=== PATIENT | female | born 1945 | race Caucasian/White ===

== ENCOUNTER 2017-06-26 09:59 | Observation (INO) | payer MEDICARE, BC ==
[2017-06-26] MEDS ORDERED: IPRATROPIUM-ALBUTEROL 3 ML NEB INHALATION STA (10:14)
[2017-06-26] MEDS ORDERED: SODIUM CHLORIDE 0.9% 1,000 ML IV STA (10:14)
[2017-06-26 10:37] LABS: Basophils % (A) 0 %; Eosinophils # (A) 0.2 k/uL (0-0.7); Eosinophils % (A) 3 %; HCT 42.5 % (34.0-46.0); Lymphocytes # (A) 2.3 k/uL (1.0-4.8); Lymphocytes % (A) 29 %; MCH 30.2 pg (25.0-35.0); MCV 91.7 fL (80.0-100.0); Mean Platelet Volume 6.8; Monocytes # (A) 0.5 k/uL (0-1.0); Monocytes % (A) 6 %; Neutrophils # (A) 4.7 k/uL (1.3-7.7); Neutrophils % (A) 60 %; Platelet Count 224 k/uL (150-450); RBC 4.64 m/uL (3.80-5.40); RDW 12.6 % (11.5-15.5); WBC 7.9 k/uL (3.8-10.6)
--- NOTE | 2017-06-26 10:38 | ED ---
SOB HPI - General Chief Complaint: Shortness of Breath Stated Complaint: Sob Time Seen by Provider: 06/26/17 10:11 Source: patient, RN notes reviewed Mode of arrival: wheelchair Limitations: no limitations - History of Present Illness Initial Comments: This is a 72-year-old female history of asthma and ALLERGIES who presents with complaints of shortness of breath this morning. She was making her bed when she had the exertional dyspnea. No overt chest pain she states she's been battling cold symptoms for the past 2 months with coughing and sneezing. No overt phlegm production no chest pain fevers chills sweats or other symptoms at this time. MD Complaint: shortness of breath - Related Data Home Medications Medication Instructions Recorded Confirmed Cholecalciferol [Vitamin D3] 5,000 unit PO DAILY 01/25/15 06/26/17 Gabapentin [Neurontin] 300 mg PO HS 01/25/15 06/26/17 Glucosam/Jaren-Msm1/C/Robert/Bosw 1 tab PO DAILY 01/25/15 06/26/17 [Glucosamine-Chondroitin Tablet] Ranitidine HCl 150 mg PO HS 01/25/15 06/26/17 Tolterodine [Detrol] 2 mg PO BID 01/25/15 06/26/17 Vitamin B Complex 1 cap PO DAILY 01/25/15 06/26/17 metFORMIN HCL [Glucophage] 500 mg PO DAILY 01/25/15 06/26/17 Biotin 5 mg PO DAILY 02/01/15 06/26/17 Triamcinolone Acetonide [Nasacort] 2 spray EA NOSTRIL DAILY 02/01/15 06/26/17 Aspirin [Adult Low Dose Aspirin EC] 81 mg PO DAILY 01/11/16 06/26/17 Cetirizine HCl 10 mg PO DAILY 01/11/16 06/26/17 Albuterol Sulfate [Proair Hfa] 2 puff INHALATION RT-Q6H PRN 06/26/17 06/26/17 Amoxicillin 2,000 mg PO ONCE PRN 06/26/17 06/26/17 Ascorbic Acid [Vitamin C] 500 mg PO DAILY 06/26/17 06/26/17 Atenolol 25 mg PO DAILY 06/26/17 06/26/17 Atorvastatin Calcium [Lipitor] 10 mg PO HS 06/26/17 06/26/17 Esomeprazole Magnesium [NexIUM] 20 mg PO DAILY 06/26/17 06/26/17 Estrogens, Conjugated Cream 1 applicator VAGINAL Q72H 06/26/17 06/26/17 [Premarin Cream] Ibuprofen [Advil] 200 mg PO Q8HR PRN 06/26/17 06/26/17 Lisinopril [Prinivil] 5 mg PO DAILY 06/26/17 06/26/17 Montelukast Sodium [Singulair] 10 mg PO HS 06/26/17 06/26/17 Sodium Chloride [Saline Nasal 1 spray EA NOSTRIL QID PRN 06/26/17 06/26/17 [place]] guaiFENesin-Coden 100-10MG/5ML 10 ml PO Q6HR PRN 06/26/17 06/26/17 [Robitussin AC] Allergies Allergy/AdvReac Type Severity Reaction Status Date / Time adhesive Allergy blisters Verified 06/26/17 11:30 Sulfa (Sulfonamide Allergy Unknown Verified 06/26/17 11:30 Antibiotics) sulfamethoxazole Allergy Rash/Hives Verified 06/26/17 11:30 [From Bactrim] trimethoprim [From Bactrim] Allergy Rash/Hives Verified 06/26/17 11:30 Review of Systems ROS Statement: Those systems with pertinent positive or pertinent negative responses have been documented in the HPI. ROS Other: All systems not noted in ROS Statement are negative. Past Medical History Past Medical History: Asthma, Diabetes Mellitus, Fibromyalgia, GERD/Reflux, Hyperlipidemia, Osteoarthritis (OA), Pneumonia, Skin Disorder Additional Past Medical History / Comment(s): varicose veins, occ "irregular/ fast heart beat", superfiscial thrombophlibitis, spinal stenosis, scoliosis, constipation, hiatal hernia, "bladder spasms", dry patches on skin on hands and arms, degenerative disk disease, bladder leakage History of Any Multi-Drug Resistant Organisms: None Reported Past Surgical History: Breast Surgery, Hysterectomy, Joint Replacement, Orthopedic Surgery, Tonsillectomy Additional Past Surgical History / Comment(s): breast biopsy, neuroma brennen feet removed, rt ankle surgery, sinus surgery, brennen cataracts, left hip replacement Additional Past Anesthesia/Blood Transfusion Reaction / Comment(s): "doesn't take much", Past Psychological History: Anxiety Smoking Status: Never smoker Past Alcohol Use History: None Reported Past Drug Use History: None Reported - Past Family History Mother Family Medical History: Cancer General Exam - General Exam Comments Initial Comments: This is a well-developed well-nourished awake alert oriented 3 female Limitations: no limitations General appearance: alert, anxious Head exam: Present: atraumatic, normocephalic, normal inspection Eye exam: Present: normal appearance, PERRL, EOMI. Absent: scleral icterus, conjunctival injection, periorbital swelling ENT exam: Present: normal exam, mucous membranes moist Neck exam: Present: normal inspection. Absent: tenderness, meningismus, lymphadenopathy Respiratory exam: Present: decreased breath sounds. Absent: respiratory distress, wheezes, rales, rhonchi, stridor Cardiovascular Exam: Present: regular rate, normal rhythm, normal heart sounds. Absent: systolic murmur, diastolic murmur, rubs, gallop, clicks GI/Abdominal exam: Present: soft, normal bowel sounds. Absent: distended, tenderness, guarding, rebound, rigid Extremities exam: Present: normal inspection, full ROM, normal capillary refill. Absent: tenderness, pedal edema, joint swelling, calf tenderness Back exam: Present: normal inspection Neurological exam: Present: alert, oriented X3, CN II-XII intact Psychiatric exam: Present: normal affect, anxious Skin exam: Present: warm, dry, intact, normal color. Absent: rash Course Vital Signs 06/26/17 06/26/17 06/26/17 10:01 10:44 12:56 Temperature 98.7 F Pulse Rate 79 68 90 Respiratory 22 18 Rate Blood Pressure 136/74 123/64 O2 Sat by Pulse 99 98 Oximetry 06/26/17 13:37 Temperature Pulse Rate 107 H Respiratory 20 Rate Blood Pressure O2 Sat by Pulse 97 Oximetry - Reevaluation(s) Reevaluation #1: 06/26/17 14:11 The patient reconsidered going home she would like to stay in the hospital. I did discuss case with Dr. Andrade. Patient will be admitted with cardiology consultation. Patient is requesting Dr. Alexander. Medical Decision Making - Medical Decision Making Patient had no further symptoms she was able ambulate without difficulty with currently no shortness of breath. Her saturations were maintained in the high 90s to 100% on room air. We did a long discussion regarding the possibilities of the etiology of the shortness of breath today pulmonary etiologies Ruled out at this time cardiac is considered I did offer the patient admission today she would rather go home she does have an appointment to see Dr. Alexander in 2 days. The patient does take aspirin every day. Patient was invited back at any time I did have a long discussion with her regarding findings of angina and anginal equivalents which she could possibly experience including chest pain shortness of breath diaphoresis nausea vomiting etc. - Lab Data Result diagrams: 06/26/17 10:23 06/26/17 10:23 Lab Results 06/26/17 06/26/17 06/26/17 Range/Units 10:23 10: 10:23 WBC 7.9 (3.8-10.6) k/uL RBC 4.64 (3.80-5.40) m/uL Hgb 14.0 (11.4-16.0) gm/dL Hct 42.5 (34.0-46.0) % MCV 91.7 (80.0-100.0) fL MCH 30.2 (25.0-35.0) pg MCHC 33.0 (31.0-37.0) g/dL RDW 12.6 (11.5-15.5) % Plt Count 224 (150-450) k/uL Neutrophils % 60 % Lymphocytes % 29 % Monocytes % 6 % Eosinophils % 3 % Basophils % 0 % Neutrophils # 4.7 (1.3-7.7) k/uL Lymphocytes # 2.3 (1.0-4.8) k/uL Monocytes # 0.5 (0-1.0) k/uL Eosinophils # 0.2 (0-0.7) k/uL Basophils # 0.0 (0-0.2) k/uL PT (9.0-12.0) sec INR (<1.2) APTT (22.0-30.0) sec D-Dimer (<0.60) mg/L FEU Sodium 140 (137-145) mmol/L Potassium 4.1 (3.5-5.1) mmol/L Chloride 105 (98-107) mmol/L Carbon Dioxide 24 (22-30) mmol/L Anion Gap 11 mmol/L BUN 12 (7-17) mg/dL Creatinine 0.69 (0.52-1.04) mg/dL Est GFR (MDRD) Af Amer >60 (>60 ml/min/1.73 sqM) Est GFR (MDRD) Non-Af >60 (>60 ml/min/1.73 sqM) Glucose 135 H (74-99) mg/dL Calcium 10.4 H (8.4-10.2) mg/dL Total Bilirubin 0.4 (0.2-1.3) mg/dL AST 21 (14-36) U/L ALT 32 (9-52) U/L Alkaline Phosphatase 84 (38-126) U/L Total Creatine Kinase 83 (30-135) U/L CK-MB (CK-2) 1.2 (0.0-2.4) ng/mL CK-MB (CK-2) Rel Index 1.4 Troponin I <0.012 (0.000-0.034) ng/mL NT-Pro-B Natriuret Pep pg/mL Total Protein 6.9 (6.3-8.2) g/dL Albumin 3.9 (3.5-5.0) g/dL 06/26/17 06/26/17 Range/Units 10:23 10:23 WBC (3.8-10.6) k/uL RBC (3.80-5.40) m/uL Hgb (11.4-16.0) gm/dL Hct (34.0-46.0) % MCV (80.0-100.0) fL MCH (25.0-35.0) pg MCHC (31.0-37.0) g/dL RDW (11.5-15.5) % Plt Count (150-450) k/uL Neutrophils % % Lymphocytes % % Monocytes % % Eosinophils % % Basophils % % Neutrophils # (1.3-7.7) k/uL Lymphocytes # (1.0-4.8) k/uL Monocytes # (0-1.0) k/uL Eosinophils # (0-0.7) k/uL Basophils # (0-0.2) k/uL PT 10.3 (9.0-12.0) sec INR 1.1 (<1.2) APTT 24.0 (22.0-30.0) sec D-Dimer 1.04 H (<0.60) mg/L FEU Sodium (137-145) mmol/L Potassium (3.5-5.1) mmol/L Chloride (98-107) mmol/L Carbon Dioxide (22-30) mmol/L Anion Gap mmol/L BUN (7-17) mg/dL Creatinine (0.52-1.04) mg/dL Est GFR (MDRD) Af Amer (>60 ml/min/1.73 sqM) Est GFR (MDRD) Non-Af (>60 ml/min/1.73 sqM) Glucose (74-99) mg/dL Calcium (8.4-10.2) mg/dL Total Bilirubin (0.2-1.3) mg/dL AST (14-36) U/L ALT (9-52) U/L Alkaline Phosphatase (38-126) U/L Total Creatine Kinase (30-135) U/L CK-MB (CK-2) (0.0-2.4) ng/mL CK-MB (CK-2) Rel Index Troponin I (0.000-0.034) ng/mL NT-Pro-B Natriuret Pep 30 pg/mL Total Protein (6.3-8.2) g/dL Albumin (3.5-5.0) g/dL - EKG Data -: EKG Interpreted by Me EKG shows normal: sinus rhythm (Normal sinus rhythm rate 74. Interval 156 QRS duration 70 QT since QTC of no acute ST-T wave changes) - Radiology Data Radiology results: report reviewed (I did review the imaging and reports. X- ray was not remarkable CAT scan shows no PE bilateral pulmonary nodules are noted however. The CAT scan was considered for any further evaluation.), image reviewed Disposition Clinical Impression: Bronchospasm, acute, Exertional dyspnea, Angina effort Disposition: ADMITTED IP TO THIS [facility] Condition: Stable Additional Instructions: Keep your follow-up appointment with Dr. Alexander in 2 days. Please return for further evaluation should he experience any more symptoms as we discussed.
[2017-06-26 10:47] LABS: D-Dimer 1.04 mg/L FEU (<0.60); INR 1.1 (<1.2); Prothrombin Time 10.3 sec (9.0-12.0)
[2017-06-26 10:48] LABS: ALT 32 U/L (9-52); AST 21 U/L (14-36); Albumin 3.9 g/dL (3.5-5.0); Alkaline Phosphatase 84 U/L (38-126); Anion Gap 11 mmol/L; Blood Urea Nitrogen 12 mg/dL (7-17); Calcium 10.4 mg/dL (8.4-10.2); Carbon Dioxide 24 mmol/L (22-30); Chloride 105 mmol/L (98-107); Glucose 135 mg/dL (74-99); Potassium 4.1 mmol/L (3.5-5.1); Sodium 140 mmol/L (137-145); Total Bilirubin 0.4 mg/dL (0.2-1.3); Total Protein 6.9 g/dL (6.3-8.2)
[2017-06-26 11:07] LABS: Creatine Kinase 83 U/L (30-135)
--- NOTE | 2017-06-26 11:17 | XR ---
EXAMINATION TYPE: XR chest 2V DATE OF EXAM: 06/26/2017 COMPARISON: NONE TECHNIQUE: PA and lateral views submitted. HISTORY: Shortness of breath FINDINGS: The lungs are clear and there is no pneumothorax, pleural effusion, or focal pneumonia. Curvature t he spine noted. Arthropathy of the shoulders with diffuse osteopenia. No overt failure. Degenerative changes seen. IMPRESSION: 1. No acute process.
[2017-06-26 11:18] LABS: Creatine Kinase MB 1.2 ng/mL (0.0-2.4); Troponin I <0.012 ng/mL (0.000-0.034)
[2017-06-26] MEDS ORDERED: RX INFO: IV CONTRAST WAS GIVEN 1 EACH MISC MISCELLANE PRN (11:40)
--- NOTE | 2017-06-26 12:26 | CT ---
EXAMINATION TYPE: CT angio chest DATE OF EXAM: 06/26/2017 COMPARISON: 06/26/2017 chest radiograph HISTORY: Shortness of breath and dizziness CT DLP: 478.4 mGycm. Automated Exposure Control for Dose Reduction was Utilized. CONTRAST: CTA scan of the thorax is performed with IV Contrast, patient injected with 100 mL of Omnipaque 350, pulmonary embolism protocol. MIP Images are created on CT scanner and reviewed. FINDINGS: LUNGS: The lungs are grossly clear, there is no concerning parenchymal mass or nodule identified. T here is no pleural effusion or pneumothorax seen. The tracheobronchial tree is patent. 4 mm probable perifissural lymph node is seen on series 5 image 74. Encasing right middle lobe segmental pulmonary artery on series 5 image 79 and series 10 image 63 there is a 1.0 x 1.0 x 0.9 cm right middle lobe p ulmonary nodule. A left basilar subpleural 3 mm pulmonary nodule is present on series 5 image 113. 4 mm subpleural nodule within the left lower lobe is seen on image 87. MEDIASTINUM: There is satisfactory enhancement of the pulmonary artery and its branches, there is no CT evidence for pulmonary embolism. There are no greater than 1 cm hilar or mediastinal lymph nodes. The largest mediastinal lymph node is seen within the pretracheal space measuring 7 mm in short axi s on image 35. No cardiomegaly or pericardial effusion is seen. OTHER: Small hiatal hernia is noted. Mild multilevel degenerative disc disease of the visualized thor acolumbar spine is present. IMPRESSION: 1. No CT evidence of pulmonary bolus. No focal consolidation, pleural effusion or pneumothorax. 2. Bilateral pulmonary nodules the largest measuring 1.0 cm encasing a right middle lobe segmental pu lmonary artery. Given its proximity to the pulmonary artery percutaneous biopsy would be difficult an d PET CT could be utilized for further evaluation.
[2017-06-26] MEDS ORDERED: NITROGLYCERIN SL TABS 0.4 MG TAB SUBLINGUAL PRN (14:13)
[2017-06-26] MEDS ORDERED: HEPARIN SODIUM,PORCINE 5,000 UNIT/ML 1 ML VIAL IV ONE (14:13)
[2017-06-26] MEDS ORDERED: HEPARIN SOD,PORK IN 0.45% NACL 25,000 UNIT in 0.45% NACL 1 500ML.BAG IV SCH (14:15)
[2017-06-26] MEDS ORDERED: SODIUM CHLORIDE 0.9% 1,000 ML IV SCH (14:15)
[2017-06-26] MEDS ORDERED: guaiFENesin-Coden 100-10MG/5ML 10 ML CUP PO PRN (14:17)
[2017-06-26] MEDS ORDERED: ALBUTEROL NEBULIZED 2.5 MG/3 ML INHALATION PRN (14:17)
[2017-06-26] MEDS ORDERED: IBUPROFEN 200 MG TAB PO PRN (14:17)
[2017-06-26] MEDS ORDERED: NALOXONE 0.4 MG/ML 1 ML VIAL IV PRN (15:10)
--- NOTE | 2017-06-26 15:33 | P.HPIM ---
History of Present Illness H&P Date: 06/26/17 Chief Complaint: SOB 72-year-old female history of asthma and seasonal ALLERGIES presented to the emergency department with complaints of shortness of breath that started this morning. Patient has been actually having shortness of breath over the last several months, she described having no energy, low appetite and general weakness. She has been struggling with a cold for the last 3 weeks. Her primary care physician prescribed amoxicillin and a steroid course for her and 3 days ago when she finished this course she started to feel better she try to increase her activity level and when she did that she started becoming severely short of breath. The shortness of breath is mainly exertional and is relieved by rest. No overt chest pain. She has been having cough productive of white and yellow phlegm at times, no hemoptysis. No nausea or vomiting. No fevers or chills. She thinks she got an upper respiratory infection because her also got sick after her. When I interviewed her she was just coming back from the bathroom and she was short of breath just from doing that. When the ER physician walked around all she got short-winded as well. Review of Systems 12 point review of system was performed, negative except for HPI Past Medical History Past Medical History: Asthma, Diabetes Mellitus, Fibromyalgia, GERD/Reflux, Hyperlipidemia, Osteoarthritis (OA), Pneumonia, Skin Disorder Additional Past Medical History / Comment(s): varicose veins, occ "irregular/ fast heart beat", superfiscial thrombophlibitis, spinal stenosis, scoliosis, constipation, hiatal hernia, "bladder spasms", dry patches on skin on hands and arms, degenerative disk disease, bladder leakage History of Any Multi-Drug Resistant Organisms: None Reported Past Surgical History: Breast Surgery, Hysterectomy, Joint Replacement, Orthopedic Surgery, Tonsillectomy Additional Past Surgical History / Comment(s): breast biopsy, neuroma brennen feet removed, rt ankle surgery, sinus surgery, brennen cataracts, left hip replacement Additional Past Anesthesia/Blood Transfusion Reaction / Comment(s): "doesn't take much", Past Psychological History: Anxiety Smoking Status: Never smoker Past Alcohol Use History: None Reported Past Drug Use History: None Reported - Past Family History Mother Family Medical History: Cancer Medications and Allergies Home Medications Medication Instructions Recorded Confirmed Type Cholecalciferol [Vitamin D3] 5,000 unit PO DAILY 01/25/15 06/26/17 History Gabapentin [Neurontin] 300 mg PO HS 01/25/15 06/26/17 History Glucosam/Jaren-Msm1/C/Robert/Bosw 1 tab PO DAILY 01/25/15 06/26/17 History [Glucosamine-Chondroitin Tablet] Ranitidine HCl 150 mg PO HS 01/25/15 06/26/17 History Tolterodine [Detrol] 2 mg PO BID 01/25/15 06/26/17 History Vitamin B Complex 1 cap PO DAILY 01/25/15 06/26/17 History metFORMIN HCL [Glucophage] 500 mg PO DAILY 01/25/15 06/26/17 History Biotin 5 mg PO DAILY 02/01/15 06/26/17 History Triamcinolone Acetonide [Nasacort] 2 spray EA NOSTRIL DAILY 02/01/15 06/26/17 History Aspirin [Adult Low Dose Aspirin EC] 81 mg PO DAILY 01/11/16 06/26/17 History Cetirizine HCl 10 mg PO DAILY 01/11/16 06/26/17 History Albuterol Sulfate [Proair Hfa] 2 puff INHALATION RT-Q6H PRN 06/26/17 06/26/17 History Amoxicillin 2,000 mg PO ONCE PRN 06/26/17 06/26/17 History Ascorbic Acid [Vitamin C] 500 mg PO DAILY 06/26/17 06/26/17 History Atenolol 25 mg PO DAILY 06/26/17 06/26/17 History Atorvastatin Calcium [Lipitor] 10 mg PO HS 06/26/17 06/26/17 History Esomeprazole Magnesium [NexIUM] 20 mg PO DAILY 06/26/17 06/26/17 History Estrogens, Conjugated Cream 1 applicator VAGINAL Q72H 06/26/17 06/26/17 History [Premarin Cream] Ibuprofen [Advil] 200 mg PO Q8HR PRN 06/26/17 06/26/17 History Lisinopril [Prinivil] 5 mg PO DAILY 06/26/17 06/26/17 History Montelukast Sodium [Singulair] 10 mg PO HS 06/26/17 06/26/17 History Sodium Chloride [Saline Nasal 1 spray EA NOSTRIL QID PRN 06/26/17 06/26/17 History [place]] guaiFENesin-Coden 100-10MG/5ML 10 ml PO Q6HR PRN 06/26/17 06/26/17 History [Robitussin AC] Allergies Allergy/AdvReac Type Severity Reaction Status Date / Time adhesive Allergy blisters Verified 06/26/17 11:30 Sulfa (Sulfonamide Allergy Unknown Verified 06/26/17 11:30 Antibiotics) sulfamethoxazole Allergy Rash/Hives Verified 06/26/17 11:30 [From Bactrim] trimethoprim [From Bactrim] Allergy Rash/Hives Verified 06/26/17 11:30 Physical Exam Vitals: Vital Signs Temp Pulse Resp BP Pulse Ox 06/26/17 15:06 97.4 F L 81 18 128/63 99 06/26/17 13:37 107 H 20 97 06/26/17 12:56 90 18 123/64 98 06/26/17 10:44 68 06/26/17 10:01 98.7 F 79 22 136/74 99 Intake and Output 06/26/17 06/26/17 06/26/17 06:59 14:59 22:59 Other: Weight 90.718 kg Patient Weight 06/27/17 06:59 Weight 90.718 kg Constitutional: No acute distress, conversant, pleasant Eyes:Anicteric sclerae, moist conjunctiva, no lid-lag, PERRLA, ENMT: Oropharynx clear, no erythema, exudates Neck: Supple, FROM, no masses, or JVD, No carotid bruits, No thyromegaly Lungs: Clear to auscultation, Clear to percussion, Normal respiratory effort, no accessory muscle use Cardiovascular: Heart regular in rate and rhythm, No murmurs, gallops, or rubs, No peripheral edema Abdominal: Soft, Nontender, no guarding, rebound or rigidity, Normoactive bowel sounds, No hepatomegaly, No splenomegaly, No palpable mass Skin: Normal temperature, tone, texture, turgor, no induration, No subcutaneous nodules, No rash, lesions, No ulcers Extremities: No digital cyanosis, No clubbing, Pedal pulses intact and symmetrical, Radial pulses intact and symmetrical, No calf tenderness Psychiatric: Alert and oriented to person, place and time, appropriate affect, intact judgement Neuro: Muscles Strength 5/5 in all 4 extremities, Sensation to light touch grossly present throughout, Cranial nerves II-XII grossly intact, no focal sensory deficits Results CBC & Chem 7: 06/26/17 10:23 06/26/17 10:23 Labs: Abnormal Lab Results - Last 24 Hours (Table) 06/26/17 06/26/17 Range/Units 10:23 10:23 D-Dimer 1.04 H (<0.60) mg/L FEU Glucose 135 H (74-99) mg/dL Calcium 10.4 H (8.4-10.2) mg/dL Assessment and Plan Plan: #1 Acute shortness of breath/history of asthma: She is not hypoxic, unclear etiology rule out non-ST elevation myocardial infarction. She does not seem to be having asthma exacerbation as she is not wheezing. Computed tomography scan of the chest showed some pulmonary nodules, will consult with pulmonary. No evidence of PE, consolidation or pulmonary edema was found in computed tomography scan. Cycle troponins Check influenza nasal screen Cardiology consult Heparin drip Continue aspirin, beta latoya and statin DuoNebs every 6 hours #2 Diabetes Mellitus type2: Sliding scale insulin with blood sugar checks every before meals and at bedtime Hold metformin #3 Fibromyalgia, GERD/Reflux, Hyperlipidemia, Osteoarthritis (OA): All stable Continue home medications
[2017-06-26] MEDS ORDERED: LISINOPRIL 5 MG TAB PO STA (16:42)
[2017-06-26] MEDS ORDERED: ATENOLOL 25 MG TAB PO STA (16:42)
[2017-06-26 16:55] LABS: Creatine Kinase 107 U/L (30-135)
[2017-06-26 17:03] LABS: Glucose,Whole Blood 158 mg/dL (75-99)
[2017-06-26 17:08] LABS: Troponin I <0.012 ng/mL (0.000-0.034)
[2017-06-26 17:16] LABS: Creatine Kinase MB 2.7 ng/mL (0.0-2.4)
[2017-06-26] MEDS: INSULIN ASPART 100 UNIT/ML 1 ML 10 ML VIAL SQ SCH ×2 (17:34→21:02)
[2017-06-26] MEDS: NITROGLYCERIN OINT 1 INCH/GM PACKET TOPICAL SCH (19:45)
[2017-06-26 20:29] LABS: Glucose,Whole Blood 120 mg/dL (75-99)
[2017-06-26] MEDS ORDERED: FAMOTIDINE 20 MG TAB PO SCH (21:00)
[2017-06-26] MEDS ORDERED: ATORVASTATIN 10 MG TAB PO SCH (21:00)
[2017-06-26] MEDS ORDERED: GABAPENTIN 300 MG CAP PO SCH (21:00)
[2017-06-26] MEDS ORDERED: MONTELUKAST 10 MG TAB PO SCH (21:00)
[2017-06-26 22:44] LABS: Creatine Kinase 176 U/L (30-135)
[2017-06-26 22:55] LABS: Troponin I <0.012 ng/mL (0.000-0.034)
[2017-06-27 04:27] LABS: Creatine Kinase MB 4.3 ng/mL (0.0-2.4)
[2017-06-27] MEDS: NITROGLYCERIN OINT 1 INCH/GM PACKET TOPICAL SCH ×2 (05:40→06:08)
[2017-06-27 06:31] LABS: Glucose,Whole Blood 103 mg/dL (75-99)
[2017-06-27 07:26] LABS: Basophils # (A) 0.1 k/uL (0-0.2); Basophils % (A) 1 %; Eosinophils # (A) 0.3 k/uL (0-0.7); Eosinophils % (A) 4 %; HCT 44.5 % (34.0-46.0); HGB 14.1 gm/dL (11.4-16.0); Lymphocytes # (A) 3.1 k/uL (1.0-4.8); Lymphocytes % (A) 34 %; MCH 29.9 pg (25.0-35.0); MCHC 31.7 g/dL (31.0-37.0); MCV 94.2 fL (80.0-100.0); Mean Platelet Volume 7.3; Monocytes # (A) 0.5 k/uL (0-1.0); Monocytes % (A) 6 %; Neutrophils % (A) 54 %; Platelet Count 229 k/uL (150-450); RBC 4.73 m/uL (3.80-5.40); RDW 13.7 % (11.5-15.5); WBC 9.1 k/uL (3.8-10.6)
[2017-06-27] MEDS ORDERED: PANTOPRAZOLE 40 MG TABLET PO SCH (07:30)
[2017-06-27] MEDS ORDERED: metFORMIN 500 MG TAB PO SCH (07:30)
--- NOTE | 2017-06-27 07:32 | P.CRDCN ---
History of Present Illness Consult date: 06/27/17 Chief complaint: Chest pain History of present illness: This is a pleasant 72-year-old female patient who sees Dr. Alexander in the office on regular basis with a past medical history significant for diabetes as well as dyslipidemia presented to the hospital complaining of chest discomfort. The patient did have flu symptoms about 2 weeks ago. Subsequently she developed cough productive of white sputum. She was feeling better and recovering well until about a week ago when she started experiencing chest discomfort. She describes a chest tightness, across the chest, without any radiation to the arm or neck or shoulders and it was associated with shortness of breath without any sweating or dizziness or lightheadedness or syncope. She stated the tightness sometimes is exertional when she walked and better with resting. The patient is not aware of any prior history of coronary artery disease but she does have diabetes and dyslipidemia. The d-dimer came in to be alleviated but the CTA of the chest did not show any PE but it did show a pulmonary nodule. The EKG showed sinus rhythm without any significant ST or T-wave abnormalities. 3 sets of cardiac enzymes came in to be unremarkable. Past Medical History Past Medical History: Asthma, Diabetes Mellitus, Fibromyalgia, GERD/Reflux, Hyperlipidemia, Osteoarthritis (OA), Pneumonia, Skin Disorder Additional Past Medical History / Comment(s): varicose veins, occ "irregular/ fast heart beat-pvs'c", superficial thrombophlebitis, spinal stenosis, scoliosis , constipation, hiatal hernia, "bladder spasms-leakage of urine", dry patches on skin on hands and arms, degenerative disk disease, neuropathy, seasonal allergies. History of Any Multi-Drug Resistant Organisms: None Reported Past Surgical History: Breast Surgery, Hysterectomy, Joint Replacement, Orthopedic Surgery, Tonsillectomy Additional Past Surgical History / Comment(s): breast biopsy-neg, neuroma brennen feet removed,discectomy, rt ankle surgery, sinus surgery, brennen cataracts, left hip replacement, partial hysterectomy-still hs ovaries, bunionectomy Additional Past Anesthesia/Blood Transfusion Reaction / Comment(s): "doesn't take much", Smoking Status: Never smoker - Past Family History Father Family Medical History: Dementia, Diabetes Mellitus, Hypertension Additional Family Medical History / Comment(s): enlarged heart, obesity Mother Family Medical History: Cancer Medications and Allergies Home Medications Medication Instructions Recorded Confirmed Type Cholecalciferol [Vitamin D3] 5,000 unit PO DAILY 01/25/15 06/26/17 History Gabapentin [Neurontin] 300 mg PO HS 01/25/15 06/26/17 History Glucosam/Jaren-Msm1/C/Robert/Bosw 1 tab PO DAILY 01/25/15 06/26/17 History [Glucosamine-Chondroitin Tablet] Ranitidine HCl 150 mg PO HS 01/25/15 06/26/17 History Tolterodine [Detrol] 2 mg PO BID 01/25/15 06/26/17 History Vitamin B Complex 1 cap PO DAILY 01/25/15 06/26/17 History metFORMIN HCL [Glucophage] 500 mg PO DAILY 01/25/15 06/26/17 History Biotin 5 mg PO DAILY 02/01/15 06/26/17 History Triamcinolone Acetonide [Nasacort] 2 spray EA NOSTRIL DAILY 02/01/15 06/26/17 History Aspirin [Adult Low Dose Aspirin EC] 81 mg PO DAILY 01/11/16 06/26/17 History Cetirizine HCl 10 mg PO DAILY 01/11/16 06/26/17 History Albuterol Sulfate [Proair Hfa] 2 puff INHALATION RT-Q6H PRN 06/26/17 06/26/17 History Amoxicillin 2,000 mg PO ONCE PRN 06/26/17 06/26/17 History Ascorbic Acid [Vitamin C] 500 mg PO DAILY 06/26/17 06/26/17 History Atenolol 25 mg PO DAILY 06/26/17 06/26/17 History Atorvastatin Calcium [Lipitor] 10 mg PO HS 06/26/17 06/26/17 History Esomeprazole Magnesium [NexIUM] 20 mg PO DAILY 06/26/17 06/26/17 History Estrogens, Conjugated Cream 1 applicator VAGINAL Q72H 06/26/17 06/26/17 History [Premarin Cream] Ibuprofen [Advil] 200 mg PO Q8HR PRN 06/26/17 06/26/17 History Lisinopril [Prinivil] 5 mg PO DAILY 06/26/17 06/26/17 History Montelukast Sodium [Singulair] 10 mg PO HS 06/26/17 06/26/17 History Sodium Chloride [Saline Nasal 1 spray EA NOSTRIL QID PRN 06/26/17 06/26/17 History [place]] guaiFENesin-Coden 100-10MG/5ML 10 ml PO Q6HR PRN 06/26/17 06/26/17 History [Robitussin AC] Allergies Allergy/AdvReac Type Severity Reaction Status Date / Time adhesive Allergy blisters Verified 06/26/17 11:30 Sulfa (Sulfonamide Allergy Unknown Verified 06/26/17 11:30 Antibiotics) sulfamethoxazole Allergy Rash/Hives Verified 06/26/17 11:30 [From Bactrim] trimethoprim [From Bactrim] Allergy Rash/Hives Verified 06/26/17 11:30 Physical Exam Vitals: Vital Signs Temp Pulse Pulse Resp BP BP Pulse Ox 06/27/17 04:00 97.8 F 77 18 101/66 98 06/26/17 22:21 18 06/26/17 19:53 97.8 F 79 18 111/66 98 06/26/17 19:39 18 06/26/17 17:01 98 06/26/17 16:20 97.5 F L 83 18 162/76 98 06/26/17 15:06 97.4 F L 81 18 128/63 99 06/26/17 13:37 107 H 20 97 06/26/17 12:56 90 18 123/64 98 06/26/17 10:44 68 06/26/17 10:01 98.7 F 79 22 136/74 99 Intake and Output 06/26/17 06/27/17 06/27/17 22:59 06:59 14:59 Other: Voiding Method Toilet Toilet # Voids 1 Weight 90.718 kg - Constitutional General appearance: no acute distress - Respiratory Respiratory: bilateral: CTA - Cardiovascular Rhythm: regular Heart sounds: normal: S1, S2 Results 06/26/17 10:23 06/26/17 10:23 Cardiac Enzymes 06/26/17 06/26/17 06/26/17 Range/Units 10:23 10:23 16:14 AST 21 (14-36) U/L CK-MB (CK-2) 1.2 2.7 H* (0.0-2.4) ng/mL Troponin I <0.012 <0.012 (0.000-0.034) ng/mL 06/26/17 Range/Units 22:06 AST (14-36) U/L CK-MB (CK-2) 4.3 H* (0.0-2.4) ng/mL Troponin I <0.012 (0.000-0.034) ng/mL Coagulation 06/26/17 06/26/17 Range/Units 10:23 22:06 PT 10.3 (9.0-12.0) sec APTT 24.0 46.1 H (22.0-30.0) sec CBC 06/26/17 Range/Units 10:23 WBC 7.9 (3.8-10.6) k/uL RBC 4.64 (3.80-5.40) m/uL Hgb 14.0 (11.4-16.0) gm/dL Hct 42.5 (34.0-46.0) % Plt Count 224 (150-450) k/uL Comprehensive Metabolic Panel 06/26/17 Range/Units 10:23 Sodium 140 (137-145) mmol/L Potassium 4.1 (3.5-5.1) mmol/L Chloride 105 (98-107) mmol/L Carbon Dioxide 24 (22-30) mmol/L BUN 12 (7-17) mg/dL Creatinine 0.69 (0.52-1.04) mg/dL Glucose 135 H (74-99) mg/dL Calcium 10.4 H (8.4-10.2) mg/dL AST 21 (14-36) U/L ALT 32 (9-52) U/L Alkaline Phosphatase 84 (38-126) U/L Total Protein 6.9 (6.3-8.2) g/dL Albumin 3.9 (3.5-5.0) g/dL Current Medications Generic Name Dose Route Start Last Admin Trade Name Freq PRN Reason Stop Dose Admin Albuterol Sulfate 2.5 mg 06/26/17 14:17 Ventolin Nebulized INHALATION RT-Q6H PRN Shortness Of Breath Ascorbic Acid 500 mg 06/27/17 09:00 Vitamin C PO DAILY [facility] Aspirin 81 mg 06/27/17 09:00 Aspirin PO DAILY [facility] Atenolol 25 mg 06/27/17 09:00 Tenormin PO DAILY ASHLEY Atorvastatin Calcium 10 mg 06/26/17 21:00 06/26/17 20:20 Lipitor PO 10 mg HS ASHLEY Administration Cholecalciferol 5,000 unit 06/27/17 09:00 Vitamin D3 PO DAILY [facility] Famotidine 20 mg 06/26/17 21:00 06/26/17 20:20 Pepcid PO 20 mg HS [facility] Administration Fluticasone Propionate 2 spray 06/27/17 09:00 Flonase Nasal [place] EA NOSTRIL DAILY [facility] Gabapentin 300 mg 06/26/17 21:00 06/26/17 20:20 Neurontin PO 300 mg HS [facility] Administration Guaifenesin/Codeine Phosphate 10 ml 06/26/17 14:17 Robitussin Ac PO Q6HR PRN Cough Heparin Sodium/Sodium Chloride 500 mls @ 19.95 mls/hr 06/26/17 14:15 15:04 25,000 unit/ Sodium Chloride IV 11 units/kg/hr .Q24H ASHLEY 19.95 mls/hr Protocol Administration 11 UNITS/KG/HR Sodium Chloride 1,000 mls @ 20 mls/hr 06/26/17 14:15 06/26/17 15:02 Saline 0.9% IV 20 mls/hr .Q24H [facility] Administration Ibuprofen 200 mg 06/26/17 14:17 Advil PO Q8HR PRN Mild Pain Insulin Aspart 0 unit 06/26/17 17:30 06/26/17 21:02 Novolog SQ Not Given ACHS [facility] Protocol Lisinopril 5 mg 06/27/17 09:00 Zestril PO DAILY [facility] Loratadine 10 mg 06/27/17 09:00 Claritin PO DAILY [facility] Metformin HCl 500 mg 06/27/17 07:30 Glucophage PO AC-BRKFST [facility] Miscellaneous Information 1 each 06/26/17 11:40 Rx Info: Iv Contrast Was Given MISCELLANE 06/28/17 11:40 DAILY PRN Per Protocol Montelukast Sodium 10 mg 06/26/17 21:00 06/26/17 20:20 Singulair PO 10 mg HS [facility] Administration Naloxone HCl 0.2 mg 06/26/17 15:10 Narcan IV Q2M PRN Opioid Reversal Nitroglycerin 1 inch 06/26/17 18:00 06/27/17 06:08 Nitro-Bid Oint TOPICAL Not Given Q6HR [facility] Nitroglycerin 0.4 mg 06/26/17 14:13 Nitrostat SUBLINGUAL Q5M PRN Chest Pain Oxybutynin Chloride 10 mg 06/27/17 09:00 Ditropan Xl PO DAILY ASHLEY Pantoprazole Sodium 40 mg 06/27/17 07:30 Protonix PO AC-BRKFST ASHLEY Vitamin B Complex/Vit C/Vit E/Zinc 1 each 06/27/17 09:00 Z-Bec PO DAILY ASHLEY Intake and Output 06/26/17 06/27/17 06/27/17 22:59 06:59 14:59 Other: Voiding Method Toilet Toilet # Voids 1 Weight 90.718 kg 06/26/17 10:23 06/26/17 10:23 Assessment and Plan Assessment: Assessment #1 intermittent episodes of chest discomfort #2 multiple risk factors for CAD including diabetes and dyslipidemia Plan #1 the patient was ruled out for acute coronary event #2 the EKG showed sinus rhythm without any ischemic changes #3 sets of cardiac enzymes came in to be unremarkable #4 I recommended proceeding with a stress test and follow-up with the patient. Thank you for allowing us participate in her care
[2017-06-27 07:34] VITALS: RESP 16
[2017-06-27 07:45] LABS: ALT 41 U/L (9-52); AST 27 U/L (14-36); Alkaline Phosphatase 92 U/L (38-126); Anion Gap 10 mmol/L; Blood Urea Nitrogen 13 mg/dL (7-17); Calcium 10.6 mg/dL (8.4-10.2); Carbon Dioxide 25 mmol/L (22-30); Chloride 108 mmol/L (98-107); Cholesterol 149 mg/dL (<200); Glucose 103 mg/dL (74-99); HDL Cholesterol 64 mg/dL (40-60); LDL Cholesterol,Calculated 66 mg/dL (0-99); Phosphorus 3.3 mg/dL (2.5-4.5); Potassium 4.8 mmol/L (3.5-5.1); Sodium 143 mmol/L (137-145); Total Bilirubin 0.5 mg/dL (0.2-1.3); Total Protein 6.9 g/dL (6.3-8.2); Triglycerides 95 mg/dL (<150)
[2017-06-27] MEDS ORDERED: LORATADINE 10 MG TAB PO SCH (09:00)
[2017-06-27] MEDS ORDERED: FLUTICASONE 50MCG/SPRAY NASAL 16GM EA NOSTRIL SCH (09:00)
[2017-06-27] MEDS ORDERED: CHOLECALCIFEROL 1,000 UNIT TAB PO SCH (09:00)
[2017-06-27] MEDS ORDERED: LISINOPRIL 5 MG TAB PO SCH (09:00)
[2017-06-27] MEDS ORDERED: ATENOLOL 25 MG TAB PO SCH (09:00)
[2017-06-27] MEDS ORDERED: NON-FORMULARY DRUG (Biotin [Biotin] 5 MG) PO SCH (09:00)
[2017-06-27] MEDS ORDERED: ASCORBIC ACID 500 MG TAB PO SCH (09:00)
[2017-06-27] MEDS ORDERED: B COMPLEX-VIT C-VIT E-ZINC 1 EACH TAB PO SCH (09:00)
[2017-06-27] MEDS ORDERED: ASPIRIN 325 MG TAB PO SCH (09:00)
[2017-06-27] MEDS ORDERED: NON-FORMULARY DRUG (Glucosam/Chon-Msm1/C/Mang/Bosw [Glucosamine-Chondroitin Tablet] 1 TAB) PO SCH (09:00)
[2017-06-27] MEDS ORDERED: ASPIRIN 81 MG PO SCH (09:00)
[2017-06-27] MEDS ORDERED: OXYBUTYNIN XL 5 MG TAB.ER.24 PO SCH (09:00)
[2017-06-27] MEDS: INSULIN ASPART 100 UNIT/ML 1 ML 10 ML VIAL SQ SCH (10:45)
--- NOTE | 2017-06-27 11:05 | NM ---
EXAMINATION TYPE: NM stress cardiolite complete DATE OF EXAM: 06/27/2017 COMPARISON: NONE HISTORY: Chest pain TECHNIQUE: After the intravenous administration of 10.89 mCi Tc 99m Sestamibi - Rest images obtained 45 minutes post injection. The patient exercised using a HERMILO protocol and 1 minute prior to peak exercise was injected with 29.2 mCi Tc 99m Sestamibi - Stress images obtained 10 minutes post inject ion. FINDINGS: Targeted heart rate was achieved during performance of the study. Review of stress and rest SPECT williams ges demonstrates no distinct perfusion abnormality. Gated analysis shows normal wall motion with an estimated left ventricular ejection fraction of 75 %. IMPRESSION: No scintigraphic evidence for reversible ischemia. Recommend echocardiographic correlation for elevat ed cardiac fraction.
[2017-06-27 11:42] VITALS: BP 140/100; PULSE 82; TEMP 97.4
--- NOTE | 2017-06-27 11:58 | EST ---
EXERCISE STRESS DATE OF SERVICE: 06/27/2017 AGE: 72 SEX: Female HT: 66" WT: 200 pounds PROTOCOL: CARDIOLITE HERMILO STAGE: II DURATION OF EXERCISE: 4:30 HEART RATE REST: 80 BLOOD PRESSURE REST: 92/68 MAXIMUM HEART RATE ACHIEVED: 131 MAXIMUM BLOOD PRESSURE: 127/68 85% MPHR: 128 100% MPHR: 150 METS: 4.6 INDICATIONS: Chest pain. CLINICAL INFORMATION: STRESS DATA: Pretesting physical examination showed heart rate 80, pressure 92/68 mmHg. Baseline EKG showed sinus mechanism. The patient exercised on the treadmill according to Hermilo protocol for a total of 4 minutes and 30 seconds and achieved 4.6 METs. Max heart rate was 131, which is about 87% of maximum predicted heart rate. Maximum blood pressure was 127/68 mmHg. Clinically, the patient developed shortness of breath without any chest pain or discomfort. The EKG showed about 0.[address]- segment depression during exercise as well as on recovery. CONCLUSION: 1. Poor exercise capacity. 2. Mild EKG changes in response to exercise. 3. Please follow up on the Cardiolite portion on a separate report from radiology department. MMODL / IJN: [id number] /
[2017-06-27 12:17] LABS: Glucose,Whole Blood 130 mg/dL (75-99)
--- NOTE | 2017-06-27 14:08 | ECHOF ---
Referral Reason:cp MEASUREMENTS -------- HEIGHT: 167.6 cm WEIGHT: 90.7 kg BP: IVSd: 1.2 cm (0.6 - 1.1) LVIDd: 3.6 cm (3.9 - 5.3) LVPWd: 1.2 cm (0.6 - 1.1) IVSs: 1.5 cm LVIDs: 2.5 cm LVPWs: 2.0 cm Ao Diam: 3.7 cm (2.0 - 3.7) AV Cusp: 2.3 cm (1.5 - 2.6) LA Diam: 3.3 cm (2.7 - 3.8) MV EXCURSION: 15.271 mm (> 18.000) MV EF SLOPE: 42 mm/s (70 - 150) EPSS: 0.3 cm MV E Alexander: 0.70 m/s MV DecT: 205 ms MV A Alexander: 0.70 m/s MV E/A Ratio: 1.01 RAP: 5.00 mmHg RVSP: 21.28 mmHg FINDINGS -------- Sinus rhythm. This was a technically difficult study with suboptimal apical views. The left ventricular size is normal. There is mild concentric left ventricular hypertrophy. Overa ll left ventricular systolic function is normal with, an EF between 55 - 60 %. The right ventricle is normal in size and function. The left atrium is normal in size. The right atrium is normal in size. The aortic valve is trileaflet, and appears structurally normal. No aortic stenosis or regurgitation. There is trace mitral regurgitation. Trace tricuspid regurgitation present. The right ventricular systolic pressure, as measured by Dopp ler, is 21.28mmHg. Pulmonic valve appears structurally normal. The aortic root size is normal. The pericardium is normal. CONCLUSIONS -------- 1. Sinus rhythm. 2. This was a technically difficult study with suboptimal apical views. 3. The left ventricular size is normal. 4. There is mild concentric left ventricular hypertrophy. 5. Overall left ventricular systolic function is normal with, an EF between 55 - 60 %. 6. The right ventricle is normal in size and function. 7. The left atrium is normal in size. 8. The right atrium is normal in size. 9. The aortic valve is trileaflet, and appears structurally normal. No aortic stenosis or regurgitati on. 10. There is trace mitral regurgitation. 11. Trace tricuspid regurgitation present. 12. The right ventricular systolic pressure, as measured by Doppler, is 21.28mmHg. 13. Pulmonic valve appears structurally normal. 14. The aortic root size is normal. 15. The pericardium is normal. [employer] SCIENCE TEACHER: Sun Croft RDCS
--- NOTE | 2017-06-27 14:31 | P.DS ---
Providers Date of admission: 06/26/17 14:13 Expected date of discharge: 06/27/17 Attending physician: Susi Montgomery, Consults: 06/26/17 14:13 Consult Physician Urgent Consulting Provider: Aiden Alexander Consult Reason/Comments: angina Do you want consulting provider notified?: Yes 06/26/17 15:13 Consult Physician Routine Consulting Provider: Ana Luisa Faith Consult Reason/Comments: lung nodules. Do you want consulting provider notified?: Yes Primary care physician: Sera Vanegas MD Hospital Course: 72-year-old female history of asthma and seasonal ALLERGIES presented to the emergency department with complaints of shortness of breath that started this morning. Patient has been actually having shortness of breath over the last several months, she described having no energy, low appetite and general weakness. She has been struggling with a cold for the last 3 weeks. Her primary care physician prescribed amoxicillin and a steroid course for her and 3 days ago when she finished this course she started to feel better she try to increase her activity level and when she did that she started becoming severely short of breath. The shortness of breath is mainly exertional and is relieved by rest. No overt chest pain. She has been having cough productive of white and yellow phlegm at times, no hemoptysis. No nausea or vomiting. No fevers or chills. She thinks she got an upper respiratory infection because her also got sick after her. When I interviewed her she was just coming back from the bathroom and she was short of breath just from doing that. When the ER physician walked around all she got short-winded as well. Patient was admitted to the hospital, she was evaluated by cardiology and pulmonary service. Initially patient was treated with heparin drip for presumed unstable angina. Troponins were cycled and stayed negative. Cardiology ordered a nuclear imaging stress testing and that came back negative. She had a computed tomography scan of the chest in the emergency department and that did not show any evidence of pulmonary embolus but it showed multiple pulmonary emboli largest measuring 1 cm in diameter, some encasing some pulmonary artery branches. That was discussed with pulmonary service Dr. Faith who suggested following up in the pulmonary clinic to follow-up on that. Dr. Faith also treated her for asthma exacerbation with steroids and Advair. Patient is currently feeling much better and would like to go home, she will be discharged home in a stable condition. Discharge time 35 minutes. Patient Condition at Discharge: Stable Plan - Discharge Summary Discharge Rx Participant: No New Discharge Prescriptions: New Fluticasone/Salmeterol [Advair 500-50 Diskus] 1 inhalation PO BID 30 Days #1 diskus predniSONE 10 mg PO DAILY 12 Days #24 tab Continue Ranitidine HCl 150 mg PO HS Gabapentin [Neurontin] 300 mg PO HS Cholecalciferol [Vitamin D3] 5,000 unit PO DAILY metFORMIN HCL [Glucophage] 500 mg PO DAILY Tolterodine [Detrol] 2 mg PO BID Vitamin B Complex 1 cap PO DAILY Glucosam/Jaren-Msm1/C/Robert/Bosw [Glucosamine-Chondroitin Tablet] 1 tab PO DAILY Biotin 5 mg PO DAILY Triamcinolone Acetonide [Nasacort] 2 spray EA NOSTRIL DAILY Aspirin [Adult Low Dose Aspirin EC] 81 mg PO DAILY Cetirizine HCl 10 mg PO DAILY Ascorbic Acid [Vitamin C] 500 mg PO DAILY guaiFENesin-Coden 100-10MG/5ML [Robitussin AC] 10 ml PO Q6HR PRN PRN Reason: Cough Montelukast Sodium [Singulair] 10 mg PO HS Lisinopril [Prinivil] 5 mg PO DAILY Ibuprofen [Advil] 200 mg PO Q8HR PRN PRN Reason: Pain Estrogens, Conjugated Cream [Premarin Cream] 1 applicator VAGINAL Q72H Esomeprazole Magnesium [NexIUM] 20 mg PO DAILY Atorvastatin Calcium [Lipitor] 10 mg PO HS Atenolol 25 mg PO DAILY Albuterol Sulfate [Proair Hfa] 2 puff INHALATION RT-Q6H PRN PRN Reason: Shortness Of Breath Sodium Chloride [Saline Nasal [place]] 1 spray EA NOSTRIL QID PRN PRN Reason: IRRIGATE SINUSES Discontinued Amoxicillin 2,000 mg PO ONCE PRN PRN Reason: DENTAL APPT Discharge Medication List Cholecalciferol [Vitamin D3] 5,000 unit PO DAILY 01/25/15 [History] Gabapentin [Neurontin] 300 mg PO HS 01/25/15 [History] Glucosam/Jaren-Msm1/C/Robert/Bosw [Glucosamine-Chondroitin Tablet] 1 tab PO DAILY 01/25/15 [History] Ranitidine HCl 150 mg PO HS 01/25/15 [History] Tolterodine [Detrol] 2 mg PO BID 01/25/15 [History] Vitamin B Complex 1 cap PO DAILY 01/25/15 [History] metFORMIN HCL [Glucophage] 500 mg PO DAILY 01/25/15 [History] Biotin 5 mg PO DAILY 02/01/15 [History] Triamcinolone Acetonide [Nasacort] 2 spray EA NOSTRIL DAILY 02/01/15 [History] Aspirin [Adult Low Dose Aspirin EC] 81 mg PO DAILY 01/11/16 [History] Cetirizine HCl 10 mg PO DAILY 01/11/16 [History] Albuterol Sulfate [Proair Hfa] 2 puff INHALATION RT-Q6H PRN 06/26/17 [History] Ascorbic Acid [Vitamin C] 500 mg PO DAILY 06/26/17 [History] Atenolol 25 mg PO DAILY 06/26/17 [History] Atorvastatin Calcium [Lipitor] 10 mg PO HS 06/26/17 [History] Esomeprazole Magnesium [NexIUM] 20 mg PO DAILY 06/26/17 [History] Estrogens, Conjugated Cream [Premarin Cream] 1 applicator VAGINAL Q72H 06/26/17 [History] Ibuprofen [Advil] 200 mg PO Q8HR PRN 06/26/17 [History] Lisinopril [Prinivil] 5 mg PO DAILY 06/26/17 [History] Montelukast Sodium [Singulair] 10 mg PO HS 06/26/17 [History] Sodium Chloride [Saline Nasal [place]] 1 spray EA NOSTRIL QID PRN 06/26/17 [ History] guaiFENesin-Coden 100-10MG/5ML [Robitussin AC] 10 ml PO Q6HR PRN 06/26/17 [ History] Fluticasone/Salmeterol [Advair 500-50 Diskus] 1 inhalation PO BID 30 Days #1 diskus 06/27/17 [Rx] predniSONE 10 mg PO DAILY 12 Days #24 tab 06/27/17 [Rx] Follow up Appointment(s)/Referral(s): Aiden Alexander MD [STAFF PHYSICIAN] - 2 Weeks Ana Luisa Faith MD [STAFF PHYSICIAN] - 1 Week Patient Instructions/Handouts: Angina (GEN), Dyspnea (GEN) Activity/Diet/Wound Care/Special Instructions: Keep your follow-up appointment with Dr. Alexander in 2 days. Please return for further evaluation should you experience any more symptoms as we discussed.
--- NOTE | 2017-06-27 16:43 | P.CNPUL ---
History of Present Illness Consult date: 06/27/17 Reason for consult: dyspnea History of present illness: A very pleasant 72-year-old female patient who presented to the hospital because of worsening shortness of breath. The patient was also having increased cough and chest congestion. She is was struggling of a chest cold for the past 3 weeks. Apparently prior to that she was having recurrent sinus infection for which she had seen ENT physician and she had completed 3 rounds of antibiotics. Upon further questioning, the patient has had history of elemental ALLERGIES. The patient has seen an credit review analyst for many years, in [place], and she has received ALLERGY shots and she has been maintained on a combination of antihistamines and Singulair for many years. She was also diagnosed having bronchial asthma in the past. She was treated with Advair and subsequently added treatment was discontinued and she has been utilizing prior rescue inhaler on as needed basis. The patient had a computed tomography scan of the chest that was done during this current hospital stay that showed no evidence of any pulmonary embolism. A nonspecific right lung nodule measuring 1.0 cm in size was seen in the right midlung and there is other smaller subcentimeter pulmonary nodules in the left lung base. Lungs: Essentially clear. Note that the patient is a lifetime nonsmoker. For all this reasons, pulmonary consultation was requested. Meanwhile, the patient underwent a cardiac workup. This included an echocardiogram that showed no acute abnormalities. A Cardiolite stress test was also done that was also within normal and there was no evidence of any reversible ischemia. The patient has no history of nasal polyposis. No history of eczema. Has ALLERGIES evident has undergone immunotherapy in the past. No pleurisy. No chest pain. No swelling lower extremities. No other complaints otherwise for now. Review of Systems Constitutional: Denies chills, Denies fever Eyes: denies blurred vision, denies bulging eye, denies decreased vision Ears: deny: decreased hearing, ear discharge, earache Ears, nose, mouth and throat: Reports post-nasal drip, Reports sinus pain, Reports sinus pressure Cardiovascular: Reports decreased exercise tolerance, Reports dyspnea on exertion, Reports shortness of breath Respiratory: Reports cough, Reports wheezing Gastrointestinal: Denies abdominal pain, Denies diarrhea, Denies nausea, Denies vomiting Genitourinary: Denies dysuria, Denies hematuria Musculoskeletal: Denies myalgias Musculoskeletal: absent: ankle pain, ankle stiffness, ankle swelling Integumentary: Denies pruritus, Denies rash Neurological: Denies numbness, Denies weakness Psychiatric: Denies anxiety, Denies depression Endocrine: Denies fatigue, Denies weight change Hematologic/Lymphatic: Reports as per HPI Allergic/Immunologic: Reports as per HPI Past Medical History Past Medical History: Asthma, Diabetes Mellitus, Fibromyalgia, GERD/Reflux, Hyperlipidemia, Osteoarthritis (OA), Pneumonia, Skin Disorder Additional Past Medical History / Comment(s): History of bronchial asthma, chronic ALLERGIC rhinitis, fibromyalgia, acid reflux, hyperlipidemia, osteoarthritis, superficial thrombophlebitis, spinal stenosis, scoliosis of the spine, hiatal hernia, degenerative disc disease, peripheral neuropathy History of Any Multi-Drug Resistant Organisms: None Reported Past Surgical History: Breast Surgery, Hysterectomy, Joint Replacement, Orthopedic Surgery, Tonsillectomy Additional Past Surgical History / Comment(s): breast biopsy-neg, neuroma brennen feet removed,discectomy, rt ankle surgery, sinus surgery, brennen cataracts, left hip replacement, partial hysterectomy-still hs ovaries, bunionectomy Additional Past Anesthesia/Blood Transfusion Reaction / Comment(s): "doesn't take much", Smoking Status: Never smoker - Past Family History Father Family Medical History: Dementia, Diabetes Mellitus, Hypertension Additional Family Medical History / Comment(s): enlarged heart, obesity Mother Family Medical History: Cancer Medications and Allergies Home Medications Medication Instructions Recorded Confirmed Type Cholecalciferol [Vitamin D3] 5,000 unit PO DAILY 01/25/15 06/26/17 History Gabapentin [Neurontin] 300 mg PO HS 01/25/15 06/26/17 History Glucosam/Jaren-Msm1/C/Robert/Bosw 1 tab PO DAILY 01/25/15 06/26/17 History [Glucosamine-Chondroitin Tablet] Ranitidine HCl 150 mg PO HS 01/25/15 06/26/17 History Tolterodine [Detrol] 2 mg PO BID 01/25/15 06/26/17 History Vitamin B Complex 1 cap PO DAILY 01/25/15 06/26/17 History metFORMIN HCL [Glucophage] 500 mg PO DAILY 01/25/15 06/26/17 History Biotin 5 mg PO DAILY 02/01/15 06/26/17 History Triamcinolone Acetonide [Nasacort] 2 spray EA NOSTRIL DAILY 02/01/15 06/26/17 History Aspirin [Adult Low Dose Aspirin EC] 81 mg PO DAILY 01/11/16 06/26/17 History Cetirizine HCl 10 mg PO DAILY 01/11/16 06/26/17 History Albuterol Sulfate [Proair Hfa] 2 puff INHALATION RT-Q6H PRN 06/26/17 06/26/17 History Ascorbic Acid [Vitamin C] 500 mg PO DAILY 06/26/17 06/26/17 History Atenolol 25 mg PO DAILY 06/26/17 06/26/17 History Atorvastatin Calcium [Lipitor] 10 mg PO HS 06/26/17 06/26/17 History Esomeprazole Magnesium [NexIUM] 20 mg PO DAILY 06/26/17 06/26/17 History Estrogens, Conjugated Cream 1 applicator VAGINAL Q72H 06/26/17 06/26/17 History [Premarin Cream] Ibuprofen [Advil] 200 mg PO Q8HR PRN 06/26/17 06/26/17 History Lisinopril [Prinivil] 5 mg PO DAILY 06/26/17 06/26/17 History Montelukast Sodium [Singulair] 10 mg PO HS 06/26/17 06/26/17 History Sodium Chloride [Saline Nasal 1 spray EA NOSTRIL QID PRN 06/26/17 06/26/17 History [place]] guaiFENesin-Coden 100-10MG/5ML 10 ml PO Q6HR PRN 06/26/17 06/26/17 History [Robitussin AC] Fluticasone/Salmeterol [Advair 1 inhalation PO BID 30 Days #1 06/27/17 Rx 500-50 Diskus] diskus predniSONE 10 mg PO DAILY 12 Days #24 tab 06/27/17 Rx Allergies Allergy/AdvReac Type Severity Reaction Status Date / Time adhesive Allergy blisters Verified 06/26/17 11:30 Sulfa (Sulfonamide Allergy Unknown Verified 06/26/17 11:30 Antibiotics) sulfamethoxazole Allergy Rash/Hives Verified 06/26/17 11:30 [From Bactrim] trimethoprim [From Bactrim] Allergy Rash/Hives Verified 06/26/17 11:30 Physical Exam Vitals: Vital Signs Temp Pulse Resp BP Pulse Ox 06/27/17 11:40 97.4 F L 82 16 140/100 97 06/27/17 07:33 98.2 F 68 16 103/59 97 06/27/17 04:00 97.8 F 77 18 101/66 98 06/26/17 22:21 18 06/26/17 19:53 97.8 F 79 18 111/66 98 06/26/17 19:39 18 06/26/17 17:01 98 Intake and Output 06/27/17 06/27/17 06/27/17 06:59 14:59 22:59 Intake Total 236 Balance 236 Intake: Oral 236 Other: Voiding Method Toilet Toilet # Voids 1 Gen. appearance the patient is calm and comfortable molecular distress.Head exam was generally normal. There was no scleral icterus or corneal arcus. Mucous membranes were moist.Neck was supple and without jugular venous distension, thyromegaly, or carotid bruits. Carotids were easily palpable bilaterally. There was no adenopathy. Lung sounds are diminished and there is some scattered expiratory wheezes upon forced respiratory maneuvers.Cardiac exam revealed the PMI to be normally situated and sized. The rhythm was regular and no extrasystoles were noted during several minutes of auscultation. The first and second heart sounds were normal and physiologic splitting of the second heart sound was noted. There were no murmurs, rubs, clicks, or gallops. Abdominal exam revealed normal bowel sounds. The abdomen was soft, non-tender, and without masses, organomegaly, or appreciable enlargement of the abdominal aorta..Examination of the extremities revealed easily palpable radial, femoral and pedal pulses. There was no cyanosis, clubbing or edema.Examination of the skin revealed no evidence of significant rashes, suspicious appearing nevi or other concerning lesions. Neurologically patient is awake and alert and there is no focal neurological deficits. Results - Laboratory Findings CBC and BMP: 06/27/17 06:37 06/27/17 06:37 PT/INR, D-dimer PT 10.3 sec (9.0-12.0) 06/26/17 10:23 INR 1.1 (<1.2) 06/26/17 10:23 D-Dimer 1.04 mg/L FEU (<0.60) H 06/26/17 10:23 Abnormal lab findings: Abnormal Labs 06/26/17 06/26/17 06/26/17 10:23 10:23 16:14 APTT D-Dimer 1.04 H Chloride Glucose 135 H POC Glucose (mg/dL) Calcium 10.4 H Total Creatine Kinase CK-MB (CK-2) 2.7 H* HDL Cholesterol 06/26/17 06/26/17 06/26/17 17:00 20:21 22:06 APTT D-Dimer Chloride Glucose POC Glucose (mg/dL) 158 H 120 H Calcium Total Creatine Kinase 176 H CK-MB (CK-2) 4.3 H* HDL Cholesterol 06/26/17 06/27/17 06/27/17 22:06 06:28 06:37 APTT 46.1 H D-Dimer Chloride 108 H Glucose 103 H POC Glucose (mg/dL) 103 H Calcium 10.6 H Total Creatine Kinase CK-MB (CK-2) HDL Cholesterol 64 H 06/27/17 06/27/17 06:37 12:13 APTT 53.3 H D-Dimer Chloride Glucose POC Glucose (mg/dL) 130 H Calcium Total Creatine Kinase CK-MB (CK-2) HDL Cholesterol - Diagnostic Findings Chest x-ray: image reviewed Assessment and Plan Plan: Assessment 1 shortness of breath on the basis of asthma activity/exacerbation. Otherwise there is no other clear cardiac or pulmonary causes for the patient's ongoing shortness of breath. This needs to be managed on outpatient basis. 2 chronic by medical ALLERGIES and ALLERGIC rhinitis and the patient is status post immunotherapy 3 pulmonary nodule involving the right mid lung measuring 1.0 cm in size in addition to subcentimeter by 2 pulmonary nodules that needs to be followed up on outpatient basis. Overall risk for lung cancer is low based on the radiographic features in the based on her nonsmoking status. 4 diabetes mellitus 5 fibromyalgia 6 acid reflux 7 hyperlipidemia 8 osteoarthritis Plan The patient will be started back on Advair Diskus. She'll be started a dose of 500/50 one puff twice a day. The patient will continue the Singulair and the Zyrtec. The patient will be started on a prednisone burst taper. The patient will see me back in the pulmonary office in 7-10 days for her pulmonary function test and further investigation of her shortness of breath. As for the pulmonary nodules, these are nonspecific findings and will be monitored with CAT scan surveillance every 6 months. Overall suspicion for lung cancer is low in this patient who is a lifetime nonsmoker. Cardiac workup has also been negative. Discussed the case with the hospitalist on the patient's is good for discharge.
== END 2017-06-27 14:33 | disposition home or self-care (01) ==
LOC: EC 09:59 → 3OBS 14:13
PROVIDERS: ADMIT Internal Medicine; ATTEND Internal Medicine
DX: J45.901 Unspecified asthma with (acute) exacerbation (principal); R91.8 Other nonspecific abnormal finding of lung field; R79.89 Other specified abnormal findings of blood chemistry; I10 Essential (primary) hypertension; J30.2 Other seasonal allergic rhinitis; R53.1 Weakness; M79.7 Fibromyalgia; E11.42 Type 2 diabetes mellitus with diabetic polyneuropathy; M19.90 Unspecified osteoarthritis, unspecified site; K21.9 Gastro-esophageal reflux disease without esophagitis; E78.5 Hyperlipidemia, unspecified; F41.9 Anxiety disorder, unspecified; N32.89 Other specified disorders of bladder; M48.00 Spinal stenosis, site unspecified; K44.9 Diaphragmatic hernia without obstruction or gangrene; L98.9 Disorder of the skin and subcutaneous tissue, unspecified; I83.90 Asymptomatic varicose veins of unspecified lower extremity; Z79.82 Long term (current) use of aspirin; Z79.84 Long term (current) use of oral hypoglycemic drugs; Z79.899 Other long term (current) drug therapy; Z88.1 Allergy status to other antibiotic agents; Z88.2 Allergy status to sulfonamides; Z87.01 Personal history of pneumonia (recurrent); Z96.642 Presence of left artificial hip joint
CPT/HCPCS: 99285 ×2; 96365 ×2; 96376 ×2; 96366 ×2; 36415; 94640; 93005; 93017; 93306; 85379; 83880; 80061; 80053 ×2; 82550; 82553; 83735; 84100; 84484; 85025 ×2; 85610; 85730 ×2; 87502; 71046; 71275; 78452; G0378 ×2; A9500; J1644 ×2; Q9967

== ENCOUNTER 2017-07-09 10:30 | Emergency (ER) | payer MEDICARE, BC ==
[2017-07-09] MEDS ORDERED: SODIUM CHLORIDE 0.9% 500 ML IV STA (12:23)
[2017-07-09] MEDS ORDERED: RX INFO: IV CONTRAST WAS GIVEN 1 EACH MISC MISCELLANE PRN (12:26)
--- NOTE | 2017-07-09 12:26 | ED ---
General Adult HPI <Ramirez Blake - Last Filed: 07/09/17 14:42> - General Source: patient, RN notes reviewed, old records reviewed Mode of arrival: ambulatory Limitations: no limitations <Karan Barrett - Last Filed: 07/09/17 17:07> - General Chief complaint: Abdominal Pain Stated complaint: Colon issues Time Seen by Provider: 07/09/17 12:12 - History of Present Illness Initial comments: Patient 72-year-old female who presents emergency room today with a chief complaint of blood in her stool and some constipation. Patient is met that she was seen in the hospital recently for asthma exacerbation. She states she's been on steroids. Patient does admit that she has been dealing with some bouts constipation. States is a chronic problem. She states she does use a stool softener. She states she does takes laxative occasionally. She admits that she did a laxative on July 04. She states that she was on the toilet she was straining she blacked out. She states she woke up in a pile of stool. She states that since that time she's not had a good bowel movement again. She's been trying a laxative with little relief. She does admit to what she does see , looks like just blood and "tissue" there is no formed stool. Patient admits to some cramping in the lower abdomen. She denies any complaints or symptoms. Patient denies any recent fever, chills, shortness of breath, chest pain, back pain, nausea or vomiting, numbness or tingling, dysuria or hematuria, constipation, headaches or visual changes, or any other complaints. (Karan Barrett) - Related Data Home Medications Medication Instructions Recorded Confirmed Cholecalciferol [Vitamin D3] 5,000 unit PO DAILY 01/25/15 07/09/17 Gabapentin [Neurontin] 300 mg PO HS 01/25/15 07/09/17 Glucosam/Jaren-Msm1/C/Robert/Bosw 1 tab PO DAILY 01/25/15 07/09/17 [Glucosamine-Chondroitin Tablet] Ranitidine HCl 150 mg PO HS 01/25/15 07/09/17 Tolterodine [Detrol] 2 mg PO BID 01/25/15 07/09/17 Vitamin B Complex 1 cap PO DAILY 01/25/15 07/09/17 metFORMIN HCL [Glucophage] 500 mg PO DAILY 01/25/15 07/09/17 Biotin 5 mg PO DAILY 02/01/15 07/09/17 Triamcinolone Acetonide [Nasacort] 2 spray EA NOSTRIL DAILY 02/01/15 07/09/17 Aspirin [Adult Low Dose Aspirin EC] 81 mg PO DAILY 01/11/16 07/09/17 Cetirizine HCl 10 mg PO DAILY 01/11/16 07/09/17 Albuterol Sulfate [Proair Hfa] 2 puff INHALATION RT-Q6H PRN 06/26/17 07/09/17 Ascorbic Acid [Vitamin C] 500 mg PO DAILY 06/26/17 07/09/17 Atenolol 25 mg PO DAILY 06/26/17 07/09/17 Atorvastatin Calcium [Lipitor] 10 mg PO HS 06/26/17 07/09/17 Esomeprazole Magnesium [NexIUM] 20 mg PO DAILY 06/26/17 07/09/17 Estrogens, Conjugated Cream 1 applicator VAGINAL Q72H 06/26/17 07/09/17 [Premarin Cream] Ibuprofen [Advil] 200 mg PO Q8HR PRN 06/26/17 07/09/17 Lisinopril [Prinivil] 5 mg PO DAILY 06/26/17 07/09/17 Montelukast Sodium [Singulair] 10 mg PO HS 06/26/17 07/09/17 Sodium Chloride [Saline Nasal 1 spray EA NOSTRIL QID PRN 06/26/17 07/09/17 [place]] guaiFENesin-Coden 100-10MG/5ML 10 ml PO Q6HR PRN 06/26/17 07/09/17 [Robitussin AC] Amoxicillin 2,000 mg PO ONCE PRN 07/09/17 07/09/17 Fluticasone/Salmeterol [Advair 1 inhalation PO RT-BID 07/09/17 07/09/17 500-50 Diskus] Previous Rx's Medication Instructions Recorded Polyethylene Glycol 3350 [Miralax] 17 gm PO DAILY #10 packet 07/09/17 Allergies Allergy/AdvReac Type Severity Reaction Status Date / Time adhesive Allergy blisters Verified 07/09/17 12:14 Sulfa (Sulfonamide Allergy Unknown Verified 07/09/17 12:14 Antibiotics) sulfamethoxazole Allergy Rash/Hives Verified 07/09/17 12:14 [From Bactrim] trimethoprim [From Bactrim] Allergy Rash/Hives Verified 07/09/17 12:14 Review of Systems ROS Other: All systems not noted in ROS Statement are negative. <Ramirez Blake - Last Filed: 07/09/17 14:42> ROS Other: All systems not noted in ROS Statement are negative. <Karan Barrett - Last Filed: 07/09/17 17:07> ROS Statement: Those systems with pertinent positive or pertinent negative responses have been documented in the HPI. Past Medical History Past Medical History: Asthma, Diabetes Mellitus, Fibromyalgia, GERD/Reflux, Hyperlipidemia, Osteoarthritis (OA), Pneumonia, Skin Disorder Additional Past Medical History / Comment(s): History of bronchial asthma, chronic ALLERGIC rhinitis, fibromyalgia, acid reflux, hyperlipidemia, osteoarthritis, superficial thrombophlebitis, spinal stenosis, scoliosis of the spine, hiatal hernia, degenerative disc disease, peripheral neuropathy History of Any Multi-Drug Resistant Organisms: None Reported Past Surgical History: Breast Surgery, Hysterectomy, Joint Replacement, Orthopedic Surgery, Tonsillectomy Additional Past Surgical History / Comment(s): breast biopsy-neg, neuroma brennen feet removed,discectomy, rt ankle surgery, sinus surgery, brennen cataracts, left hip replacement, partial hysterectomy-still hs ovaries, bunionectomy Additional Past Anesthesia/Blood Transfusion Reaction / Comment(s): "doesn't take much", Past Psychological History: Anxiety Smoking Status: Never smoker Past Alcohol Use History: None Reported Past Drug Use History: None Reported - Past Family History Father Family Medical History: Dementia, Diabetes Mellitus, Hypertension Additional Family Medical History / Comment(s): enlarged heart, obesity Mother Family Medical History: Cancer <Karan Barrett - Last Filed: 07/09/17 17:07> General Exam <Ramirez Blake - Last Filed: 07/09/17 14:42> Limitations: no limitations <Karan Barrett - Last Filed: 07/09/17 17:07> - General Exam Comments Initial Comments: General: The patient is awake and alert, in no distress, and does not appear acutely ill. Eye: Pupils are equal, round and reactive to light, extra-ocular movements are intact. No nystagmus. There is normal conjunctiva bilaterally. No signs of icterus. Ears, nose, mouth and throat: There are moist mucous membranes and no oral lesions. Neck: The neck is supple, there is no tenderness or JVD. Cardiovascular: There is a regular rate and rhythm. No murmur, rub or gallop is appreciated. Respiratory: Lungs are clear to auscultation, respirations are non-labored, breath sounds are equal. No wheezes, stridor, rales, or rhonchi. Gastrointestinal: Soft, non-distended, non-tender abdomen without masses or organomegaly noted. There is no rebound or guarding present. No CVA tenderness. Bowel sounds are unremarkable. Musculoskeletal: Normal ROM, no tenderness. Strength 5/5. Sensation intact. Pulses equal bilaterally 2+. Neurological: A&O x 3. CN II-XII intact, There are no obvious motor or sensory deficits. Coordination appears grossly intact. Speech is normal. Skin: Skin is warm and dry and no rashes or lesions are noted. Psychiatric: Cooperative, appropriate mood & affect, normal judgment. (Karan Barrett) Vital Signs 07/09/17 07/09/17 07/09/17 10:40 12:51 14:03 Temperature 98.1 F Pulse Rate 72 74 67 Respiratory 20 20 18 Rate Blood Pressure 136/91 141/66 126/76 O2 Sat by Pulse 99 97 100 Oximetry 07/09/17 16:50 Temperature Pulse Rate 65 Respiratory 18 Rate Blood Pressure 127/60 O2 Sat by Pulse 96 Oximetry EKG Findings - EKG Comments: EKG Findings:: EKG performed at 1235: Shows sinus bradycardia 59 bpm. VT interval 146. QRS 82. QT/QTc 400/396. No acute ST changes. <Karan Barrett - Last Filed: 07/09/17 17:07> Medical Decision Making - Lab Data Result diagrams: 07/09/17 12:40 07/09/17 12:40 <Ramirez Blake - Last Filed: 07/09/17 14:42> - Lab Data Result diagrams: 07/09/17 12:40 07/09/17 12:40 <Karan Barrett - Last Filed: 07/09/17 17:07> - Medical Decision Making The patient was seen and examined. All diagnostics were reviewed. The case is discussed with the PA and I agree with the findings as documented. (Ramirez Blake) Patient reexamined at this time shows no signs of stress currently sandwich. She is feeling better here in the emergency room. She was able to have a few bowel movements. Patient has had no large bloody movement. In the emergency room. Vitals are Patient will be discharged home continued on MiraLAX. Advised to continue oral rehydration return here to the emergency room symptoms increase or further concerns. (Karan Barrett) - Lab Data Lab Results 07/09/17 07/09/17 07/09/17 Range/Units 12:40 12:40 12:40 WBC 17.4 H (3.8-10.6) k/uL RBC 4.96 (3.80-5.40) m/uL Hgb 15.0 (11.4-16.0) gm/dL Hct 46.3 H (34.0-46.0) % MCV 93.3 (80.0-100.0) fL MCH 30.2 (25.0-35.0) pg MCHC 32.4 (31.0-37.0) g/dL RDW 13.0 (11.5-15.5) % Plt Count 267 (150-450) k/uL Neutrophils % 71 % Lymphocytes % 22 % Monocytes % 5 % Eosinophils % 1 % Basophils % 0 % Neutrophils # 12.3 H (1.3-7.7) k/uL Lymphocytes # 3.8 (1.0-4.8) k/uL Monocytes # 0.9 (0-1.0) k/uL Eosinophils # 0.1 (0-0.7) k/uL Basophils # 0.1 (0-0.2) k/uL PT 10.5 (9.0-12.0) sec INR 1.1 (<1.2) APTT 22.4 (22.0-30.0) sec Sodium 141 (137-145) mmol/L Potassium 4.1 (3.5-5.1) mmol/L Chloride 106 (98-107) mmol/L Carbon Dioxide 24 (22-30) mmol/L Anion Gap 11 mmol/L BUN 16 (7-17) mg/dL Creatinine 0.80 (0.52-1.04) mg/dL Est GFR (MDRD) Af Amer >60 (>60 ml/min/1.73 sqM) Est GFR (MDRD) Non-Af >60 (>60 ml/min/1.73 sqM) Glucose 81 (74-99) mg/dL Calcium 11.3 H (8.4-10.2) mg/dL Total Bilirubin 0.4 (0.2-1.3) mg/dL AST 21 (14-36) U/L ALT 27 (9-52) U/L Alkaline Phosphatase 94 (38-126) U/L Troponin I (0.000-0.034) ng/mL Total Protein 7.4 (6.3-8.2) g/dL Albumin 4.1 (3.5-5.0) g/dL Lipase 170 (23-300) U/L Urine Color Urine Appearance (Clear) Urine pH (5.0-8.0) Ur Specific [place] (1.001-1.035) Urine Protein (Negative) Urine Glucose (UA) (Negative) Urine Ketones (Negative) Urine Blood (Negative) Urine Nitrite (Negative) Urine Bilirubin (Negative) Urine Urobilinogen (<2.0) mg/dL Ur Leukocyte Esterase (Negative) Stool Occult Blood (Negative) 07/09/17 07/09/17 07/09/17 Range/Units 12:40 12:40 13:00 WBC (3.8-10.6) k/uL RBC (3.80-5.40) m/uL Hgb (11.4-16.0) gm/dL Hct (34.0-46.0) % MCV (80.0-100.0) fL MCH (25.0-35.0) pg MCHC (31.0-37.0) g/dL RDW (11.5-15.5) % Plt Count (150-450) k/uL Neutrophils % % Lymphocytes % % Monocytes % % Eosinophils % % Basophils % % Neutrophils # (1.3-7.7) k/uL Lymphocytes # (1.0-4.8) k/uL Monocytes # (0-1.0) k/uL Eosinophils # (0-0.7) k/uL Basophils # (0-0.2) k/uL PT (9.0-12.0) sec INR (<1.2) APTT (22.0-30.0) sec Sodium (137-145) mmol/L Potassium (3.5-5.1) mmol/L Chloride (98-107) mmol/L Carbon Dioxide (22-30) mmol/L Anion Gap mmol/L BUN (7-17) mg/dL Creatinine (0.52-1.04) mg/dL Est GFR (MDRD) Af Amer (>60 ml/min/1.73 sqM) Est GFR (MDRD) Non-Af (>60 ml/min/1.73 sqM) Glucose (74-99) mg/dL Calcium (8.4-10.2) mg/dL Total Bilirubin (0.2-1.3) mg/dL AST (14-36) U/L ALT (9-52) U/L Alkaline Phosphatase (38-126) U/L Troponin I <0.012 (0.000-0.034) ng/mL Total Protein (6.3-8.2) g/dL Albumin (3.5-5.0) g/dL Lipase (23-300) U/L Urine Color Yellow Urine Appearance Clear (Clear) Urine pH 6.5 (5.0-8.0) Ur Specific [place] 1.006 (1.001-1.035) Urine Protein Negative (Negative) Urine Glucose (UA) Negative (Negative) Urine Ketones Negative (Negative) Urine Blood Negative (Negative) Urine Nitrite Negative (Negative) Urine Bilirubin Negative (Negative) Urine Urobilinogen <2.0 (<2.0) mg/dL Ur Leukocyte Esterase Negative (Negative) Stool Occult Blood Positive H (Negative) Disposition <Ramirez Blake - Last Filed: 07/09/17 14:42> Time of Disposition: 17:05 <Karan Barrett - Last Filed: 07/09/17 17:07> Clinical Impression: Constipation Disposition: HOME SELF-CARE Condition: Stable Instructions: Constipation (ED) Additional Instructions: Please use medication as discussed. Please follow-up with family doctor in the next 2 days. Please return to emergency room if the symptoms increase or worsen or for any other concerns. Prescriptions: Polyethylene Glycol 3350 [Miralax] 17 gm PO DAILY #10 packet Referrals: Sera Vanegas MD [Primary Care Provider] - 1-2 days
[2017-07-09 12:57] LABS: Appearance,Urine Clear (Clear); Bilirubin,Urine Negative (Negative); Blood,Urine Negative (Negative); Color,Urine Yellow; Glucose,Urine (UA) Negative (Negative); Ketones,Urine Negative (Negative); Leukocyte Esterase,Urine Negative (Negative); Nitrite,Urine Negative (Negative); PH, Urine 6.5 (5.0-8.0); Protein,Urine Negative (Negative); Specific Gravity,Urine 1.006 (1.001-1.035); Urobilinogen,Urine <2.0 mg/dL (<2.0)
[2017-07-09 13:08] LABS: ALT 27 U/L (9-52); AST 21 U/L (14-36); Albumin 4.1 g/dL (3.5-5.0); Alkaline Phosphatase 94 U/L (38-126); Anion Gap 11 mmol/L; Blood Urea Nitrogen 16 mg/dL (7-17); Calcium 11.3 mg/dL (8.4-10.2); Carbon Dioxide 24 mmol/L (22-30); Chloride 106 mmol/L (98-107); Glucose 81 mg/dL (74-99); INR 1.1 (<1.2); Lipase 170 U/L (23-300); Partial Thromboplastin Time 22.4 sec (22.0-30.0); Potassium 4.1 mmol/L (3.5-5.1); Prothrombin Time 10.5 sec (9.0-12.0); Sodium 141 mmol/L (137-145); Total Bilirubin 0.4 mg/dL (0.2-1.3); Total Protein 7.4 g/dL (6.3-8.2)
[2017-07-09 13:12] LABS: Basophils # (A) 0.1 k/uL (0-0.2); Basophils % (A) 0 %; Eosinophils # (A) 0.1 k/uL (0-0.7); Eosinophils % (A) 1 %; HCT 46.3 % (34.0-46.0); Lymphocytes # (A) 3.8 k/uL (1.0-4.8); Lymphocytes % (A) 22 %; MCH 30.2 pg (25.0-35.0); MCHC 32.4 g/dL (31.0-37.0); MCV 93.3 fL (80.0-100.0); Mean Platelet Volume 6.5; Monocytes # (A) 0.9 k/uL (0-1.0); Monocytes % (A) 5 %; Neutrophils # (A) 12.3 k/uL (1.3-7.7); Neutrophils % (A) 71 %; Platelet Count 267 k/uL (150-450); RBC 4.96 m/uL (3.80-5.40); WBC 17.4 k/uL (3.8-10.6)
--- NOTE | 2017-07-09 14:20 | CT ---
EXAMINATION TYPE: CT abdomen pelvis w con DATE OF EXAM: 07/09/2017 COMPARISON: NONE HISTORY: Constipation CT DLP: 1363.9 mGycm Automated exposure control for dose reduction was used. CONTRAST: CT scan of the abdomen pelvis is performed with IV Contrast, patient injected with 100 mL of Omnipaqu e 300. FINDINGS- LUNG BASES-subsegmental linear changes at both lung bases most typical atelectasis small hiatal herni a. LIVER/GB- No gross abnormality is appreciated. PANCREAS- No gross abnormality is seen. SPLEEN- No gross abnormality is seen. ADRENALS- No gross abnormality is seen. KIDNEYS/BLADDER- no hydronephrosis nephrolithiasis or renal mass. BOWEL- no bowel dilatation. Extensive retained fecal debris throughout the colon. No inflammatory ch anges. LYMPH NODES- No greater than 1cm abdominal or pelvic lymph nodes are appreciated. OSSEOUS STRUCTURES-scoliosis with degenerative change of the spine. Right hip arthropathy. Postsurgic al change left hip. OTHER- aorta of normal caliber. Mild atherosclerotic changes. IMPRESSION- 1. Extensive retained fecal debris correlate for constipation. No acute process identified.
[2017-07-09] MEDS ORDERED: DOCUSATE 100 MG CAP PO STA (14:42)
[2017-07-09] MEDS ORDERED: MAGNESIUM CITRATE 296 ML BOTTLE PO ONE (14:42)
[2017-07-09 17:22] VITALS: BP 152/68; PULSE 77; RESP 16; TEMP 97.1
[2017-07-09 17:38] LABS: Glucose,Whole Blood 82 mg/dL (75-99)
== END 2017-07-09 17:26 | disposition home or self-care (01) ==
LOC: EC 10:30
DX: K59.00 Constipation, unspecified (principal); E78.5 Hyperlipidemia, unspecified; K21.9 Gastro-esophageal reflux disease without esophagitis; E11.42 Type 2 diabetes mellitus with diabetic polyneuropathy; J45.909 Unspecified asthma, uncomplicated; M19.90 Unspecified osteoarthritis, unspecified site; M79.7 Fibromyalgia; Z79.51 Long term (current) use of inhaled steroids; Z79.52 Long term (current) use of systemic steroids; Z79.84 Long term (current) use of oral hypoglycemic drugs; Z79.899 Other long term (current) drug therapy; Z88.1 Allergy status to other antibiotic agents; Z88.5 Allergy status to narcotic agent; Z91.09 Other allergy status, other than to drugs and biological substances; Z87.19 Personal history of other diseases of the digestive system; Z87.01 Personal history of pneumonia (recurrent)
CPT/HCPCS: 36415; 93005; 80053; 83690; 84484; 85025; 85610; 85730; 82272; 81003; 74177; 99285; Q9967

== ENCOUNTER → 2017-07-13 | Outpatient (CLI) | payer MEDICARE, BC ==
[2017-07-13 12:12] LABS: Ionized Calcium 5.8 mg/dL (4.5-5.3)
[2017-07-13 12:19] LABS: Calcium 10.6 mg/dL (8.4-10.2)
[2017-07-13 16:19] LABS: Protein, Total 6.9 g/dL (6.2-8.2)
[2017-07-13 17:01] LABS: Parathyroid Hormone Intact 93.9 pg/mL (14.0-72.0)
== END | disposition home or self-care (01) ==
LOC: LABWHC1 11:38
PROVIDERS: ATTEND Internal Medicine Critical Care Medicine
DX: E83.52 Hypercalcemia (principal)
CPT/HCPCS: 36415; 82306; 82310; 82330; 83970; 84100; 84165; 86334

== ENCOUNTER → 2017-07-26 | Outpatient (CLI) | payer MEDICARE, BC ==
--- NOTE | 2017-07-26 11:48 | US ---
EXAMINATION TYPE: US thyroid st tissue head/neck DATE OF EXAM: 07/26/2017 COMPARISON: NONE CLINICAL HISTORY: 9-year-old female E83.52 Hypercalcemia,E21.3 Hyperparathyroidism. Right neck pain/s oreness Technique: Multiple sonographic images of the thyroid gland are obtained. FINDINGS: Right Lobe: 3.7 x 1.4 x 1.2 cm Overall Parenchyma: heterogenous Left Lobe: 3.7 x 1.5 x 1.1 cm Overall Parenchyma: heterogeneous Isthmus Thickness: 0.2 cm NODULES RIGHT: # of nodules measured on right: 1 1. 0.8 X 0.4 x 0.6 cm hypoechoic solid nodule at the lower pole with well-defined margins. This nod ule is wider than tall and shows intranodular vascularity. Prior size: no previous LEFT: # of nodules measured on left: 2 1. 0.5 X 0.4 x 0.4 cm hypoechoic mixed nodule at the upper pole with well-defined margins. This nod ule is wider than tall and shows no intranodular vascularity. Prior size: no previous 2. 0.4 X 0.2 x 0.4 cm hypoechoic solid nodule at the mid pole with well-defined margins. This nodule is wider than tall and shows intranodular vascularity. Prior size: no previous ISTHMUS: # of nodules measured in the isthmus: 0 Bilateral neck scanned, no evidence of lymphadenopathy. Right neck: 2.7 x 1.1 x 1.2cm hypoechoic vascular structure inferior to right thyroid, possible enl arged parathyroid. IMPRESSION: 1. A few scattered nodules, largest is solid in the right lower pole measuring 8 mm. Follow-up is ind icated. 2. A 2.7 x 1.2 cm vascular nodule located outside the thyroid gland just below the right lobe. Given patient's symptoms, a parathyroid adenoma is not excluded at this time.
== END | disposition home or self-care (01) ==
LOC: RADUSWWP 09:53
PROVIDERS: ATTEND Family Medicine
DX: E04.2 Nontoxic multinodular goiter (principal); E21.3 Hyperparathyroidism, unspecified
CPT/HCPCS: 76536

== ENCOUNTER → 2017-08-13 | Outpatient (CLI) | payer MEDICARE, BC ==
--- NOTE | 2017-08-13 15:30 | NM ---
EXAMINATION TYPE: NM parathyroid w/spect DATE OF EXAM: 08/13/2017 COMPARISON: Ultrasound 07/26/2017 HISTORY: Hyperparathyroidism TECHNIQUE: Following administration of 26.1 mCi Tc99m Sestamibi. Anterior projection images of the neck and ches t were obtained 10 minutes and 3 hours post injection. SPECT images of the neck and chest were obtai mirlande and reconstructed in three axes. FINDINGS: Thyroid tracer washout: There is persistent uptake within the right thyroid bed on delayed images. Th ere is washout of thyroid uptake on the delayed images. Parathyroid uptake: There is persistent uptake within the right thyroid bed on delayed images Normal uptake: There is physiological tracer uptake in the myocardium, liver, salivary glands, and th yroid gland. IMPRESSION: Findings are suggestive of a right parathyroid adenoma
== END | disposition home or self-care (01) ==
LOC: RADNMMAIN 11:11
PROVIDERS: ATTEND Surgery
DX: E21.3 Hyperparathyroidism, unspecified (principal)
CPT/HCPCS: 78071; A9500

== ENCOUNTER → 2017-09-10 | Outpatient (CLI) | payer MEDICARE, BC ==
--- NOTE | 2017-09-10 15:16 | BD ---
EXAMINATION TYPE: MG DEXA axial skeleton. DATE OF EXAM: 09/10/2017 COMPARISON: NONE CLINICAL HISTORY: E21.0 Primary Hyperparathyroidism Height: 66 Weight: 205.8 FRAX RISK QUESTIONS: Alcohol (3 or more units per day): no Family History (Parent hip fracture): yes Glucocorticoids (More than 3mos): no (Ex: prednisone, prednisolone, methylprednisolone, dexamethasone, and hydrocortisone). History of Fracture in Adulthood: no Secondary Osteoporosis: 1. Type 1 Diabetes: no 2. Hyperthyroidism: no 3. Menopause before 45: no 4. Malnutrition: no 5. Chronic liver disease: no Rheumatoid Arthritis: no Current Tobacco Use: no RISK FACTORS HISTORY OF: Surgery to Spine/Hip(right/left)/Wrist (right/left): left hip When: Family History of Osteoporosis: no Active: no Diet low in dairy products/other sources of calcium: yes Postmenopausal woman: hysterectomy age 47 Lost more than 2 inches in height since high school: no Frequent falls: no Hyperparathyroidism: yes Adrenal Insufficiency: yes MEDICATIONS: diabetic meds, heart meds, cholesterol meds, allergy meds, vit d, vit c, Additional History: pt has hypercalcemia and hyperparathyrodism EXAM MEASUREMENTS: Bone mineral densitometry was performed using the [employer] System. Bone mineral density as measured about the Lumbar spine is: ----- L1-L4(G/cm2): 1.192 T Score Values are as follows: ----- L2: -1.6 ----- L3: 0.1 ----- L4: 1.5 ----- L1-L4: -0.1 Bone mineral density baseline Bone mineral density about the R hip (g/cm2): 0.846 T Score values are as follows: -----R Neck: -1.4 -----R Total: -1.6 Bone mineral density has: baseline IMPRESSION: Osteopenia of the bilateral femoral as such there is increased fracture risk. NOTE: T-SCORE=SD OF THE YOUNG ADULT MEAN.
--- NOTE | 2017-09-10 15:18 | BD ---
EXAMINATION TYPE: MG DEXA appendicular skeleton. DATE OF EXAM: 09/10/2017 COMPARISON: NONE CLINICAL HISTORY: Hyperparathyroidism Height: 66 Weight: 205.8 FRAX RISK QUESTIONS: Alcohol (3 or more units per day): no Family History (Parent hip fracture): yes Glucocorticoids (More than 3mos): no (Ex: prednisone, prednisolone, methylprednisolone, dexamethasone, and hydrocortisone). History of Fracture in Adulthood: no Secondary Osteoporosis: 1. Type 1 Diabetes: no 2. Hyperthyroidism: no 3. Menopause before 45: no 4. Malnutrition: no 5. Chronic liver disease: no Rheumatoid Arthritis: no Current Tobacco Use: no RISK FACTORS HISTORY OF: Surgery to Spine/Hip(right/left)/Wrist (right/left): left hip When: Family History of Osteoporosis: no Active: no Diet low in dairy products/other sources of calcium: yes Postmenopausal woman: hysterectomy age 47 Lost more than 2 inches in height since high school: no Frequent falls: no Hyperparathyroidism: yes Adrenal Insufficiency: yes MEDICATIONS: diabetic meds, heart meds, cholesterol meds, allergy meds, vit d, vit c, Additional History: pt has hypercalcemia and hyperparathyrodism EXAM MEASUREMENTS: Bone mineral densitometry was performed using the [employer] System. Bone mineral density about the L Wrist (g/cm2): 0.314 T Score values are as follows: -----Dist. R+U: -3.3 -----Prox. R+U: -3.1 -----Radius total: -3.5 Bone mineral density has: BASELINE IMPRESSION: Osteoporosis NOTE: T-SCORE=SD OF THE YOUNG ADULT MEAN.
== END | disposition home or self-care (01) ==
LOC: RADBDWWP 13:04
PROVIDERS: ATTEND Surgery
DX: M85.80 Other specified disorders of bone density and structure, unspecified site (principal); M85.852 Other specified disorders of bone density and structure, left thigh; M85.851 Other specified disorders of bone density and structure, right thigh
CPT/HCPCS: 77080; 77081

== ENCOUNTER → 2017-10-04 | Outpatient (CLI) | payer MEDICARE, BC | END | disposition home or self-care (01) | LOC: LABWHC1 12:27 | PROVIDERS: ATTEND Surgery | DX: E89.2 Postprocedural hypoparathyroidism (principal) | CPT/HCPCS: 36415; 82310 ==

== ENCOUNTER → 2018-01-02 | Outpatient (CLI) | payer MEDICARE, BC ==
[2018-01-02 08:31] LABS: Albumin 3.8 g/dL (3.5-5.0); Calcium 9.3 mg/dL (8.4-10.2); Potassium 4.9 mmol/L (3.5-5.1); Total Bilirubin 0.3 mg/dL (0.2-1.3); Total Protein 6.6 g/dL (6.3-8.2)
[2018-01-02 16:17] LABS: Vitamin D 25 Hydroxy 57.1 ng/mL (30.0-100.0)
[2018-01-02 16:30] LABS: Parathyroid Hormone Intact 45.8 pg/mL (14.0-72.0)
[2018-01-02 19:26] LABS: Hemoglobin A1C 6.1 % (4.0-6.0)
== END | disposition home or self-care (01) ==
LOC: LABWHC1 07:32
PROVIDERS: ATTEND Internal Medicine Endocrinology, Diabetes & Metabolism
DX: E11.65 Type 2 diabetes mellitus with hyperglycemia (principal); E21.0 Primary hyperparathyroidism
CPT/HCPCS: 36415; 80053; 80061; 82043; 82306; 82570; 83036; 83970

== ENCOUNTER → 2018-02-06 | Outpatient (CLI) | payer MEDICARE, BC ==
--- NOTE | 2018-02-06 10:41 | CT ---
EXAMINATION TYPE: CT chest w con DATE OF EXAM: 02/06/2018 COMPARISON: 06/26/2017 HISTORY: Solitary pulmonary nodule CT DLP: 733 mGycm, Automated exposure control for dose reduction was used. CONTRAST: Performed injected with 100 mL of Isovue 300. TECHNIQUE: Axial images were obtained at 5 mm thick sections. Reconstructed images are reviewed on [facility] computer in the coronal plane. FINDINGS: Portion of the thyroid visualized is normal. Thickening adjacent to a right middle lobe pulmonary vessel currently measures 1.2 x 1.1 cm. This is slightly larger than the 1.0 x 1.0 cm previous. A posterior medial left lung base pleural-based nodule measures 0.5 cm and appears less dense than [facility] comparison. Series 4 image 50. There is a 0.5 cm peripheral left lung nodule present previously and appears stable. Series 4 image 40. No enlarged mediastinal or hilar adenopathy is evident. There are scattered shotty lymph nodes in [facility] pretracheal space and aortopulmonic window, and superior mediastinum. No suspicious hilar adenopat hy is evident. The ascending aorta diameter at the level of the main pulmonary artery is 3.0 cm. The main pulmonary artery diameter at the bifurcation is 2.[address] sections are obtained through the upper abdomen. Abdomen is essentially unremarkable. IMPRESSIONS: 1. Slight enlargement of the density adjacent to the right middle lobe pulmonary vessel. 2. Stable left lower lobe peripheral based nodules.
== END | disposition home or self-care (01) ==
LOC: RADCTMAIN 06:55
PROVIDERS: ATTEND Internal Medicine Critical Care Medicine
DX: R91.8 Other nonspecific abnormal finding of lung field (principal); J98.4 Other disorders of lung
CPT/HCPCS: 82565; 84520; 71260; 36415; Q9967

== ENCOUNTER → 2018-04-23 | Outpatient (CLI) | payer MEDICARE, BC ==
--- NOTE | 2018-04-23 15:46 | MR ---
EXAMINATION TYPE: MR brain wo/w con DATE OF EXAM: 04/23/2018 COMPARISON: NONE HISTORY: Mild cognitive impairment with memory loss per order. Additional symptoms of bilateral heari ng loss per patient and bilateral extremity numbness. TECHNIQUE: Multiplanar, multisequence images of the brain and brainstem is performed without and with IV contras t, utilizing 9.5 mL intravenous Gadavist . FINDINGS: Diffusion weighted images demonstrate no evidence of a recent infarct or other diffusion ab normality. There is no worrisome extra-axial fluid collection. Ventricles and sulci are within cora l limits in size for patient's age. There are scattered foci of T2 hyperintensity seen throughout the superficial, deep, and periventricular white matter. Lesions are nonspecific in appearance and distr ibution but most likely on basis of product of chronic small vessel ischemic change in patient of thi s age. At least 40 scattered lesions are present. Midline structures demonstrate normal morphology. The craniocervical junction appears within normal limits. Post contrast images demonstrate no abnormal enhancement. The dural venous sinuses appear pa tent. The visualized sinuses are clear and the globes are intact. No suspicious opacification bilater al mastoid air cells is seen. IMPRESSION: Moderate to severe nonspecific white matter changes most likely on basis of product of ch ronic small vessel ischemic change. No enhancing masses are noted.
== END | disposition home or self-care (01) ==
LOC: RADMRIMAIN 12:03
PROVIDERS: ATTEND Psychiatry & Neurology Neurology
DX: I67.82 Cerebral ischemia (principal); R90.89 Other abnormal findings on diagnostic imaging of central nervous system; R41.3 Other amnesia
CPT/HCPCS: 82565; 70553; 36415; A9585

== ENCOUNTER → 2018-07-04 | Outpatient (CLI) | payer MEDICARE, BC ==
[2018-07-04 17:07] LABS: Albumin/Globulin Ratio 1.67 (1.20-2.10); Anion Gap 7.7 mmol/L (4.00-12.00); Calcium 8.9 mg/dL (8.7-10.3); Carbon Dioxide 25.3 mmol/L (21.6-31.8); Globulin 2.4 g/dL (1.6-3.3); Potassium 4.4 mmol/L (3.5-5.5); Total Bilirubin 0.3 mg/dL (0.2-1.2); Total Protein 6.4 g/dL (6.2-8.2)
[2018-07-04 17:21] LABS: Hemoglobin A1C 6.5 % (4.0-6.0)
== END | disposition home or self-care (01) ==
LOC: LABWHC1 10:20
PROVIDERS: ATTEND Internal Medicine Endocrinology, Diabetes & Metabolism
DX: E11.9 Type 2 diabetes mellitus without complications (principal)
CPT/HCPCS: 36415; 80053; 82043; 82570; 82607; 83036; 84443

== ENCOUNTER 2018-08-16 06:49 | Day surgery (SDC) | payer MEDICARE, BC ==
[2018-08-14 10:53] VITALS: BMI 32.4
[~2018-08-16 06:49] MED LIST: LACTATED RINGERS 1,000 ML IV SCH; LIDOCAINE 1% 20 ML VIAL (10MG/ML) FOR IV START INTRADERMA PRN
[2018-08-16 07:40] VITALS: TEMP 98
[2018-08-16 07:42] LABS: Glucose,Whole Blood 96 mg/dL (75-99)
[2018-08-16] MEDS ORDERED: PROPOFOL 10 MG/ML 20 ML VIAL IV ONE (08:00)
[2018-08-16] MEDS ORDERED: LIDOCAINE 1% INJ 10MG/ML (20 ML MDV) ONE (08:00)
--- NOTE | 2018-08-16 08:23 | P.PCN ---
Date of Procedure: 08/16/18 Procedure(s) Performed: BRIEF HISTORY: Patient is a 73-year-old pleasant female, scheduled for an elective colonoscopy as a part of value should of prior history of colon polyps. Last upper endoscopy was 5 years ago and was noted to have an adenoma. PROCEDURE PERFORMED: Colonoscopy. PREOPERATIVE DIAGNOSIS: History of colon polyps. IV sedation per Anesthesia. PROCEDURE: After informed consent was obtained, the patient, was brought into the endoscopy unit. IV sedation was administered by Anesthesia under continuous monitoring. Digital rectal examination was normal. Initially the Olympus CF-160 flexible video colonoscope was then inserted in the rectum, gradually advanced into the cecum without any difficulty. Careful examination was performed as the scope was gradually being withdrawn. Ileocecal valve and the appendiceal orifice were visualized and appeared normal. Prep was excellent. Mucosa of the cecum, ascending colon, transverse colon, descending colon, sigmoid colon, and rectum appeared normal. Retroflexion was performed in the rectum and no lesions were seen. The patient tolerated the procedure well. IMPRESSION: Normal-appearing colon from rectum to cecum no evidence of colorectal neoplasia. RECOMMENDATIONS: Findings of this examination were discussed with the patient a s well as her family. She was advised to have a repeat surveillance colonoscopy in 5 years from now.
[2018-08-16 09:00] VITALS: BP 111/69; PULSE 67; RESP 18
== END 2018-08-16 09:12 | disposition home or self-care (01) ==
LOC: ORWHC2ENDO 06:49
PROVIDERS: ATTEND Internal Medicine Gastroenterology
DX: Z12.11 Encounter for screening for malignant neoplasm of colon (principal); I10 Essential (primary) hypertension; E78.5 Hyperlipidemia, unspecified; J45.909 Unspecified asthma, uncomplicated; K21.9 Gastro-esophageal reflux disease without esophagitis; E89.0 Postprocedural hypothyroidism; Z86.010 Personal history of colon polyps; Z88.0 Allergy status to penicillin; Z79.82 Long term (current) use of aspirin; Z79.899 Other long term (current) drug therapy; Z88.2 Allergy status to sulfonamides; Z79.84 Long term (current) use of oral hypoglycemic drugs; Z79.51 Long term (current) use of inhaled steroids; Z96.642 Presence of left artificial hip joint; Z88.1 Allergy status to other antibiotic agents; Z91.048 Other nonmedicinal substance allergy status
CPT/HCPCS: J2001; J2704; G0105; 45378

== ENCOUNTER 2018-09-13 13:28 | Emergency (ER) | payer MEDICARE, BC ==
[2018-09-13] MEDS ORDERED: IBUPROFEN 600 MG TAB PO STA (14:12)
--- NOTE | 2018-09-13 14:14 | ED ---
Extremity Problem HPI - General Chief complaint: Extremity Problem,Nontraumatic Stated complaint: Leg Pain Time Seen by Provider: 09/13/18 13:52 Source: patient, RN notes reviewed Mode of arrival: ambulatory Limitations: no limitations - History of Present Illness Initial comments: This is a 73-year-old female who presents with complaints of left leg pain. She states the pain behind her knee on the left side is throbbing she states the middle Pain she is experiencing is achy in nature 5/10 severity. She denies any injury denies any source of breath chest pain she denies any prior history of DVT. He does admit she's been sitting a lot the past week reading. She did call her doctor and was referred here for evaluation she has of a history of s ciatica but this feels different. MD Complaint: extremity pain - Related Data Home Medications Medication Instructions Recorded Confirmed Cholecalciferol [Vitamin D3] 5,000 unit PO DAILY 01/25/15 09/11/18 Glucosam/Jaren-Msm1/C/Robert/Bosw 1 tab PO DAILY 01/25/15 09/11/18 [Glucosamine-Chondroitin Tablet] Ranitidine HCl 150 mg PO HS 01/25/15 09/11/18 Tolterodine [Detrol] 2 mg PO BID 01/25/15 09/11/18 Vitamin B Complex 1 cap PO DAILY 01/25/15 09/11/18 metFORMIN HCL [Glucophage] 500 mg PO DAILY 01/25/15 09/11/18 Triamcinolone Acetonide [Nasacort] 2 spray EA NOSTRIL DAILY 02/01/15 09/11/18 Aspirin [Adult Low Dose Aspirin EC] 81 mg PO DAILY 01/11/16 09/11/18 Cetirizine HCl 10 mg PO DAILY 01/11/16 09/11/18 Albuterol Sulfate [Proair Hfa] 2 puff INHALATION RT-Q6H PRN 06/26/17 09/11/18 Ascorbic Acid [Vitamin C] 500 mg PO DAILY 06/26/17 09/11/18 Atenolol 25 mg PO DAILY 06/26/17 09/11/18 Atorvastatin Calcium [Lipitor] 10 mg PO HS 06/26/17 09/11/18 Esomeprazole Magnesium [NexIUM] 20 mg PO DAILY 06/26/17 09/11/18 Estrogens, Conjugated Cream 1 applicator VAGINAL Q72H 06/26/17 09/11/18 [Premarin Cream] Ibuprofen [Advil] 200 mg PO Q8HR PRN 06/26/17 09/11/18 Montelukast Sodium [Singulair] 10 mg PO HS 06/26/17 09/11/18 Fluticasone/Salmeterol [Advair 1 inhalation PO RT-BID 07/09/17 09/11/18 500-50 Diskus] Calcium Carbonate [Calcium] 600 mg PO DAILY 08/14/18 09/11/18 Docusate [Colace] 100 mg PO DAILY 08/14/18 09/11/18 Olopatadine HCl [Patanol] 5 ml OP DAILY PRN 08/14/18 09/11/18 Polyethylene Glycol 3350 [Miralax] 17 gm PO DAILY PRN 08/14/18 09/11/18 Allergies Allergy/AdvReac Type Severity Reaction Status Date / Time adhesive Allergy blisters Verified 09/13/18 13:39 amoxicillin Allergy Rash/Hives Verified 09/13/18 13:39 Sulfa (Sulfonamide Allergy Unknown Verified 09/13/18 13:39 Antibiotics) sulfamethoxazole Allergy Rash/Hives Verified 09/13/18 13:39 [From Bactrim] trimethoprim [From Bactrim] Allergy Rash/Hives Verified 09/13/18 13:39 gabapentin AdvReac dizzy Verified 09/13/18 13:39 lisinopril AdvReac Cough Verified 09/13/18 13:39 Review of Systems ROS Statement: Those systems with pertinent positive or pertinent negative responses have been documented in the HPI. ROS Other: All systems not noted in ROS Statement are negative. Past Medical History Past Medical History: Asthma, Diabetes Mellitus, Fibromyalgia, GERD/Reflux, Hyperlipidemia, Osteoarthritis (OA), Pneumonia, Skin Disorder Additional Past Medical History / Comment(s): History of bronchial asthma, chronic ALLERGIC rhinitis, fibromyalgia, acid reflux, hyperlipidemia, osteoarthritis, superficial thrombophlebitis, spinal stenosis, scoliosis of the spine, hiatal hernia, degenerative disc disease, peripheral neuropathy History of Any Multi-Drug Resistant Organisms: None Reported Past Surgical History: Breast Surgery, Hysterectomy, Joint Replacement, Orthop edic Surgery, Tonsillectomy Additional Past Surgical History / Comment(s): breast biopsy-neg, neuroma brennen feet removed,discectomy, rt ankle surgery, sinus surgery, brennen cataracts, left hip replacement, partial hysterectomy-still hs ovaries, bunionectomy, adnoma removed from parathyroid Past Anesthesia/Blood Transfusion Reactions: No Reported Reaction Additional Past Anesthesia/Blood Transfusion Reaction / Comment(s): "doesn't take much", Past Psychological History: Anxiety Smoking Status: Never smoker Past Alcohol Use History: Occasional Past Drug Use History: None Reported - Past Family History Father Family Medical History: Dementia, Diabetes Mellitus, Hypertension Additional Family Medical History / Comment(s): enlarged heart, obesity Mother Family Medical History: Cancer General Exam - General Exam Comments Initial Comments: This is a well-developed well-nourished awake alert oriented 3 female Limitations: no limitations General appearance: alert, in no apparent distress Head exam: Present: atraumatic, normocephalic, normal inspection Eye exam: Present: normal appearance, PERRL, EOMI. Absent: scleral icterus, conjunctival injection, periorbital swelling ENT exam: Present: normal exam, mucous membranes moist Neck exam: Present: normal inspection. Absent: tenderness, meningismus, lymphadenopathy Respiratory exam: Present: normal lung sounds bilaterally. Absent: respiratory distress, wheezes, rales, rhonchi, stridor Cardiovascular Exam: Present: regular rate, normal rhythm, normal heart sounds. Absent: systolic murmur, diastolic murmur, rubs, gallop, clicks GI/Abdominal exam: Absent: distended, tenderness, guarding, rebound, rigid Extremities exam: Present: normal inspection, full ROM, tenderness (Left calf tenderness palpation also tenderness palpation of the medial left anterior thigh no palpable cords however. There is tenderness palpation over the popliteal fossa.), normal capillary refill, calf tenderness. Absent: pedal edema, joint swelling Back exam: Present: normal inspection Neurological exam: Present: alert, oriented X3, CN II-XII intact Psychiatric exam: Present: normal affect, normal mood Skin exam: Present: warm, dry, intact, normal color. Absent: rash Course Vital Signs 09/13/18 13:36 Temperature 98.1 F Pulse Rate 80 Respiratory 18 Rate Blood Pressure 118/68 O2 Sat by Pulse 98 Oximetry Medical Decision Making - Medical Decision Making I did discuss the findings with the patient the exam is negative for DVT. She does have a history of sciatica as well as peripheral neuropathy and fibromyalgia. She does have pain medication at home they have recommended she take this pain medication if needed also warm compresses the affected areas and additionally follow-up with her doctor and return if any problems. She is in agreement with this. - Radiology Data Radiology results: report reviewed (I did review the imaging and report no acute findings no evidence of DVT.), image reviewed Disposition Clinical Impression: Sciatica, Leg pain, left, Myalgia Disposition: HOME SELF-CARE Condition: Good Instructions (If sedation given, give patient instructions): Musculoskeletal Pain (ED), Sciatica (ED), Lower Back Exercises (ED) Is patient prescribed a controlled substance at d/c from ED?: No Referrals: Sera Vanegas MD [Primary Care Provider] - 1-2 days
--- NOTE | 2018-09-13 15:08 | US ---
EXAMINATION TYPE: US venous doppler duplex LE LT DATE OF EXAM: 09/13/2018 3:00 PM COMPARISON: NONE CLINICAL HISTORY: Pain. Left leg pain in calf that extends up into thigh, no swelling, no injury SIDE PERFORMED: Left TECHNIQUE: The lower extremity deep venous system is examined utilizing real time linear array sonog shade with graded compression, doppler sonography and color-flow sonography. VESSELS IMAGED: External Iliac Vein (EIV) Common Femoral Vein Deep Femoral Vein Greater Saphenous Vein * Femoral Vein Popliteal Vein Small Saphenous Vein * Proximal Calf Veins (* superficial vessels) Grayscale, color doppler, spectral doppler imaging performed of the deep veins of the left lower extr emity. There is normal flow, compressibility, vascular waveforms. Left Leg: Appears negative for DVT IMPRESSION: No sonographic evidence of deep venous thrombosis within the left lower extremity.
[2018-09-13 15:44] VITALS: BP 127/64; PULSE 74; RESP 20; TEMP 97.6
== END 2018-09-13 15:40 | disposition home or self-care (01) ==
LOC: EC 13:28
DX: M54.32 Sciatica, left side (principal); M79.605 Pain in left leg; M79.10 Myalgia, unspecified site; J45.909 Unspecified asthma, uncomplicated; E11.9 Type 2 diabetes mellitus without complications; E78.5 Hyperlipidemia, unspecified; K21.9 Gastro-esophageal reflux disease without esophagitis; M19.90 Unspecified osteoarthritis, unspecified site; Z79.82 Long term (current) use of aspirin; Z79.84 Long term (current) use of oral hypoglycemic drugs; Z79.899 Other long term (current) drug therapy; Z91.048 Other nonmedicinal substance allergy status; Z88.0 Allergy status to penicillin; Z88.2 Allergy status to sulfonamides; Z88.1 Allergy status to other antibiotic agents; Z88.8 Allergy status to other drugs, medicaments and biological substances; Z96.642 Presence of left artificial hip joint
CPT/HCPCS: 99283

== ENCOUNTER → 2018-10-31 | Outpatient (CLI) | payer MEDICARE, BC ==
[2018-10-31 07:46] LABS: Basophils # (A) 0.1 k/uL (0-0.2); Basophils % (A) 1 %; Eosinophils # (A) 0.3 k/uL (0-0.7); Eosinophils % (A) 4 %; HCT 45.1 % (34.0-46.0); HGB 14.1 gm/dL (11.4-16.0); Lymphocytes # (A) 1.8 k/uL (1.0-4.8); Lymphocytes % (A) 22 %; MCH 28.6 pg (25.0-35.0); MCHC 31.2 g/dL (31.0-37.0); MCV 91.7 fL (80.0-100.0); Mean Platelet Volume 6.9; Monocytes # (A) 0.5 k/uL (0-1.0); Monocytes % (A) 6 %; Neutrophils # (A) 5.5 k/uL (1.3-7.7); Neutrophils % (A) 67 %; Platelet Count 247 k/uL (150-450); RBC 4.92 m/uL (3.80-5.40); RDW 14.4 % (11.5-15.5); WBC 8.2 k/uL (3.8-10.6)
[2018-10-31 16:34] LABS: Albumin 4.1 g/dL (3.80-4.90); Albumin/Globulin Ratio 1.78 (1.60-3.17); Calcium 9.4 mg/dL (8.7-10.3); Globulin 2.3 g/dL (1.6-3.3); Magnesium 1.9 mg/dL (1.5-2.4); Potassium 4.9 mmol/L (3.5-5.5); Total Bilirubin 0.5 mg/dL (0.3-1.2); Total Protein 6.4 g/dL (6.2-8.2)
[2018-10-31 18:21] LABS: Hemoglobin A1C 6.6 % (4.0-6.0)
== END | disposition home or self-care (01) ==
LOC: LABWHC1 07:17
PROVIDERS: ATTEND Internal Medicine Endocrinology, Diabetes & Metabolism
DX: E78.5 Hyperlipidemia, unspecified (principal); E11.9 Type 2 diabetes mellitus without complications; K21.9 Gastro-esophageal reflux disease without esophagitis; E21.0 Primary hyperparathyroidism; E04.2 Nontoxic multinodular goiter; L03.811 Cellulitis of head [any part, except face]
CPT/HCPCS: 36415; 80053; 80061; 82043; 82570; 83036; 83735; 84443; 85025

== ENCOUNTER → 2019-03-12 | Outpatient (CLI) | payer MEDICARE, BC ==
[2019-03-12 16:51] LABS: Albumin 4.2 g/dL (3.80-4.90); Albumin/Globulin Ratio 1.75 (1.60-3.17); Anion Gap 10.5 mmol/L (4.00-12.00); BUN/Creat Ratio 16.67 Ratio (12.00-20.00); Calcium 9.5 mg/dL (8.7-10.3); Carbon Dioxide 25.5 mmol/L (21.6-31.8); Chol/HDL Ratio 2.22; Globulin 2.4 g/dL (1.6-3.3); LDL Cholesterol,Calculated 58.8 mg/dL (0.0-131.0); Potassium 4.6 mmol/L (3.5-5.5); Total Bilirubin 0.5 mg/dL (0.2-1.2); Total Protein 6.6 g/dL (6.2-8.2); VLDL Calculation 13.2 mg/dL (5.00-40.00)
== END | disposition home or self-care (01) ==
LOC: LABWHC1 08:42
PROVIDERS: ATTEND Internal Medicine Endocrinology, Diabetes & Metabolism
DX: E11.9 Type 2 diabetes mellitus without complications (principal); Z86.39 Personal history of other endocrine, nutritional and metabolic disease
CPT/HCPCS: 36415; 80053; 80061; 82043; 82570; 83970; 84443

== ENCOUNTER → 2019-05-14 | Outpatient (CLI) | payer MEDICARE, BC | END | disposition home or self-care (01) | LOC: LABWHC1 14:30 | PROVIDERS: ATTEND Internal Medicine Critical Care Medicine | DX: J45.40 Moderate persistent asthma, uncomplicated (principal) | CPT/HCPCS: 36415; 82785 ==

== ENCOUNTER → 2019-12-01 | Outpatient (CLI) | payer MEDICARE, BC ==
--- NOTE | 2019-12-01 15:29 | US ---
EXAMINATION TYPE: US venous doppler duplex LE LT DATE OF EXAM: 12/01/2019 3:16 PM COMPARISON: 09/13/2018 CLINICAL HISTORY: 74-year-old female R22.42 SWELLING OF LT LOWER LIMB. SIDE PERFORMED: Left TECHNIQUE: The lower extremity deep venous system is examined utilizing real time linear array sonog shade with graded compression, doppler sonography and color-flow sonography. FINDINGS: VESSELS IMAGED: External Iliac Vein (EIV) Common Femoral Vein Deep Femoral Vein Greater Saphenous Vein * Femoral Vein Popliteal Vein Small Saphenous Vein * Proximal Calf Veins (* superficial vessels) Left Leg: Negative for DVT [employer] notes: In the patient's calf over redness and area of pain there are thrombosed varicosit ies. IMPRESSION: 1. No evidence for DVT within the left lower extremity imaged from the groin to the upper calf. 2. However, the exam is positive for SVT of varicosities in the location of patient's redness and of pain along the calf.
== END | disposition home or self-care (01) ==
LOC: RADUSWWP 14:55
PROVIDERS: ATTEND Family Medicine
DX: R22.42 Localized swelling, mass and lump, left lower limb (principal)

== ENCOUNTER → 2020-01-15 | Outpatient (CLI) | payer MEDICARE, BC ==
[2020-01-15 11:40] LABS: Albumin 3.9 g/dL (3.80-4.90); Albumin/Globulin Ratio 1.44 (1.60-3.17); Anion Gap 7.7 mmol/L (4.00-12.00); BUN/Creat Ratio 15.56 Ratio (12.00-20.00); Calcium 9.2 mg/dL (8.7-10.3); Carbon Dioxide 26.3 mmol/L (21.6-31.8); Chol/HDL Ratio 2.56; Globulin 2.7 g/dL (1.6-3.3); LDL Cholesterol,Calculated 100.4 mg/dL (0.0-131.0); Non-African American GFR(CKD) 63.9 (60.0-200.0); Potassium 4.3 mmol/L (3.5-5.5); Total Bilirubin 0.4 mg/dL (0.2-1.2); Total Protein 6.6 g/dL (6.2-8.2); VLDL Calculation 10.6 mg/dL (5.00-40.00)
[2020-01-15 13:32] LABS: Hemoglobin A1C 6.3 % (4.0-6.0)
[2020-01-15 18:01] LABS: Microalbumin Creatinine Ratio <30 mg/g Creat (0-30); Urine Creatinine 63.6 mg/dL
== END | disposition home or self-care (01) ==
LOC: LABWHC1 07:03
PROVIDERS: ATTEND Internal Medicine Endocrinology, Diabetes & Metabolism
DX: E11.65 Type 2 diabetes mellitus with hyperglycemia (principal)
CPT/HCPCS: 36415; 80053; 80061; 82043; 82570; 83036; 84443

== ENCOUNTER → 2020-10-11 | Outpatient (CLI) | payer MEDICARE, BC | END | disposition home or self-care (01) | LOC: LABWHC1 11:58 | PROVIDERS: ATTEND Internal Medicine Critical Care Medicine | DX: J45.40 Moderate persistent asthma, uncomplicated (principal) | CPT/HCPCS: 36415; 86235 ==

== ENCOUNTER → 2021-01-12 | Outpatient (CLI) | payer MEDICARE, BC ==
[2021-01-12 08:57] LABS: Basophils # (A) 0.1 k/uL (0-0.2); Basophils % (A) 1 %; Eosinophils # (A) 0.2 k/uL (0-0.7); Eosinophils % (A) 3 %; HCT 49.3 % (34.0-46.0); HGB 16.2 gm/dL (11.4-16.0); Lymphocytes # (A) 2.5 k/uL (1.0-4.8); Lymphocytes % (A) 29 %; MCH 32.2 pg (25.0-35.0); MCHC 32.9 g/dL (31.0-37.0); MCV 97.8 fL (80.0-100.0); Monocytes # (A) 0.5 k/uL (0-1.0); Monocytes % (A) 6 %; Neutrophils # (A) 5.2 k/uL (1.3-7.7); Neutrophils % (A) 61 %; Platelet Count 221 k/uL (150-450); RBC 5.04 m/uL (3.80-5.40); RDW 12.8 % (11.5-15.5); WBC 8.7 k/uL (3.8-10.6)
[2021-01-12 08:59] LABS: Potassium 4.4 mmol/L (3.5-5.1)
== END | disposition home or self-care (01) ==
LOC: LABPAT 08:17
PROVIDERS: ATTEND Surgery
DX: Z01.812 Encounter for preprocedural laboratory examination (principal); I87.2 Venous insufficiency (chronic) (peripheral)
CPT/HCPCS: 36415; 80051; 82565; 84520; 85025

== ENCOUNTER 2021-01-21 06:30 | Day surgery (SDC) | payer MEDICARE, BC ==
[2021-01-14 13:32] VITALS: BMI 27.9
[~2021-01-21 06:30] MED LIST changes: -LACTATED RINGERS 1,000 ML IV SCH; -LIDOCAINE 1% 20 ML VIAL (10MG/ML) FOR IV START INTRADERMA PRN; +SODIUM CHLORIDE 0.9% 1,000 ML IV SCH
[2021-01-21 06:57] LABS: Glucose,Whole Blood 90 mg/dL (75-99)
[2021-01-21 07:03] VITALS: RESP 18; TEMP 98.1
[2021-01-21] MEDS ORDERED: fentaNYL (PF) 50 MCG/ML 2 ML AMP ONE (07:20)
[2021-01-21] MEDS ORDERED: LIDOCAINE 1% INJ 10MG/ML (20 ML MDV) ONE (07:20)
[2021-01-21] MEDS ORDERED: LIDOCAINE 1% INJ 10MG/ML (20 ML MDV) SQ ONE (07:30)
[2021-01-21] MEDS ORDERED: fentaNYL (PF) 50 MCG/ML 2 ML AMP IV ONE (07:30)
[2021-01-21] MEDS ORDERED: MIDAZOLAM 2 MG/2 ML VIAL IV ONE (07:30)
[2021-01-21] MEDS ORDERED: HEPARIN SODIUM 1,000 UN/ML (10ML VL) ONE (07:35)
[2021-01-21] MEDS ORDERED: IOPAMIDOL-370 100ML BTL INJ ONE (08:10)
--- NOTE | 2021-01-21 08:32 | P.OP ---
Date of Procedure: 01/21/21 Preoperative Diagnosis: Chronic venous insufficiency, possible May Thurner Postoperative Diagnosis: Chronic venous insufficiency without evidence of May Thurner Procedure(s) Performed: #1 ultrasound-guided left popliteal vein access #2 selective left IVC, iliofemoral venogram #3 intravascular ultrasound of the left femoral, external iliac, common iliac veins and inferior vena cava Anesthesia: local, other (Conscious sedation 15 minutes) Vice President Industrial Relations #1: Fercho Morse Estimated Blood Loss (ml): 5 Pathology: none sent Condition: stable Indications for Procedure: 75-year-old female with history of left lower extremity swelling with recent lower extremity venous duplex demonstrating 3.5 second reflux in the left common femoral vein demonstrated possible may Thurner. No evidence of superficial venous reflux noted and therefore she was recommended to undergo intravascular ultrasound to determine if there is any stenosis in the common iliac vein. She presents today for such procedure. Description of Procedure: After written and informed consent was obtained to the patient and all risks benefits and complications were described the patient is brought to the [facility] Docking [facility] and laid in a prone position. The area of the left leg was prepped and draped in usual sterile fashion. Utilizing ultrasound the left popliteal vein was located and shown to be patent without any thrombus and compressible. Utilizing a multipurpose needle the vein was accessed and guidewire was placed followed by an 8-[place] sheath. Venogram was then obtained of the femoral and iliac veins including the inferior vena cava demonstrating no evidence of severe stenosis. Flow was slowed slightly at the common iliac vein but otherwise no other flow disturbances.. Glidewire was then placed into the inferior vena cava followed by intravascular ultrasound. The IVC, common iliac and external iliac veins were visualized and recorded. Common iliac vein measured 175 mm with compression noted at 1. down to 89 mm with 47% stenosis. The external iliac vein reference measured 127 mm with compressive area measuring 94 mm for stenosis measuring 26%. There is no evidence of stenosis in the common femoral vein. At that point no stent or balloon venoplasty was determined and therefore guidewires and sheaths were removed and pressure was placed for hemostasis. Once hemostatic the area was cleansed and dressings were placed. Patient tolerated procedure well was sent to PACU for recovery. Plan - Discharge Summary Discharge Rx Participant: No New Discharge Prescriptions: No Action Cholecalciferol [Vitamin D3 (25 Mcg = 1000 Iu)] 5,000 unit PO DAILY Tolterodine [Detrol] 2 mg PO DAILY Vitamin B Complex 1 cap PO DAILY Glucosam/Jaren-Msm1/C/Robert/Bosw [Glucosamine-Chondroitin Tablet] 1 tab PO DAILY Triamcinolone Acetonide [Nasacort] 2 spray EA NOSTRIL DAILY Aspirin [Adult Low Dose Aspirin EC] 81 mg PO DAILY Montelukast Sodium [Singulair] 10 mg PO HS atenoloL 25 mg PO DAILY Albuterol Sulfate [Proair Hfa] 2 puff INHALATION Q6H PRN PRN Reason: Shortness Of Breath polyethylene glycoL 3350 [Miralax] 17 gm PO DAILY Olopatadine HCl [Patanol] 1 drop BOTH EYES BID PRN PRN Reason: Allergic Reaction Omalizumab [Xolair] 300 mg SQ Q30D Acetaminophen [Tylenol] 500 mg PO Q4-6H PRN PRN Reason: Pain Pravastatin Sodium [Pravachol] 20 mg PO HS Dapagliflozin Propanediol [Farxiga] 5 mg PO DAILY Clindamycin (Unknown Dose) 2 tab PO ONCE PRN PRN Reason: Prior to Dental Procedures Famotidine/Ca Carb/Mag Hydrox [Pepcid Complete Tablet Chew] 1 each PO HS Levocetirizine Dihydrochloride [Xyzal] 5 mg PO DAILY Fluticasone Propion/Salmeterol [Wixela 500-50 Inhub] 1 inhalation PO BID Calcium Carbonate/Vitamin D3 [Calcium 500 mg-Vit D3 5 mcg (200 Unit)] 1 each PO DAILY Discharge Medication List Cholecalciferol [Vitamin D3 (25 Mcg = 1000 Iu)] 5,000 unit PO DAILY 01/25/15 [History] Glucosam/Jaren-Msm1/C/Robert/Bosw [Glucosamine-Chondroitin Tablet] 1 tab PO DAILY 01/25/15 [History] Tolterodine [Detrol] 2 mg PO DAILY 01/25/15 [History] Vitamin B Complex 1 cap PO DAILY 01/25/15 [History] Triamcinolone Acetonide [Nasacort] 2 spray EA NOSTRIL DAILY 02/01/15 [History] Aspirin [Adult Low Dose Aspirin EC] 81 mg PO DAILY 01/11/16 [History] Albuterol Sulfate [Proair Hfa] 2 puff INHALATION Q6H PRN 06/26/17 [History] Montelukast Sodium [Singulair] 10 mg PO HS 06/26/17 [History] atenoloL 25 mg PO DAILY 06/26/17 [History] Olopatadine HCl [Patanol] 1 drop BOTH EYES BID PRN 08/14/18 [History] polyethylene glycoL 3350 [Miralax] 17 gm PO DAILY 08/14/18 [History] Acetaminophen [Tylenol] 500 mg PO Q4-6H PRN 01/14/21 [History] Calcium Carbonate/Vitamin D3 [Calcium 500 mg-Vit D3 5 mcg (200 Unit)] 1 each PO DAILY 01/14/21 [History] Clindamycin (Unknown Dose) 2 tab PO ONCE PRN 01/14/21 [History] Dapagliflozin Propanediol [Farxiga] 5 mg PO DAILY 01/14/21 [History] Famotidine/Ca Carb/Mag Hydrox [Pepcid Complete Tablet Chew] 1 each PO HS [History] Fluticasone Propion/Salmeterol [Wixela 500-50 Inhub] 1 inhalation PO BID 01/14/21 [History] Levocetirizine Dihydrochloride [Xyzal] 5 mg PO DAILY 01/14/21 [History] Omalizumab [Xolair] 300 mg SQ Q30D 01/14/21 [History] Pravastatin Sodium [Pravachol] 20 mg PO HS 01/14/21 [History] Follow up Appointment(s)/Referral(s): Fercho Morse DO [STAFF PHYSICIAN] - 1 Week Patient Instructions/Handouts: *Surgery [facility] - After Heart Catheterization - Coke Worker 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 *ANY SIGNS OF BLEEDING (HARDNESS, SWELLING, OR EXCESSIVE BRUISING) HOLD DIRECT PRESSURE ON YOUR PUNCTURE SITE AND COME TO THE NEAREST EMERGENCY ROOM TO GET YOUR PUNCTURE SITE LOOKED AT - DO NOT DRIVE YOURSELF! EITHER CALL EMS OR HAVE SOMEONE DRIVE YOU!
--- NOTE | 2021-01-21 08:39 | IR ---
EXAMINATION TYPE: IR venogram lower ext LT DATE OF EXAM: 01/21/2021 COMPARISON: NONE HISTORY: Fluoroscopy time. Fluoroscopy was provided to the referring clinician.
[2021-01-21 10:06] VITALS: BP 110/62; PULSE 74
== END 2021-01-21 10:25 | disposition home or self-care (01) ==
LOC: CATHCVL 06:30
PROVIDERS: ATTEND Surgery
DX: I87.2 Venous insufficiency (chronic) (peripheral) (principal); I83.893 Varicose veins of bilateral lower extremities with other complications; Z79.84 Long term (current) use of oral hypoglycemic drugs; Z79.82 Long term (current) use of aspirin; Z79.899 Other long term (current) drug therapy
CPT/HCPCS: 36005; 37252; 37253; 75820; C1894; C1769 ×3; C1753; J2250; J2001; J3010; J1644; Q9967

== ENCOUNTER → 2021-03-02 | Outpatient (CLI) | payer MEDICARE, BC ==
[2021-03-03 05:50] LABS: African American GFR (CKD) 104.1 (60.0-200.0); Albumin 4.2 g/dL (3.8-4.9); Albumin/Globulin Ratio 1.68 (1.60-3.17); Anion Gap 11.8 mmol/L (4.00-12.00); BUN/Creat Ratio 24.17 Ratio (12.00-20.00); Blood Urea Nitrogen 14.5 mg/dL (9.0-27.0); Calcium 9.3 mg/dL (8.7-10.3); Carbon Dioxide 23.8 mmol/L (21.6-31.8); Globulin 2.5 g/dL (1.6-3.3); Non-African American GFR(CKD) 89.8 (60.0-200.0); Potassium 4.2 mmol/L (3.5-5.5); Total Bilirubin 0.5 mg/dL (0.30-1.20); Total Protein 6.7 g/dL (6.2-8.2)
[2021-03-04 03:14] LABS: Microalbumin Creatinine Ratio <30 mg/g Creat (0-30); Urine Creatinine 73.7 mg/dL (28.0-217.0)
== END | disposition home or self-care (01) ==
LOC: LABWHC1 09:03
PROVIDERS: ATTEND Internal Medicine Endocrinology, Diabetes & Metabolism
DX: E11.9 Type 2 diabetes mellitus without complications (principal)
CPT/HCPCS: 36415; 80053; 82043; 82570; 83036; 84443

== ENCOUNTER → 2021-03-03 | Outpatient (CLI) | payer MEDICARE, BC | END | disposition home or self-care (01) | LOC: LABWHC1 07:52 | PROVIDERS: ATTEND Internal Medicine Endocrinology, Diabetes & Metabolism | DX: E11.9 Type 2 diabetes mellitus without complications (principal) | CPT/HCPCS: 36415; 80061 ==

== ENCOUNTER 2021-05-14 13:34 | Emergency (ER) | payer BC, MEDICARE, OTHER ==
[2021-05-14] MEDS ORDERED: HYDROmorphone 0.5 MG/0.5 ML SYRINGE IVP STA ×2 (13:49→17:34)
[2021-05-14 13:56] VITALS: RESP 20
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
[2021-05-14 14:37] LABS: Basophils # (A) 0.1 k/uL (0-0.2); Basophils % (A) 1 %; Eosinophils # (A) 0.2 k/uL (0-0.7); Eosinophils % (A) 1 %; HCT 51.9 % (34.0-46.0); HGB 17.1 gm/dL (11.4-16.0); Lymphocytes # (A) 2.8 k/uL (1.0-4.8); Lymphocytes % (A) 22 %; MCH 31.7 pg (25.0-35.0); MCHC 32.9 g/dL (31.0-37.0); MCV 96.2 fL (80.0-100.0); Mean Platelet Volume 7.2; Monocytes # (A) 0.7 k/uL (0-1.0); Monocytes % (A) 6 %; Neutrophils # (A) 8.8 k/uL (1.3-7.7); Neutrophils % (A) 70 %; Platelet Count 257 k/uL (150-450); RDW 13.4 % (11.5-15.5); WBC 12.7 k/uL (3.8-10.6)
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
[2021-05-14 15:14] LABS: ALT 30 U/L (4-34); AST 38 U/L (14-36); African American GFR (CKD) 69 (>60 ml/min/1.73 sqM); Albumin 4.6 g/dL (3.5-5.0); Alcohol <10 mg/dL; Alkaline Phosphatase 114 U/L (38-126); Anion Gap 11 mmol/L; Blood Urea Nitrogen 19 mg/dL (7-17); Calcium 10.6 mg/dL (8.4-10.2); Carbon Dioxide 22 mmol/L (22-30); Chloride 101 mmol/L (98-107); Glucose 93 mg/dL (74-99); Non-African American GFR(CKD) 60 (>60 ml/min/1.73 sqM); Potassium 4.2 mmol/L (3.5-5.1); Sodium 134 mmol/L (137-145); Total Bilirubin 0.7 mg/dL (0.2-1.3)
[2021-05-14 15:17] LABS: INR 1.1 (<1.2); Partial Thromboplastin Time 25.3 sec (22.0-30.0); Prothrombin Time 11.3 sec (9.0-12.0)
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
[2021-05-14 17:28] LABS: Amphetamine Screen,Urine Not Detected (NotDetected); Appearance,Urine Clear (Clear); Barbiturate Screen,Urine Not Detected (NotDetected); Benzodiazepines Screen,Urine Not Detected (NotDetected); Bilirubin,Urine Negative (Negative); Blood,Urine Negative (Negative); Cocaine Screen,Urine Not Detected (NotDetected); Color,Urine Light Yellow; Glucose,Urine (UA) 3+ (Negative); Ketones,Urine 1+ (Negative); Leukocyte Esterase,Urine Moderate (Negative); Methadone Screen, Urine Not Detected (NotDetected); Nitrite,Urine Negative (Negative); Opiate Screen,Urine Not Detected (NotDetected); Oxycodone Screen, Urine Not Detected (NotDetected); Phencyclidine Screen,Urine Not Detected (NotDetected); Protein,Urine Negative (Negative); RBC,Urine 1 /hpf (0-5); Specific Gravity,Urine 1.014 (1.001-1.035); Squamous Epithelial Cell,Urine <1 /hpf (0-4); Tricyclic Antidepressant,Urine Not Detected (NotDetected); Urn Cannabinoid Scrn Not Detected (NotDetected); Urobilinogen,Urine <2.0 mg/dL (<2.0); WBC,Urine 9 /hpf (0-5)
[2021-05-14 18:12] VITALS: BP 116/77; PULSE 75; TEMP 98.1
== END 2021-05-14 18:39 | disposition home or self-care (01) ==
LOC: EC 13:34
DX: S20.00XA Contusion of breast, unspecified breast, initial encounter (principal); J45.909 Unspecified asthma, uncomplicated; E11.9 Type 2 diabetes mellitus without complications; E78.5 Hyperlipidemia, unspecified; M19.90 Unspecified osteoarthritis, unspecified site; F41.9 Anxiety disorder, unspecified; Z79.84 Long term (current) use of oral hypoglycemic drugs; Z79.51 Long term (current) use of inhaled steroids; V89.2XXA Person injured in unspecified motor-vehicle accident, traffic, initial encounter
CPT/HCPCS: 36415; 93005; 86900; 86901; 80053; 84484; 85025; 85610; 85730; 86850; 81001; 80306; 80320; 72170; 73564; 71045; 72125; 70450; 74177; 99285; 96374; 96376; J1170; Q9967

== ENCOUNTER → 2021-11-08 | Outpatient (CLI) | payer MEDICARE, BC ==
[2021-11-08 15:34] LABS: Albumin 4.3 g/dL (3.8-4.9); Albumin/Globulin Ratio 1.54 (1.60-3.17); Anion Gap 11.4 mmol/L (10.00-18.00); BUN/Creat Ratio 17.44 Ratio (12.00-20.00); Blood Urea Nitrogen 15.7 mg/dL (9.0-27.0); Calcium 9.8 mg/dL (8.7-10.3); Carbon Dioxide 25.6 mmol/L (20.0-27.5); Globulin 2.8 g/dL (1.6-3.3); HDL Cholesterol 85.5 mg/dL (40.00-60.00); Potassium 4.3 mmol/L (3.5-5.5); Total Bilirubin 0.6 mg/dL (0.30-1.20); Total Protein 7.1 g/dL (6.2-8.2); Triglycerides 35.9 mg/dL (0.00-149.00)
[2021-11-08 15:56] LABS: Chol/HDL Ratio 1.8 Ratio; LDL Cholesterol,Direct Reflex 60.4 mg/dL (0.00-129.00)
[2021-11-08 17:32] LABS: Microalbumin Creatinine Ratio <30 mg/g Creat (0-30); Urine Creatinine 35.7 mg/dL (28.0-217.0)
== END | disposition home or self-care (01) ==
LOC: LABWHC1 07:37
PROVIDERS: ATTEND Internal Medicine Cardiovascular Disease
DX: E11.9 Type 2 diabetes mellitus without complications (principal); E78.2 Mixed hyperlipidemia
CPT/HCPCS: 36415; 80053; 80061; 82043; 82570; 83036; 83721; 84443

== ENCOUNTER 2021-11-17 08:55 | Day surgery (SDC) | payer MEDICARE, BC ==
[~2021-11-17 08:55] MED LIST changes: +FAMOTIDINE 20 MG/2 ML VIAL IV PRN; +Pre Op ABX Message 1 EACH MISC MISCELLANE ONE; -SODIUM CHLORIDE 0.9% 1,000 ML IV SCH
[2021-11-17] MEDS ORDERED: LACTATED RINGERS 1,000 ML IV ONE (09:31)
[2021-11-17] MEDS ORDERED: LACTATED RINGERS 1,000 ML IV SCH (09:32)
[2021-11-17 09:58] LABS: Glucose,Whole Blood 88 mg/dL (70-110)
[2021-11-17] MEDS ORDERED: SUCCINYLCHOLINE CHLORIDE 100 MG/5 ML SYR IV ONE (10:46)
[2021-11-17] MEDS ORDERED: fentaNYL (PF) 50 MCG/ML 2 ML AMP ONE (10:46)
[2021-11-17] MEDS ORDERED: LIDOCAINE 2% INJ 20 MG/ML (2 ML VIAL) ONE (10:46)
[2021-11-17] MEDS ORDERED: PROPOFOL 10 MG/ML 20 ML VIAL IV ONE (10:46)
[2021-11-17] MEDS ORDERED: MIDAZOLAM 2 MG/2 ML VIAL ONE (10:46)
[2021-11-17] MEDS ORDERED: PHENYLEPHRINE-0.9% NACL SYG 1,000 MCG/10 ML SYRINGE ONE (10:46)
[2021-11-17] MEDS ORDERED: LIDOCAINE 1%-EPI 1:100,000 20 ML VIAL SQ ONE (11:21)
[2021-11-17] MEDS ORDERED: BACITRACIN ZINC 500 UNIT/GM OINT 28.4 GM TUBE TOPICAL ONE (11:21)
[2021-11-17] MEDS ORDERED: BUPIVACAINE (PF) 0.5% 30 ML VIAL SQ ONE (11:21)
[2021-11-17 12:04] VITALS: TEMP 97.3
[2021-11-17] MEDS ORDERED: HYDROmorphone 0.5 MG/0.5 ML SYRINGE IVP ONE ×3 (12:06→12:45)
--- NOTE | 2021-11-17 12:42 | P.OP ---
Date of Procedure: 11/17/21 Preoperative Diagnosis: Closed nasal bone fracture and deviated nasal septal deviation/fracture Postoperative Diagnosis: Same Procedure(s) Performed: Closed reduction of nasal bone fracture with stabilization Septoplasty Anesthesia: GETA Surgeon: Tae Buckley Estimated Blood Loss (ml): 5 Pathology: other (septum) Condition: stable Disposition: PACU Indications for Procedure: This patient was walking up the stairs and fell and fractured her left knee had a nasal bone fracture with a deviated septum with a septal fracture. She developed an external nasal deformity and a displaced nose correction was requested. All risks, benefits and alternative therapies were discussed. Consent was obtained and all questions were answered. Operative Findings: Patient had a severe right septal deviation septum was buckled and the nasal bones were crusting on the left and displaced to the right. Description of Procedure: Prior to surgery all risks, benefits, and alternative therapies were discussed. Risks of bleeding, infection, need for secondary surgery, nasal obstruction, loss of sense of smell, anesthetic risks etc. etc. were explained. Consent was obtained and all questions were answered. Patient was taken to the operative room and placed in the supine position. A general inhalation anesthetic was administered to the patient by mask and subsequently intubated with a cuffed endotracheal tube by the department of anesthesia with a functioning IV line in place. The patient was monitored throughout the entire case by the department of anesthesia. We did a ring block around the patient's nose with lidocaine 1% with epinephrine 1 100,000. 10 minutes were allowed wait for full vasoconstrictive effects to take place. At this time a ring block was performed around the nose. A caudal incision was made over the caudal portion of the left septum down to the mucoperichondrium. A mucoperichondrial flap was developed to the extent of visualization on the left and a crossover incision was made with for the mucoperichondrial flap development to the extent of visualization on the contralateral side. With use of crosshatching incisions the septum was straightened and placed back in the midline. After the septum was straightened and placed back in the midline the incision was closed with a 4 rapid Vicryl in a quilting stitch was used to reapproximate the septal flaps and the septum was stabilized the vomerian groove in the midline. After the septum was straightened we analyzed the external nose demonstrating a severe left depressed nasal bone fracture and a displaced box nose fracture to the right. The nasal bones were unstable. We then used a Boyes nasal elevator to straighten the external nose. The displaced nasal bones were placed back in position. We corrected the external nasal deformity and fractured nose with a Boyes elevator and straighten it. The nose was then taped and casted in usual fashion. Follow-up will be in the office in 1 week. The patient is to contact me if any problems should arise. Sinha splints were placed intranasally and then thermosplints were placed on the outside of the nose.
[2021-11-17] MEDS ORDERED: ONDANSETRON 4 MG/2 ML VIAL IVP ONE (13:44)
[2021-11-17] MEDS ORDERED: ONDANSETRON 4 MG/2 ML VIAL ONE (13:45)
[2021-11-17] MEDS ORDERED: METOCLOPRAMIDE 5 MG/ML 2 ML VIAL ONE (15:28)
[2021-11-17] MEDS ORDERED: DEXAMETHASONE SOD PHOSPHATE 10 MG/ML 1 ML VIAL IVP ONE (15:31)
[2021-11-17] MEDS ORDERED: METOCLOPRAMIDE 5 MG/ML 2 ML VIAL IVP ONE (15:32)
[2021-11-17 15:47] VITALS: BP 140/66; PULSE 77; RESP 17
== END 2021-11-17 16:14 | disposition home or self-care (01) ==
LOC: OR 08:55
PROVIDERS: ATTEND Otolaryngology
DX: J34.2 Deviated nasal septum (principal); S02.2XXA Fracture of nasal bones, initial encounter for closed fracture; W10.9XXA Fall (on) (from) unspecified stairs and steps, initial encounter
CPT/HCPCS: 21320; 30520; 88300; J2250; J1100; J2765; J2405; J3010; J2370; J0330; J2704; J1170; J1790; J2001

== ENCOUNTER → 2022-05-09 | Outpatient (CLI) | payer MEDICARE, BC ==
[2022-05-09 15:49] LABS: ALT 15 U/L (8-44); AST 17 U/L (13-35); African American GFR (CKD) 72.5 (60.0-200.0); Albumin/Globulin Ratio 1.33 (1.60-3.17); Alkaline Phosphatase 100 U/L (41-126); BUN/Creat Ratio 17.22 Ratio (12.00-20.00); Blood Urea Nitrogen 15.5 mg/dL (9.0-27.0); Chloride 103 mmol/L (96-109); Glucose 101 mg/dL (70-110); LDL Cholesterol,Calculated 85.5 mg/dL (0.0-131.0); Non-African American GFR(CKD) 62.5 (60.0-200.0); Sodium 140 mmol/L (135-145); VLDL Calculation 8.78 mg/dL (5.00-40.00)
[2022-05-09 19:29] LABS: Microalbumin Creatinine Ratio <30 mg/g Creat (0-30); Urine Creatinine 78.6 mg/dL (28.0-217.0)
== END | disposition home or self-care (01) ==
LOC: LABWHC1 08:35
PROVIDERS: ATTEND Internal Medicine Endocrinology, Diabetes & Metabolism
DX: E11.65 Type 2 diabetes mellitus with hyperglycemia (principal)
CPT/HCPCS: 36415; 80053; 80061; 82043; 82570; 83036; 84443

== ENCOUNTER → 2022-11-07 | Outpatient (CLI) | payer MEDICARE, BC ==
[2022-11-07 11:23] LABS: Microalbumin Creatinine Ratio <11 mg/g Cr
[2022-11-07 15:57] LABS: ALT 24 U/L; AST 20 U/L; Albumin 4.1 d/dL; Albumin/Globulin Ratio 1.37 Ratio; Alkaline Phosphatase 116 U/L; BUN/Creat Ratio 16.67 Ratio; Calcium 9.8 mg/dL; Carbon Dioxide 27.2 mmol/L; Chloride 98 mmol/L; Chol/HDL Ratio 2.29 Ratio; Glucose 112 mg/dL; LDL Cholesterol,Calculated 85.5 mg/dL; Potassium 4.5 mmol/L; Sodium 139 mmol/L; Total Bilirubin 0.4 mg/dL; Total Protein 7.1 d/dL; VLDL Calculation 10.72 mg/dL
== END | disposition home or self-care (01) ==
LOC: LABWHC1 07:19
PROVIDERS: ATTEND Internal Medicine Endocrinology, Diabetes & Metabolism
DX: E11.65 Type 2 diabetes mellitus with hyperglycemia (principal)
CPT/HCPCS: 36415; 80053; 80061; 82043; 82570; 83036; 84443

== ENCOUNTER → 2023-07-05 | Outpatient (CLI) | payer MEDICARE, BC ==
[2023-07-05 15:38] LABS: BUN/Creat Ratio 16.11 Ratio (12.00-20.00); Blood Urea Nitrogen 14.5 mg/dL (9.0-27.0); Carbon Dioxide 25.7 mmol/L (21.6-31.8); Chloride 99 mmol/L (96-109); Chol/HDL Ratio 1.92 Ratio; Glucose 100 mg/dL (70-110); LDL Cholesterol,Calculated 63.8 mg/dL (0.0-131.0); Potassium 4.2 mmol/L (3.5-5.5); Sodium 133 mmol/L (135-145)
[2023-07-05 15:39] LABS: ALT 16 U/L (8-44); AST 18 U/L (13-35); Albumin 4.1 g/dL (3.8-4.9); Albumin/Globulin Ratio 1.58 Ratio (1.60-3.17); Alkaline Phosphatase 111 U/L (41-126); Calcium 10.1 mg/dL (8.7-10.3); Globulin 2.6 g/dL (1.6-3.3); Total Bilirubin 0.4 mg/dL (0.3-1.2); Total Protein 6.7 g/dL (6.2-8.2)
[2023-07-05 20:45] LABS: Microalbumin Creatinine Ratio <12 mg/g Cr (0-30)
== END | disposition home or self-care (01) ==
LOC: LABWHC1 08:31
PROVIDERS: ATTEND Internal Medicine Endocrinology, Diabetes & Metabolism
DX: E11.65 Type 2 diabetes mellitus with hyperglycemia (principal)
CPT/HCPCS: 36415; 80053; 80061; 82043; 82570; 83036; 84443

== ENCOUNTER 2023-09-15 10:28 | Emergency (ER) | payer MEDICARE, BC ==
[2023-09-15 10:44] VITALS: RESP 18
[2023-09-15 11:39] LABS: Appearance,Urine Clear (Clear); Bilirubin,Urine Negative (Negative); Blood,Urine Trace (Negative); Color,Urine Yellow; Glucose,Urine (UA) Negative (Negative); Ketones,Urine Negative (Negative); Leukocyte Esterase,Urine Moderate (Negative); Mucus,Urine Rare /hpf; Nitrite,Urine Negative (Negative); Protein,Urine Negative (Negative); RBC,Urine 4 /hpf (0-5); Specific Gravity,Urine 1.016 (1.001-1.035); Squamous Epithelial Cell,Urine 1 /hpf (0-4); Urobilinogen,Urine <2.0 mg/dL (<2.0); WBC,Urine 2 /hpf (0-5)
[2023-09-15 11:46] LABS: Basophils # (A) 0.1 k/uL (0-0.2); Basophils % (A) 1 %; Eosinophils # (A) 0.5 k/uL (0-0.7); Eosinophils % (A) 4 %; HCT 45.5 % (34.0-46.0); HGB 15.2 gm/dL (11.4-16.0); Lymphocytes # (A) 0.9 k/uL (1.0-4.8); Lymphocytes % (A) 8 %; MCH 30.9 pg (25.0-35.0); MCHC 33.4 g/dL (31.0-37.0); MCV 92.3 fL (80.0-100.0); Mean Platelet Volume 7.8; Monocytes % (A) 9 %; Neutrophils # (A) 8.6 k/uL (1.3-7.7); Neutrophils % (A) 77 %; Platelet Count 263 k/uL (150-450); RBC 4.93 m/uL (3.80-5.40); RDW 13.5 % (11.5-15.5); WBC 11.2 k/uL (3.8-10.6)
[2023-09-15 12:00] LABS: ALT 18 U/L (4-34); AST 22 U/L (14-36); African American GFR (CKD) 89 (>60 ml/min/1.73 sqM); Albumin 3.8 g/dL (3.5-5.0); Alkaline Phosphatase 121 U/L (38-126); Anion Gap 9 mmol/L; Blood Urea Nitrogen 13 mg/dL (7-17); Calcium 9.2 mg/dL (8.4-10.2); Carbon Dioxide 23 mmol/L (22-30); Chloride 102 mmol/L (98-107); Glucose 132 mg/dL (74-99); Non-African American GFR(CKD) 77 (>60 ml/min/1.73 sqM); Potassium 3.9 mmol/L (3.5-5.1); Sodium 134 mmol/L (137-145); Total Bilirubin 0.7 mg/dL (0.2-1.3); Total Protein 6.8 g/dL (6.3-8.2)
--- NOTE | 2023-09-15 12:19 | US ---
EXAMINATION TYPE: US venous doppler duplex LE LT DATE OF EXAM: 09/15/2023 11:46 AM COMPARISON: NONE CLINICAL INDICATION: Female, 78 years old with history of pain, swelling; rash that started 1 week ag o, swelling to left leg, no h/o dvt, multiple left leg US negative SIDE PERFORMED: Left TECHNIQUE: The lower extremity deep venous system is examined utilizing real time linear array sonog shade with graded compression, doppler sonography and color-flow sonography. VESSELS IMAGED: Common Femoral Vein Deep Femoral Vein Greater Saphenous Vein * Femoral Vein Popliteal Vein Small Saphenous Vein * Proximal Calf Veins (* superficial vessels) Left Leg: Negative for DVT IMPRESSION: No evidence of DVT in the left lower extremity
--- NOTE | 2023-09-15 12:23 | ED ---
Extremity Problem HPI - General Chief complaint: Extremity Problem,Nontraumatic Stated complaint: rash both legs Time Seen by Provider: 09/15/23 10:39 Source: patient, RN notes reviewed Mode of arrival: ambulatory Limitations: no limitations - History of Present Illness Initial comments: 78-year-old female presents emergency department complaint of left leg and right leg swelling, redness. Patient states this will last for days. States he is currently being treated for UTI with Macrobid which she is on her last dose states urinary symptoms are cleared up. She states that the meds make her feel sick though. She denies any chest pain shortness of breath no flank pain she states that she has a history of blood clot but is on a blood thinners. - Related Data Home Medications Medication Instructions Recorded Confirmed Cholecalciferol [Vitamin D3 (25 5,000 unit PO DAILY 01/25/15 11/16/21 Mcg = 1000 Iu)] Glucosam/Jaren-Msm1/C/Robert/Bosw 1 tab PO BID 01/25/15 11/17/21 [Glucosamine-Chondroitin Tablet] Tolterodine [Detrol] 2 mg PO DAILY 01/25/15 11/17/21 Vitamin B Complex 1 cap PO DAILY 01/25/15 11/17/21 Triamcinolone Acetonide [Nasacort] 2 spray EA NOSTRIL DAILY 02/01/15 11/16/21 Aspirin [Adult Low Dose Aspirin EC] 81 mg PO DAILY 01/11/16 11/16/21 Albuterol Sulfate [Proair Hfa] 2 puff INHALATION Q6H PRN 06/26/17 11/16/21 Montelukast Sodium [Singulair] 10 mg PO HS 06/26/17 11/17/21 atenoloL 25 mg PO DAILY 06/26/17 11/16/21 Olopatadine HCl [Patanol] 1 drop BOTH EYES BID PRN 08/14/18 11/17/21 polyethylene glycoL 3350 [Miralax] 17 gm PO DAILY 08/14/18 11/17/21 Acetaminophen [Tylenol] 500 mg PO Q4-6H PRN 01/14/21 11/16/21 Calcium Carbonate/Vitamin D3 1 each PO DAILY 01/14/21 11/16/21 [Calcium 500 mg-Vit D3 5 mcg (200 Unit)] Famotidine/Ca Carb/Mag Hydrox 1 each PO HS PRN 01/14/21 11/16/21 [Pepcid Complete Tablet Chew] Fluticasone Propion/Salmeterol 1 inhalation PO BID 01/14/21 11/16/21 [Wixela 500-50 Inhub] Omalizumab [Xolair] 300 mg SQ Q30D 01/14/21 11/17/21 Cannabidiol (Cbd) [Epidiolex] 25 mg PO HS 11/16/21 11/17/21 Cetirizine HCl [Zyrtec] 10 mg PO DAILY 11/16/21 11/17/21 Cyanocobalamin (Vitamin B-12) 1,000 mcg PO DAILY 11/16/21 11/17/21 [Vitamin B-12] Diclofenac Sodium Gel [Voltaren 4 gm TOPICAL QID PRN 11/16/21 11/17/21 Gel] Rosuvastatin Calcium [Crestor] 5 mg PO TUSA 11/16/21 11/17/21 Previous Rx's Medication Instructions Recorded clindamycin HCL [Cleocin] 300 mg PO Q12H #20 cap 11/17/21 Cephalexin [Keflex] 500 mg PO Q6HR #28 cap 09/15/23 Allergies Allergy/AdvReac Type Severity Reaction Status Date / Time amoxicillin Allergy itchy Verified 09/15/23 10:35 throat Sulfa (Sulfonamide Allergy Unknown Verified 09/15/23 10:35 Antibiotics) sulfamethoxazole Allergy Rash/Hives Verified 09/15/23 10:35 [From Bactrim] trimethoprim [From Bactrim] Allergy Rash/Hives Verified 09/15/23 10:35 gabapentin AdvReac dizzy Verified 09/15/23 10:35 lisinopril AdvReac Cough Verified 09/15/23 10:35 [id number]-YrS Reductase AdvReac leg Verified 09/15/23 10:35 Inhibitor swelling & pain Review of Systems ROS Statement: Those systems with pertinent positive or pertinent negative responses have been documented in the HPI. ROS Other: All systems not noted in ROS Statement are negative. Past Medical History Past Medical History: Asthma, Diabetes Mellitus, Fibromyalgia, GERD/Reflux, Hearing Disorder / Deafness, Hyperlipidemia, Osteoarthritis (OA), Pneumonia, Skin Disorder Additional Past Medical History / Comment(s): Hx. bronchial asthma, chronic ALLERGIC rhinitis, edema legs, hx. superficial thrombophlebitis, spinal stenosis, scoliosis of the spine, takes atenolol for palpitations, hiatal hernia, degenerative disc disease, peripheral neuropathy, diet controlled diab etic, fell last Sunday & fx. nose, possibly hairline fx. 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 Mother Family Medical History: Cancer General Exam Limitations: no limitations General appearance: alert, in no apparent distress Head exam: Present: atraumatic, normocephalic, normal inspection Eye exam: Present: normal appearance, PERRL, EOMI. Absent: scleral icterus, co njunctival injection, periorbital swelling Respiratory exam: Present: normal lung sounds bilaterally. Absent: respiratory distress, wheezes, rales, rhonchi, stridor Cardiovascular Exam: Present: regular rate, normal rhythm, normal heart sounds. Absent: systolic murmur, diastolic murmur, rubs, gallop, clicks GI/Abdominal exam: Present: soft, normal bowel sounds. Absent: distended, tenderness, guarding, rebound, rigid Extremities exam: Present: other (Bilateral lower extremity swelling left gre ater than right there is erythema associated with it) Course Vital Signs 09/15/23 09/15/23 10:30 12:34 Temperature 97.6 F 97.9 F Pulse Rate 92 83 Respiratory 18 18 Rate Blood Pressure 123/70 119/60 O2 Sat by Pulse 95 97 Oximetry Medical Decision Making - Medical Decision Making Was pt. sent in by a medical professional or institution (, PA, THROUGH FREIGHT ENGINEER, urgent care, hospital, or prison...) When possible be specific @ -[No] Did you speak to anyone other than the patient for history (EMS, parent, family, police, friend...)? What history was obtained from this source @ -[No] Did you review nursing and triage notes (agree or disagree)? Why? @ -[I reviewed and agree with nursing and triage notes] Were old charts reviewed (outside hosp., previous admission, EMS record, old EKG, old radiological studies, urgent care reports/EKG's, prison records)? Report findings @ -No old charts were reviewed Differential Diagnosis (chest pain, altered mental status, abdominal pain women, abdominal pain men, vaginal bleeding, weakness, fever, dyspnea, syncope, headache, dizziness, GI bleed, back pain, seizure, CVA, palpatations, mental health, musculoskeletal)? @ -Edema, cellulitis, DVT EKG interpreted by me (3pts min.). @ -None X-rays interpreted by me (1pt min.). @ -None done CT interpreted by me (1pt min.). @ -None done U/S interpreted by me (1pt. min.). @ -[Ultrasound left venous Doppler negative for acute DVT What testing was considered but not performed or refused? (CT, X-rays, U/S, labs)? Why? @ -None What meds were considered but not given or refused? Why? @ -None Did you discuss the management of the patient with other professionals (professionals i.e. , PA, THROUGH FREIGHT ENGINEER, lab, RT, psych nurse, older adult social work specialist, junior manufacturing engineer, teacher, bsa officer, nurse case manager)? Give summary @ -No Was smoking cessation discussed for >3mins.? @ -No Was critical care preformed (if so, how long)? @ -No Were there social determinants of health that impacted care today? How? (Homelessness, low income, unemployed, alcoholism, drug addiction, transportation, low edu. Level, literacy, decrease access to med. care, nursing home, rehab)? @ -No Was there de-escalation of care discussed even if they declined (Discuss DNR or withdrawal of care, Hospice)? DNR status @ -No What co-morbidities impacted this encounter? (DM, HTN, Smoking, COPD, CAD, Cancer, CVA, ARF, Chemo, Hep., AIDS, mental health diagnosis, sleep apnea, morbid obesity)? @ -None Was patient admitted / discharged? Hospital course, mention meds given and route, prescriptions, significant lab abnormalities, going to OR and other pertinent info. @Charge patient laboratory findings unremarkable, ultrasound was unremarkable patient has evidence of cellulitis urinalysis improved with current treatment. Patient be discharged on Keflex for cellulitis, leg stockings and elevation close follow-up Undiagnosed new problem with uncertain prognosis? @ -No Drug Therapy requiring intensive monitoring for toxicity (Heparin, Nitro, In sulin, Cardizem)? @ -No Were any procedures done? @ -No Diagnosis/symptom? @ -Leg edema, cellulitis Acute, or Chronic, or Acute on Chronic? @ -Acute Uncomplicated (without systemic symptoms) or Complicated (systemic symptoms)? @ -Uncomplicated Side effects of treatment? @ -No Exacerbation, Progression, or Severe Exacerbation? @ -No Poses a threat to life or bodily function? How? (Chest pain, [place], [place], pneumonia, PE, COPD, DKA, ARF, appy, cholecystitis, CVA, Diverticulitis, Homicidal, Suicidal, threat to staff... and all critical care pts) @ -No - Lab Data Result diagrams: 09/15/23 11:04 09/15/23 11:04 Lab Results 09/15/23 09/15/23 09/15/23 Range/Units 10:54 11:04 11:04 WBC 11.2 H (3.8-10.6) k/uL RBC 4.93 (3.80-5.40) m/uL Hgb 15.2 (11.4-16.0) gm/dL Hct 45.5 (34.0-46.0) % MCV 92.3 (80.0-100.0) fL MCH 30.9 (25.0-35.0) pg MCHC 33.4 (31.0-37.0) g/dL RDW 13.5 (11.5-15.5) % Plt Count 263 (150-450) k/uL MPV 7.8 Neutrophils % 77 % Lymphocytes % 8 % Monocytes % 9 % Eosinophils % 4 % Basophils % 1 % Neutrophils # 8.6 H (1.3-7.7) k/uL Lymphocytes # 0.9 L (1.0-4.8) k/uL Monocytes # 1.0 (0-1.0) k/uL Eosinophils # 0.5 (0-0.7) k/uL Basophils # 0.1 (0-0.2) k/uL Sodium 134 L (137-145) mmol/L Potassium 3.9 (3.5-5.1) mmol/L Chloride 102 (98-107) mmol/L Carbon Dioxide 23 (22-30) mmol/L Anion Gap 9 mmol/L BUN 13 (7-17) mg/dL Creatinine 0.76 (0.52-1.04) mg/dL Est GFR (CKD-EPI)AfAm 89 (>60 ml/min/1.73 sqM) Est GFR (CKD-EPI)NonAf 77 (>60 ml/min/1.73 sqM) Glucose 132 H (74-99) mg/dL Plasma Lactic Acid Jv (0.7-2.0) mmol/L Calcium 9.2 (8.4-10.2) mg/dL Total Bilirubin 0.7 (0.2-1.3) mg/dL AST 22 (14-36) U/L ALT 18 (4-34) U/L Alkaline Phosphatase 121 (38-126) U/L Total Protein 6.8 (6.3-8.2) g/dL Albumin 3.8 (3.5-5.0) g/dL Urine Color Yellow Urine Appearance Clear (Clear) Urine pH 6.0 (5.0-8.0) Ur Specific [place] 1.016 (1.001-1.035) Urine Protein Negative (Negative) Urine Glucose (UA) Negative (Negative) Urine Ketones Negative (Negative) Urine Blood Trace H (Negative) Urine Nitrite Negative (Negative) Urine Bilirubin Negative (Negative) Urine Urobilinogen <2.0 (<2.0) mg/dL Ur Leukocyte Esterase Moderate H (Negative) Urine RBC 4 (0-5) /hpf Urine WBC 2 (0-5) /hpf Ur Squamous Epith Cells 1 (0-4) /hpf Urine Mucus Rare H (None) /hpf 09/15/23 Range/Units 11:04 WBC (3.8-10.6) k/uL RBC (3.80-5.40) m/uL Hgb (11.4-16.0) gm/dL Hct (34.0-46.0) % MCV (80.0-100.0) fL MCH (25.0-35.0) pg MCHC (31.0-37.0) g/dL RDW (11.5-15.5) % Plt Count (150-450) k/uL MPV Neutrophils % % Lymphocytes % % Monocytes % % Eosinophils % % Basophils % % Neutrophils # (1.3-7.7) k/uL Lymphocytes # (1.0-4.8) k/uL Monocytes # (0-1.0) k/uL Eosinophils # (0-0.7) k/uL Basophils # (0-0.2) k/uL Sodium (137-145) mmol/L Potassium (3.5-5.1) mmol/L Chloride (98-107) mmol/L Carbon Dioxide (22-30) mmol/L Anion Gap mmol/L BUN (7-17) mg/dL Creatinine (0.52-1.04) mg/dL Est GFR (CKD-EPI)AfAm (>60 ml/min/1.73 sqM) Est GFR (CKD-EPI)NonAf (>60 ml/min/1.73 sqM) Glucose (74-99) mg/dL Plasma Lactic Acid Jv 1.4 (0.7-2.0) mmol/L Calcium (8.4-10.2) mg/dL Total Bilirubin (0.2-1.3) mg/dL AST (14-36) U/L ALT (4-34) U/L Alkaline Phosphatase (38-126) U/L Total Protein (6.3-8.2) g/dL Albumin (3.5-5.0) g/dL Urine Color Urine Appearance (Clear) Urine pH (5.0-8.0) Ur Specific [place] (1.001-1.035) Urine Protein (Negative) Urine Glucose (UA) (Negative) Urine Ketones (Negative) Urine Blood (Negative) Urine Nitrite (Negative) Urine Bilirubin (Negative) Urine Urobilinogen (<2.0) mg/dL Ur Leukocyte Esterase (Negative) Urine RBC (0-5) /hpf Urine WBC (0-5) /hpf Ur Squamous Epith Cells (0-4) /hpf Urine Mucus (None) /hpf Disposition Clinical Impression: Cellulitis, leg, Pedal edema Disposition: HOME SELF-CARE Condition: Stable Instructions (If sedation given, give patient instructions): Cellulitis (ED) Additional Instructions: Please return to the Emergency Department if symptoms worsen or any other concerns. Prescriptions: Cephalexin [Keflex] 500 mg PO Q6HR #28 cap Is patient prescribed a controlled substance at d/c from ED?: No Referrals: Vira Torres MD [Primary Care Provider] - 1-2 days Time of Disposition: 12:23
[2023-09-15 13:15] VITALS: BP 119/60; PULSE 83; TEMP 97.9
== END 2023-09-15 12:47 | disposition home or self-care (01) ==
LOC: EC 10:28
DX: L03.116 Cellulitis of left lower limb (principal); L03.115 Cellulitis of right lower limb; Z88.1 Allergy status to other antibiotic agents; Z88.8 Allergy status to other drugs, medicaments and biological substances; Z88.2 Allergy status to sulfonamides
CPT/HCPCS: 36415; 80053; 81001; 83605; 85025; 99284

== ENCOUNTER 2023-11-23 12:36 | Emergency (ER) | payer MEDICARE, BC ==
[2023-11-23 12:40] VITALS: TEMP 97.8
--- NOTE | 2023-11-23 13:44 | ED ---
Extremity Problem HPI - General Chief complaint: Extremity Problem,Nontraumatic Stated complaint: Blood clot Time Seen by Provider: 11/23/23 13:31 Source: patient, RN notes reviewed Mode of arrival: wheelchair Limitations: no limitations - History of Present Illness Initial comments: 78-year-old female presents emergency department complaint of left leg pain she states that she had a scopic knee surgery for meniscus repair on 11/07. Patient states that she has had some discomfort she went for an ultrasound today showing DVT. She denies any chest pain shortness of breath denies any history of DVT. Patient denies any associated complaints. - Related Data Home Medications Medication Instructions Recorded Confirmed Cholecalciferol [Vitamin D3 (25 5,000 unit PO DAILY 01/25/15 11/16/21 Mcg = 1000 Iu)] Glucosam/Jaren-Msm1/C/Robert/Bosw 1 tab PO BID 01/25/15 11/17/21 [Glucosamine-Chondroitin Tablet] Tolterodine [Detrol] 2 mg PO DAILY 01/25/15 11/17/21 Vitamin B Complex 1 cap PO DAILY 01/25/15 11/17/21 Triamcinolone Acetonide [Nasacort] 2 spray EA NOSTRIL DAILY 02/01/15 11/16/21 Aspirin [Adult Low Dose Aspirin EC] 81 mg PO DAILY 01/11/16 11/16/21 Albuterol Sulfate [Proair Hfa] 2 puff INHALATION Q6H PRN 06/26/17 11/16/21 Montelukast Sodium [Singulair] 10 mg PO HS 06/26/17 11/17/21 atenoloL 25 mg PO DAILY 06/26/17 11/16/21 Olopatadine HCl [Patanol] 1 drop BOTH EYES BID PRN 08/14/18 11/17/21 polyethylene glycoL 3350 [Miralax] 17 gm PO DAILY 08/14/18 11/17/21 Acetaminophen [Tylenol] 500 mg PO Q4-6H PRN 01/14/21 11/16/21 Calcium Carbonate/Vitamin D3 1 each PO DAILY 01/14/21 11/16/21 [Calcium 500 mg-Vit D3 5 mcg (200 Unit)] Famotidine/Ca Carb/Mag Hydrox 1 each PO HS PRN 01/14/21 11/16/21 [Pepcid Complete Tablet Chew] Fluticasone Propion/Salmeterol 1 inhalation PO BID 01/14/21 11/16/21 [Wixela 500-50 Inhub] Omalizumab [Xolair] 300 mg SQ Q30D 01/14/21 11/17/21 Cannabidiol (Cbd) [Epidiolex] 25 mg PO HS 11/16/21 11/17/21 Cetirizine HCl [Zyrtec] 10 mg PO DAILY 11/16/21 11/17/21 Cyanocobalamin (Vitamin B-12) 1,000 mcg PO DAILY 11/16/21 11/17/21 [Vitamin B-12] Diclofenac Sodium Gel [Voltaren 4 gm TOPICAL QID PRN 11/16/21 11/17/21 Gel] Rosuvastatin Calcium [Crestor] 5 mg PO TUSA 11/16/21 11/17/21 Previous Rx's Medication Instructions Recorded clindamycin HCL [Cleocin] 300 mg PO Q12H #20 cap 11/17/21 Cephalexin [Keflex] 500 mg PO Q6HR #28 cap 09/15/23 Apixaban [Eliquis Starter Pack 0 mg PO DIRECTED 30 Days #1 11/23/23 (for VTE)] packet Allergies Allergy/AdvReac Type Severity Reaction Status Date / Time amoxicillin Allergy itchy Verified 11/23/23 12:40 throat Sulfa (Sulfonamide Allergy Unknown Verified 11/23/23 12:40 Antibiotics) sulfamethoxazole Allergy Rash/Hives Verified 11/23/23 12:40 [From Bactrim] trimethoprim [From Bactrim] Allergy Rash/Hives Verified 11/23/23 12:40 gabapentin AdvReac dizzy Verified 11/23/23 12:40 lisinopril AdvReac Cough Verified 11/23/23 12:40 Ooopsdt-WJT-NzF Reductase AdvReac leg Verified 11/23/23 12:40 Inhibitor swelling & pain Review of Systems ROS Statement: Those systems with pertinent positive or pertinent negative responses have been documented in the HPI. ROS Other: All systems not noted in ROS Statement are negative. Past Medical History Past Medical History: Asthma, Diabetes Mellitus, Fibromyalgia, GERD/Reflux, Hearing Disorder / Deafness, Hyperlipidemia, Osteoarthritis (OA), Pneumonia, Skin Disorder Additional Past Medical History / Comment(s): Hx. bronchial asthma, chronic ALLERGIC rhinitis, edema legs, hx. superficial thrombophlebitis, spinal stenosis, scoliosis of the spine, takes atenolol for palpitations, hiatal hernia, degenerative disc disease, peripheral neuropathy, diet controlled diabetic, fell last Sunday & fx. nose, possibly hairline fx. 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 Mother Family Medical History: Cancer General Exam Limitations: no limitations General appearance: alert, in no apparent distress Head exam: Present: atraumatic, normocephalic, normal inspection Eye exam: Present: normal appearance, PERRL, EOMI. Absent: scleral icterus, conjunctival injection, periorbital swelling Respiratory exam: Present: normal lung sounds bilaterally. Absent: respiratory distress, wheezes, rales, rhonchi, stridor Cardiovascular Exam: Present: regular rate, normal rhythm, normal heart sounds. Absent: systolic murmur, diastolic murmur, rubs, gallop, clicks Extremities exam: Present: other (Left knee, leg swelling minimal edema pulses palpable mild tenderness) Course Vital Signs 11/23/23 12:37 Temperature 97.8 F Pulse Rate 76 Respiratory 20 Rate Blood Pressure 134/74 O2 Sat by Pulse 96 Oximetry Medical Decision Making - Medical Decision Making Was pt. sent in by a medical professional or institution (, PA, [employer], urgent care, hospital, or care home...) When possible be specific @ -Orthopedic surgeon Did you speak to anyone other than the patient for history (EMS, parent, family, police, friend...)? What history was obtained from this source @ -No Did you review nursing and triage notes (agree or disagree)? Why? @ -I reviewed and agree with nursing and triage notes Were old charts reviewed (outside hosp., previous admission, EMS record, old EKG, old radiological studies, urgent care reports/EKG's, care home records)? Report findings @ -No old charts were reviewed Differential Diagnosis (chest pain, altered mental status, abdominal pain women, abdominal pain men, vaginal bleeding, weakness, fever, dyspnea, syncope, headache, dizziness, GI bleed, back pain, seizure, CVA, palpatations, mental health, musculoskeletal)? @ -DVT, leg edema, superficial thrombophlebitis EKG interpreted by me (3pts min.). @ -None X-rays interpreted by me (1pt min.). @ -None done CT interpreted by me (1pt min.). @ -None done U/S interpreted by me (1pt. min.). @ -Ultrasound none performed outpatient showing evidence of popliteal and proximal calf DVT What testing was considered but not performed or refused? (CT, X-rays, U/S, labs)? Why? @ -None What meds were considered but not given or refused? Why? @ -None Did you discuss the management of the patient with other professionals (professionals i.e. , PA, [employer], lab, RT, psych nurse, child protective services social worker, draw bench operator, teacher, correctional officer, case managers)? Give summary @ -No Was smoking cessation discussed for >3mins.? @ -No Was critical care preformed (if so, how long)? @ -No Were there social determinants of health that impacted care today? How? (Homelessness, low income, unemployed, alcoholism, drug addiction, transportation, low edu. Level, literacy, decrease access to med. care, [place] [facility], rehab)? @ -No Was there de-escalation of care discussed even if they declined (Discuss DNR or withdrawal of care, Hospice)? DNR status @ -No What co-morbidities impacted this encounter? (DM, HTN, Smoking, COPD, CAD, Cancer, CVA, ARF, Chemo, Hep., AIDS, mental health diagnosis, sleep apnea, morbid obesity)? @ -None Was patient admitted / discharged? Hospital course, mention meds given and route, prescriptions, significant lab abnormalities, going to OR and other pertinent info. @ -Discharge patient is found to have uncomplicated DVT of the left leg after surgery patient has no chest pain or shortness of breath no tachycardia. Patient started on Eliquis she will be discharged on close she was given strict return parameters including uses of blood thinners. Undiagnosed new problem with uncertain prognosis? @ -No Drug Therapy requiring intensive monitoring for toxicity (Heparin, Nitro, Insulin, Cardizem)? @ -No Were any procedures done? @ -No Diagnosis/symptom? @ -Left leg DVT Acute, or Chronic, or Acute on Chronic? @ -Acute Uncomplicated (without systemic symptoms) or Complicated (systemic symptoms)? @ -Uncomplicated Side effects of treatment? @ -No Exacerbation, Progression, or Severe Exacerbation? @ -No Poses a threat to life or bodily function? How? (Chest pain, USA, GA, pneumonia, PE, COPD, DKA, ARF, appy, cholecystitis, CVA, Diverticulitis, Homicidal, Suicidal, threat to staff... and all critical care pts) @ -No Disposition Clinical Impression: Left leg DVT Disposition: HOME SELF-CARE Condition: Stable Instructions (If sedation given, give patient instructions): Deep Vein Thrombosis (ED) Additional Instructions: Please return to the Emergency Department if symptoms worsen or any other concerns. Prescriptions: Apixaban [Eliquis Starter Pack (for VTE)] 0 mg PO DIRECTED 30 Days #1 packet Is patient prescribed a controlled substance at d/c from ED?: No Referrals: Vira Torres MD [Primary Care Provider] - 1-2 days Time of Disposition: 13:44
[2023-11-23] MEDS: APIXABAN 5 MG TAB PO STA (13:53)
[2023-11-23 13:58] VITALS: BP 140/65; PULSE 74; RESP 18
== END 2023-11-23 13:58 | disposition home or self-care (01) ==
LOC: EC 12:36
DX: I82.402 Acute embolism and thrombosis of unspecified deep veins of left lower extremity (principal); Z88.0 Allergy status to penicillin; Z88.2 Allergy status to sulfonamides; Z88.8 Allergy status to other drugs, medicaments and biological substances
CPT/HCPCS: 99282

== ENCOUNTER → 2023-11-23 | Outpatient (CLI) | payer MEDICARE, BC ==
--- NOTE | 2023-11-23 12:54 | US ---
EXAMINATION TYPE: US venous doppler duplex LE LT DATE OF EXAM: 11/23/2023 12:24 PM COMPARISON: US CLINICAL INDICATION: Female, 78 years old with history of LLE; I80.9PHLEBITIS AND THROMBOPHLEBITIS OF UNSPEC; Left leg pain s/p surgery SIDE PERFORMED: Left TECHNIQUE: The lower extremity deep venous system is examined utilizing real time linear array sonog shade with graded compression, doppler sonography and color-flow sonography. VESSELS IMAGED: Common Femoral Vein Deep Femoral Vein Greater Saphenous Vein * Femoral Vein Popliteal Vein Small Saphenous Vein * Proximal Calf Veins (* superficial vessels) Left Leg: Positive for DVT within the mid popliteal veins to the proximal calf veins Results called to Ramiro at 's office at time of exam IMPRESSION: Positive deep vein thrombosis within the right popliteal veins and proximal calf veins.
== END | disposition home or self-care (01) ==
LOC: RADUSWWP 11:29
PROVIDERS: ATTEND Orthopaedic Surgery
DX: I82.431 Acute embolism and thrombosis of right popliteal vein (principal); I80.9 Phlebitis and thrombophlebitis of unspecified site; L03.116 Cellulitis of left lower limb; S83.422D Sprain of lateral collateral ligament of left knee, subsequent encounter; M23.322 Other meniscus derangements, posterior horn of medial meniscus, left knee; S89.292D Other physeal fracture of upper end of left fibula, subsequent encounter for fracture with routine healing; G90.09 Other idiopathic peripheral autonomic neuropathy; E11.9 Type 2 diabetes mellitus without complications; Z48.89 Encounter for other specified surgical aftercare

== ENCOUNTER 2024-03-13 11:09 | Observation (INO) | payer MEDICARE, BC ==
[2024-03-13 11:57] LABS: Basophils % (A) 1 %; Eosinophils # (A) 0.2 k/uL (0-0.7); Eosinophils % (A) 3 %; HCT 44.4 % (34.0-46.0); HGB 14.5 gm/dL (11.4-16.0); Lymphocytes % (A) 24 %; MCH 31.1 pg (25.0-35.0); MCHC 32.6 g/dL (31.0-37.0); MCV 95.4 fL (80.0-100.0); Monocytes # (A) 0.7 k/uL (0-1.0); Monocytes % (A) 8 %; Neutrophils # (A) 5.2 k/uL (1.3-7.7); Neutrophils % (A) 62 %; Platelet Count 240 k/uL (150-450); RBC 4.65 m/uL (3.80-5.40); RDW 12.9 % (11.5-15.5); WBC 8.3 k/uL (3.8-10.6)
[2024-03-13 12:08] LABS: ALT 21 U/L (4-34); African American GFR (CKD) 84 (>60 ml/min/1.73 sqM); Albumin 3.8 g/dL (3.5-5.0); Anion Gap 5 mmol/L; Blood Urea Nitrogen 16 mg/dL (7-17); Calcium 9.8 mg/dL (8.4-10.2); Carbon Dioxide 27 mmol/L (22-30); Chloride 106 mmol/L (98-107); Glucose 87 mg/dL (74-99); Non-African American GFR(CKD) 73 (>60 ml/min/1.73 sqM); Sodium 138 mmol/L (137-145); Total Bilirubin 0.7 mg/dL (0.2-1.3); Total Protein 6.6 g/dL (6.3-8.2)
[2024-03-13 12:09] LABS: Partial Thromboplastin Time 30.9 sec (22.0-30.0); Prothrombin Time 11.2 sec (10.0-12.5)
[2024-03-13 12:12] LABS: AST 34 U/L (14-36); Alkaline Phosphatase 87 U/L (38-126)
[2024-03-13 12:29] LABS: Creatine Kinase 94 U/L (30-135)
--- NOTE | 2024-03-13 12:29 | CT ---
EXAMINATION TYPE: CT brain wo con DATE OF EXAM: 03/13/2024 COMPARISON: None HISTORY: AMS CT DLP: 1071.2 mGycm Automated exposure control for dose reduction was used. Findings: The ventricles, basal cisterns and sulci over convexities are mildly enlarged consistent with mild ge neralized atrophy, appropriate for the patient's age. There is marked decreased density in the periventricular white matter consistent with marked chronic ischemic white matter demyelination.. There is no mass effect or shift of midline structures. There is no acute intra or extra-axial hemorrhage.. The posterior fossa including the brainstem, fourth ventricle and cerebellar pontine angles appear no rmal. Intraorbital contents appear normal and symmetric. Visualized paranasal sinuses and mastoid air cells are well aerated. The calvarium is intact. IMPRESSION: 1. No acute bleed or mass effect. 2. Marked chronic ischemic white matter demyelination. 3. Mild age-appropriate atrophy. [facility], , 03/13/2024 12:27 PM
--- NOTE | 2024-03-13 12:50 | CT ---
EXAMINATION TYPE: CT angio head neck CT DLP: 422.7 mGycm, Automated exposure control for dose reduction was used. DATE OF EXAM: 03/13/2024 12:36 PM COMPARISON: CT brain 03/13/2024. CLINICAL INDICATION:Female, 79 years old with history of Neuro deficit, acute, stroke suspected; PHH, AMS TECHNIQUE: Axially acquired helical CT angiogram of the head and neck was obtained with contrast util izing 75 cc of Isovue-370 administered intravenously. Axial images are supplemented with 3D reconstru ctions which were post-processed at an independent workstation. NASCET criteria used. FINDINGS: CTA HEAD: No evidence of acute intracranial hemorrhage, mass effect, or midline shift. The ventricles, sulci, a nd cisterns are unremarkable. The visualized portions of the internal carotid arteries, middle cerebral arteries, anterior cerebral arteries, and posterior cerebral arteries are patent. The basilar and vertebral arteries are patent. CTA NECK: Right Carotid System: The common carotid artery and external carotid artery are patent. The carotid bifurcation demonstrate s no evidence of hemodynamically significant stenosis. The remaining portions of the internal carotid artery demonstrate normal size without significant narrowing. Left Carotid System: The common carotid artery and external carotid artery are patent. The carotid bifurcation demonstrate s no evidence of hemodynamically significant stenosis. The remaining portions of the internal carotid artery demonstrate normal size without significant narrowing. Vertebral arteries are patent without evidence hemodynamically significant stenosis. The vertebral ar teries are codominant. There is a three-vessel aortic arch. The origins of the great vessels are patent. No evidence of hemo dynamically significant stenosis. Advanced degenerative changes of the cervical spine with large anterior osteophytosis. Grade 1 judy listhesis of C2 on C3 and C3 on C4. The nodular thyroid gland. IMPRESSION: 1. No evidence of dissection of the cervical internal carotid arteries or vertebral arteries or any e vidence of significant stenosis at the carotid bifurcations. 2. No evidence of high-grade stenosis or intracranial aneurysm. [facility], , 03/13/2024 12:48 PM
--- NOTE | 2024-03-13 12:54 | XR ---
EXAMINATION TYPE: XR chest 2V DATE OF EXAM: 03/13/2024 COMPARISON: 05/14/2021 HISTORY: 79-year-old female confusion, altered mental status TECHNIQUE: AP and lateral views FINDINGS: Heart mildly enlarged. Diffuse interstitial and vascular prominence without vero consolidation or pl eural effusion. IMPRESSION: Mild cardiomegaly with diffuse interstitial prominence. Consider mild CHF with pulmonary vascular con gestion. [facility], , 03/13/2024 12:52 PM
--- NOTE | 2024-03-13 14:08 | ED ---
General Adult HPI - General Chief complaint: Neuro Symptoms/Deficit Stated complaint: neuro symptoms Time Seen by Provider: 03/13/24 11:20 Source: patient Mode of arrival: wheelchair - History of Present Illness Initial comments: 79-year-old female presents to the emergency department with strokelike symptoms. She states around 1045 this morning she had sudden onset of expressive aphasia. She was trying to talk to her when she could not get the words out. Patient knew what she wanted to say. States she was conscious throughout the whole event but could not come up with the words. She admits to some off-balance sensation. No headache. No history of stroke. No recent head injury. Denies any lateralizing weakness. Symptoms are completely resolved upon ER arrival. No other alleviating, precipitating or modifying factors - Related Data Home Medications Medication Instructions Recorded Confirmed Glucosam/Jaren-Msm1/C/Robert/Bosw 1 tab PO BID 01/25/15 03/13/24 [Glucosamine-Chondroitin Tablet] Tolterodine [Detrol] 2 mg PO BID 01/25/15 03/13/24 Vitamin B Complex 1 cap PO DAILY 01/25/15 03/13/24 Montelukast Sodium [Singulair] 10 mg PO HS 06/26/17 03/13/24 atenoloL 25 mg PO DAILY 06/26/17 03/13/24 Acetaminophen [Tylenol] 500 mg PO Q4-6H PRN 01/14/21 03/13/24 Calcium Carbonate/Vitamin D3 1 tab PO DAILY 01/14/21 03/13/24 [Calcium 500 mg-Vit D3 5 mcg (200 Unit)] Fluticasone Propion/Salmeterol 1 puff INHALATION RT-BID 01/14/21 03/13/24 [Wixela 500-50 Inhub] Cetirizine HCl [Zyrtec] 10 mg PO DAILY 11/16/21 03/13/24 Cyanocobalamin (Vitamin B-12) 1,000 mcg PO DAILY 11/16/21 03/13/24 [Vitamin B-12] Apixaban [Eliquis] 5 mg PO BID 03/13/24 03/13/24 Cbd Gummy 1 tab PO HS 03/13/24 03/13/24 Cholecalciferol [Vitamin D3 (125 125 mcg PO DAILY 03/13/24 03/13/24 Mcg = 5000 Iu)] Cranberry Fruit Extract [Cranberry] 500 mg PO DAILY 03/13/24 03/13/24 Cyclobenzaprine [Flexeril] 10 mg PO TID PRN 03/13/24 03/13/24 HYDROcodone/APAP 7.5-325MG [[place] 1 tab PO Q6H PRN 03/13/24 03/13/24 7.5-325] Multivitamins, Thera [Multivitamin 1 tab PO DAILY 03/13/24 03/13/24 (formulary)] Omeprazole [PriLOSEC] 20 mg PO DAILY 03/13/24 03/13/24 traMADol HCL 50 mg PO Q4-6H PRN 03/13/24 03/13/24 Previous Rx's Medication Instructions Recorded Clopidogrel [Plavix] 75 mg PO DAILY #30 tab 03/14/24 Losartan [Cozaar] 50 mg PO DAILY #30 tab 03/14/24 Rosuvastatin [Crestor] 20 mg PO DAILY #30 tablet 03/14/24 hydroCHLOROthiazide [Hydrodiuril] 25 mg PO DAILY #30 tab 03/14/24 Allergies Allergy/AdvReac Type Severity Reaction Status Date / Time amoxicillin Allergy itchy Verified 03/13/24 13:49 throat Sulfa (Sulfonamide Allergy Unknown Verified 03/13/24 13:49 Antibiotics) sulfamethoxazole Allergy Rash/Hives Verified 03/13/24 13:49 [From Bactrim] trimethoprim [From Bactrim] Allergy Rash/Hives Verified 03/13/24 13:49 gabapentin AdvReac dizzy Verified 03/13/24 13:49 lisinopril AdvReac Cough Verified 03/13/24 13:49 Xyvricw-FBG-UfP Reductase AdvReac leg Verified 03/13/24 13:49 Inhibitor swelling & pain Review of Systems ROS Statement: Those systems with pertinent positive or pertinent negative responses have been documented in the HPI. ROS Other: All systems not noted in ROS Statement are negative. Past Medical History Past Medical History: Asthma, Diabetes Mellitus, Fibromyalgia, GERD/Reflux, Hearing Disorder / Deafness, Hyperlipidemia, Osteoarthritis (OA), Pneumonia, Skin Disorder Additional Past Medical History / Comment(s): Hx. bronchial asthma, chronic ALLERGIC rhinitis, edema legs, hx. superficial thrombophlebitis, spinal stenosis, scoliosis of the spine, takes atenolol for palpitations, hiatal hernia, degenerative disc disease, peripheral neuropathy, diet controlled diabetic, fell last Sunday & fx. nose, possibly hairline fx. 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 Mother Family Medical History: Cancer General Exam General appearance: alert, in no apparent distress Head exam: Present: atraumatic, normocephalic, normal inspection Eye exam: Present: normal appearance, PERRL, EOMI. Absent: scleral icterus, conjunctival injection, periorbital swelling ENT exam: Present: normal exam, mucous membranes moist Neck exam: Present: normal inspection. Absent: tenderness, meningismus, lymphadenopathy Respiratory exam: Present: normal lung sounds bilaterally. Absent: respiratory distress, wheezes, rales, rhonchi, stridor Cardiovascular Exam: Present: regular rate, normal rhythm, normal heart sounds. Absent: systolic murmur, diastolic murmur, rubs, gallop, clicks GI/Abdominal exam: Present: soft, normal bowel sounds. Absent: distended, tenderness, guarding, rebound, rigid Extremities exam: Present: normal inspection, full ROM, normal capillary refill. Absent: tenderness, pedal edema, joint swelling, calf tenderness Back exam: Present: normal inspection Neurological exam: Present: alert, oriented X3, CN II-XII intact Psychiatric exam: Present: normal affect, normal mood Skin exam: Present: warm, dry, intact, normal color. Absent: rash Course Vital Signs 03/13/24 03/13/24 03/13/24 11:12 11:59 12:42 Temperature 98.1 F Pulse Rate 68 68 69 Respiratory 16 20 20 Rate Blood Pressure 146/87 135/74 143/80 O2 Sat by Pulse 100 97 Oximetry 03/13/24 03/13/24 03/13/24 13:00 13:02 13:17 Temperature Pulse Rate 70 73 67 Respiratory 18 18 18 Rate Blood Pressure 149/80 150/82 O2 Sat by Pulse 98 98 98 Oximetry 03/13/24 03/13/24 03/13/24 13:47 14:00 14:27 Temperature Pulse Rate 68 68 80 Respiratory 18 18 18 Rate Blood Pressure 146/74 O2 Sat by Pulse 97 98 98 Oximetry 03/13/24 03/13/24 03/13/24 15:27 16:27 17:27 Temperature 97.3 F L Pulse Rate 73 77 71 Respiratory 18 18 18 Rate Blood Pressure 150/76 146/98 148/104 O2 Sat by Pulse 97 98 Oximetry 03/13/24 03/13/24 03/13/24 18:00 19:30 23:00 Temperature Pulse Rate 76 79 75 Respiratory 18 21 14 Rate Blood Pressure 132/92 133/81 O2 Sat by Pulse 97 97 Oximetry Medical Decision Making - Medical Decision Making Was pt. sent in by a medical professional or institution (, PA, CARPENTER/LABOR, urgent care, hospital, or correction...) When possible be specific @ -No Did you speak to anyone other than the patient for history (EMS, parent, family, police, friend...)? What history was obtained from this source @ -No Did you review nursing and triage notes (agree or disagree)? Why? @ -I reviewed and agree with nursing and triage notes Were old charts reviewed (outside hosp., previous admission, EMS record, old EKG, old radiological studies, urgent care reports/EKG's, correction records)? Report findings @ -No old charts were reviewed Differential Diagnosis (chest pain, altered mental status, abdominal pain women, abdominal pain men, vaginal bleeding, weakness, fever, dyspnea, syncope, head ache, dizziness, GI bleed, back pain, seizure, CVA, palpatations, mental health, musculoskeletal)? @ -Differential CVA Ischemic stroke, hemorrhagic stroke, brain tumor, atypical migraine, Wernicke's encephalopathy, seizure, multiple sclerosis, meningitis, encephalitis, hypoglycemia, Guillain-Hampton, electrolytes disturbance, myasthenia gravis.... This is not meant to be an all-inclusive list EKG interpreted by me (3pts min.). @ -Yes and demonstrates sinus rhythm with a rate of 65. WI interval 173. QRS 86. QTc of 406. No acute ST segment elevations or depressions X-rays interpreted by me (1pt min.). @ -None done CT interpreted by me (1pt min.). @ -Yes and demonstrates no acute process U/S interpreted by me (1pt. min.). @ -None done What testing was considered but not performed or refused? (CT, X-rays, U/S, labs)? Why? @ -None What meds were considered but not given or refused? Why? @ -None Did you discuss the management of the patient with other professionals (professionals i.e. , PA, CARPENTER/LABOR, lab, RT, psych nurse, social sciences department chair, postulant, teacher, senior loan officer, case advocate)? Give summary @ -Spoke with sound physicians for admission Was smoking cessation discussed for >3mins.? @ -No Was critical care preformed (if so, how long)? @ -No Were there social determinants of health that impacted care today? How? (Homelessness, low income, unemployed, alcoholism, drug addiction, transportation, low edu. Level, literacy, decrease access to med. care, halfway, rehab)? @ -No Was there de-escalation of care discussed even if they declined (Discuss DNR or withdrawal of care, Hospice)? DNR status @ -No What co-morbidities impacted this encounter? (DM, HTN, Smoking, COPD, CAD, Cancer, CVA, ARF, Chemo, Hep., AIDS, mental health diagnosis, sleep apnea, morbid obesity)? @ -None Was patient admitted / discharged? Hospital course, mention meds given and route, prescriptions, significant lab abnormalities, going to OR and other pertinent info. @ -Upon arrival patient seen and evaluated in bed 4. Thorough history and physical exam was performed. IV access was established. Laboratory studies are conducted. Patient goes for CT of the brain. Results are discussed with the patient. She is asymptomatic at this time however does have symptoms of TIA. Recommended admission. Agreeable to this. Spoke with sound physicians for admission Undiagnosed new problem with uncertain prognosis? @ -Yes Drug Therapy requiring intensive monitoring for toxicity (Heparin, Nitro, Insulin, Cardizem)? @ -No Were any procedures done? @ -No Diagnosis/symptom? @Acute transient expressive aphasia, suspect TIA Acute, or Chronic, or Acute on Chronic? @ -Acute Uncomplicated (without systemic symptoms) or Complicated (systemic symptoms)? @ -Complicated Side effects of treatment? @ -No Exacerbation, Progression, or Severe Exacerbation? @ -No Poses a threat to life or bodily function? How? (Chest pain, USA, PA, pneumonia, PE, COPD, DKA, ARF, appy, cholecystitis, CVA, Diverticulitis, Homicidal, Suicidal, threat to staff... and all critical care pts) @ -No - Lab Data Result diagrams: 03/13/24 11:48 03/13/24 11:48 Lab Results 03/13/24 03/13/24 03/13/24 Range/Units 11:48 11:48 11:48 WBC 8.3 (3.8-10.6) k/uL RBC 4.65 (3.80-5.40) m/uL Hgb 14.5 (11.4-16.0) gm/dL Hct 44.4 (34.0-46.0) % MCV 95.4 (80.0-100.0) fL MCH 31.1 (25.0-35.0) pg MCHC 32.6 (31.0-37.0) g/dL RDW 12.9 (11.5-15.5) % Plt Count 240 (150-450) k/uL MPV 7.0 Neutrophils % 62 % Lymphocytes % 24 % Monocytes % 8 % Eosinophils % 3 % Basophils % 1 % Neutrophils # 5.2 (1.3-7.7) k/uL Lymphocytes # 2.0 (1.0-4.8) k/uL Monocytes # 0.7 (0-1.0) k/uL Eosinophils # 0.2 (0-0.7) k/uL Basophils # 0.0 (0-0.2) k/uL PT 11.2 (10.0-12.5) sec INR 1.0 (<1.2) APTT 30.9 H (22.0-30.0) sec Sodium 138 (137-145) mmol/L Potassium 4.0 (3.5-5.1) mmol/L Chloride 106 (98-107) mmol/L Carbon Dioxide 27 (22-30) mmol/L Anion Gap 5 mmol/L BUN 16 (7-17) mg/dL Creatinine 0.79 (0.52-1.04) mg/dL Est GFR (CKD-EPI)AfAm 84 (>60 ml/min/1.73 sqM) Est GFR (CKD-EPI)NonAf 73 (>60 ml/min/1.73 sqM) Glucose 87 (74-99) mg/dL Estimated Ave Glu mg/dL mg/dL Hemoglobin A1c (<=6.0) % Calcium 9.8 (8.4-10.2) mg/dL Total Bilirubin 0.7 (0.2-1.3) mg/dL AST 34 (14-36) U/L ALT 21 (4-34) U/L Alkaline Phosphatase 87 (38-126) U/L Creatine Kinase 94 (30-135) U/L Troponin I (0.000-0.034) ng/mL Total Protein 6.6 (6.3-8.2) g/dL Albumin 3.8 (3.5-5.0) g/dL Triglycerides (0.00-149.00) mg/dL Cholesterol (0.00-200.00) mg/dL LDL Cholesterol, Calc (0.0-131.0) mg/dL VLDL Cholesterol, Calc (5.00-40.00) mg/dL HDL Cholesterol (40.00-60.00) mg/dL Cholesterol/HDL Ratio Ratio 03/13/24 03/13/24 03/13/24 Range/Units 11:48 11:48 11:48 WBC (3.8-10.6) k/uL RBC (3.80-5.40) m/uL Hgb (11.4-16.0) gm/dL Hct (34.0-46.0) % MCV (80.0-100.0) fL MCH (25.0-35.0) pg MCHC (31.0-37.0) g/dL RDW (11.5-15.5) % Plt Count (150-450) k/uL MPV Neutrophils % % Lymphocytes % % Monocytes % % Eosinophils % % Basophils % % Neutrophils # (1.3-7.7) k/uL Lymphocytes # (1.0-4.8) k/uL Monocytes # (0-1.0) k/uL Eosinophils # (0-0.7) k/uL Basophils # (0-0.2) k/uL PT (10.0-12.5) sec INR (<1.2) APTT (22.0-30.0) sec Sodium (137-145) mmol/L Potassium (3.5-5.1) mmol/L Chloride (98-107) mmol/L Carbon Dioxide (22-30) mmol/L Anion Gap mmol/L BUN (7-17) mg/dL Creatinine (0.52-1.04) mg/dL Est GFR (CKD-EPI)AfAm (>60 ml/min/1.73 sqM) Est GFR (CKD-EPI)NonAf (>60 ml/min/1.73 sqM) Glucose (74-99) mg/dL Estimated Ave Glu mg/dL 163 mg/dL Hemoglobin A1c 7.3 H (<=6.0) % Calcium (8.4-10.2) mg/dL Total Bilirubin (0.2-1.3) mg/dL AST (14-36) U/L ALT (4-34) U/L Alkaline Phosphatase (38-126) U/L Creatine Kinase (30-135) U/L Troponin I <0.012 (0.000-0.034) ng/mL Total Protein (6.3-8.2) g/dL Albumin (3.5-5.0) g/dL Triglycerides 52.80 (0.00-149.00) mg/dL Cholesterol 157.00 (0.00-200.00) mg/dL LDL Cholesterol, Calc 62.7 (0.0-131.0) mg/dL VLDL Cholesterol, Calc 10.56 (5.00-40.00) mg/dL HDL Cholesterol 83.70 H (40.00-60.00) mg/dL Cholesterol/HDL Ratio 1.88 Ratio Disposition Clinical Impression: Expressive aphasia, TIA (transient ischemic attack) Disposition: ADMITTED IP TO THIS [facility] Condition: Stable Is patient prescribed a controlled substance at d/c from ED?: No Time of Disposition: 14:25 Decision to Admit Reason: Admit from EC Decision Date: 03/13/24 Decision Time: 14:25
[2024-03-13] MEDS: ASPIRIN 325 MG TAB PO STA (14:44)
--- NOTE | 2024-03-13 17:46 | P.HPIM ---
History of Present Illness H&P Date: 03/13/24 79 year old F with PMH of DVT, Asthma, Tachycardia?, Dyslipidemia presents to the ED. Patient reports difficulty finding words that started around 10:30AM. She denies any facial droop, slurred speech, numbness/weakness/tingling of the extremities. She does report an unstable gait but states this has been ongoing for the past 2 years. These symptoms prompted her to come to the ED. In the ED she underwent extensive evaluation. BP 146/87, HR 68, RR 16, T 98.1F, 100% on RA. CBC, Coag panel, CMP significant for APTT 30.9. Troponin < 0.012. EKG sinus rhythm with no ST T wave changes. CXR shows mild cardiomegaly with diffuse interstitial prominence. CT brain negative. CTA head and neck no evidence of high grade stenosis. Patient is admitted for CVA workup. General: non toxic, no distress, appears at stated age Derm: warm, dry Head: atraumatic, normocephalic, symmetric Eyes: EOMI, no lid lag, anicteric sclera Mouth: no lip lesion, mucus membranes moist Cardiovascular: S1 S2 reg. No murmurs, rubs, gallops Lungs: Clear to auscultation bilaterally, no accessory muscle use Ext: no gross muscle atrophy, no edema, no contractures Neuro: no focal neuro deficits, CN II-XII grossly intact Psych: Alert, oriented, appropriate affect Based on my assessment of this patient, this patient meets a high complexity level of care. Aphasia: Rule out CVA. CT brain and CTA head and neck as above. Obtain Echo, MRI brain, A1c, Lipid panel. Telemetry monitoring. Advanced neurochecks. ASA 81 mg PO QD. Increase Crestor to 20 mg PO QHS. Consult Neurology. history of DVT: Diagnosed in 11/2023. Eliquis 5 mg PO BID. Tachycardia: Atenolol 25 mg PO QD. Patient denies history of A-Fib. Dyslipidemia: Crestor as above. CODE STATUS: FULL CODE. DVT Prophylaxis: Eliquis GI Prophylaxis: Protonix PO Designated medical POA if patient is not able to make medical decisions for themselves: . I have reviewed the following customer care consultant notes: ER note. I have reviewed the results of the following tests: As above. I have ordered the following tests: As above. I have discussed the care of this patient with the following independent historian: I have independently interpreted the following test below: EKG. I have discussed the management of this patient with the following physician: Dr. Anthony. Past Medical History Past Medical History: Asthma, Diabetes Mellitus, Fibromyalgia, GERD/Reflux, Hearing Disorder / Deafness, Hyperlipidemia, Osteoarthritis (OA), Pneumonia, Skin Disorder Additional Past Medical History / Comment(s): Hx. bronchial asthma, chronic ALLERGIC rhinitis, edema legs, hx. superficial thrombophlebitis, spinal stenosis, scoliosis of the spine, takes atenolol for palpitations, hiatal hernia, degenerative disc disease, peripheral neuropathy, diet controlled diabetic, fell last Sunday & fx. nose, possibly hairline fx. left knee History of Any Multi-Drug Resistant Organisms: None Reported Past Surgical History: Back Surgery, Breast Surgery, Hysterectomy, Joint Replace ment, Orthopedic Surgery, Tonsillectomy Additional Past Surgical History / Comment(s): breast biopsy-neg, Amaya's neuroma brennen feet removed,discectomy, rt ankle surgery, sinus surgery, brennen cataracts, left hip replacement, partial hysterectomy-still hs ovaries, bunionectomy, adenoma removed from parathyroid Past Anesthesia/Blood Transfusion Reactions: No Reported Reaction Additional Past Anesthesia/Blood Transfusion Reaction / Comment(s): "doesn't take much", difficult IV start Past Psychological History: Anxiety Smoking Status: Never smoker Past Alcohol Use History: Occasional Past Drug Use History: None Reported - Past Family History Father Family Medical History: Dementia, Diabetes Mellitus, Hypertension Additional Family Medical History / Comment(s): Enlarged heart, obesity. Mother Family Medical History: Cancer Medications and Allergies Home Medications Medication Instructions Recorded Confirmed Type Glucosam/Jaren-Msm1/C/Robert/Bosw 1 tab PO BID 01/25/15 03/13/24 History [Glucosamine-Chondroitin Tablet] Tolterodine [Detrol] 2 mg PO BID 01/25/15 03/13/24 History Vitamin B Complex 1 cap PO DAILY 01/25/15 03/13/24 History Aspirin [Adult Low Dose Aspirin EC] 81 mg PO DAILY 01/11/16 03/13/24 History Montelukast Sodium [Singulair] 10 mg PO HS 06/26/17 03/13/24 History atenoloL 25 mg PO DAILY 06/26/17 03/13/24 History Acetaminophen [Tylenol] 500 mg PO Q4-6H PRN 01/14/21 03/13/24 History Calcium Carbonate/Vitamin D3 1 tab PO DAILY 01/14/21 03/13/24 History [Calcium 500 mg-Vit D3 5 mcg (200 Unit)] Fluticasone Propion/Salmeterol 1 puff INHALATION RT-BID 01/14/21 03/13/24 History [Wixela 500-50 Inhub] Cetirizine HCl [Zyrtec] 10 mg PO DAILY 11/16/21 03/13/24 History Cyanocobalamin (Vitamin B-12) 1,000 mcg PO DAILY 11/16/21 03/13/24 History [Vitamin B-12] Rosuvastatin Calcium [Crestor] 5 mg PO TUSA 11/16/21 03/13/24 History Apixaban [Eliquis] 5 mg PO BID 03/13/24 03/13/24 History Cbd Gummy 1 tab PO HS 03/13/24 03/13/24 History Cholecalciferol [Vitamin D3 (125 125 mcg PO DAILY 03/13/24 03/13/24 History Mcg = 5000 Iu)] Cranberry Fruit Extract [Cranberry] 500 mg PO DAILY 03/13/24 03/13/24 History Cyclobenzaprine [Flexeril] 10 mg PO TID PRN 03/13/24 03/13/24 History HYDROcodone/APAP 7.5-325MG [[place] 1 tab PO Q6H PRN 03/13/24 03/13/24 History 7.5-325] Multivitamins, Thera [Multivitamin 1 tab PO DAILY 03/13/24 03/13/24 History (formulary)] Omeprazole [PriLOSEC] 20 mg PO DAILY 03/13/24 03/13/24 History traMADol HCL 50 mg PO Q4-6H PRN 03/13/24 03/13/24 History Allergies Allergy/AdvReac Type Severity Reaction Status Date / Time amoxicillin Allergy itchy Verified 03/13/24 13:49 throat Sulfa (Sulfonamide Allergy Unknown Verified 03/13/24 13:49 Antibiotics) sulfamethoxazole Allergy Rash/Hives Verified 03/13/24 13:49 [From Bactrim] trimethoprim [From Bactrim] Allergy Rash/Hives Verified 03/13/24 13:49 gabapentin AdvReac dizzy Verified 03/13/24 13:49 lisinopril AdvReac Cough Verified 03/13/24 13:49 [id number]-AtU Reductase AdvReac leg Verified 03/13/24 13:49 Inhibitor swelling & pain Physical Exam Vitals: Vital Signs Temp Pulse Resp BP Pulse Ox 03/13/24 14:27 80 18 98 03/13/24 14:00 68 18 98 03/13/24 13:47 68 18 146/74 97 03/13/24 13:17 67 18 98 03/13/24 13:02 73 18 150/82 98 03/13/24 13:00 70 18 149/80 98 03/13/24 12:42 69 20 143/80 97 03/13/24 11:59 68 20 135/74 03/13/24 11:12 98.1 F 68 16 146/87 100 Intake and Output 03/13/24 03/13/24 03/13/24 06:59 14:59 22:59 Other: Weight 91.943 kg Results CBC & Chem 7: 03/13/24 11:48 03/13/24 11:48 Labs: Abnormal Lab Results - Last 24 Hours (Table) 03/13/24 Range/Units 11:48 APTT 30.9 H (22.0-30.0) sec
[2024-03-13] MEDS: ATORVASTATIN 40 MG TAB PO SCH (20:36)
[2024-03-13] MEDS: APIXABAN 5 MG TAB PO SCH (20:36)
[2024-03-13] MEDS: MONTELUKAST 10 MG TAB PO SCH (20:37)
[2024-03-14] MEDS: PANTOPRAZOLE 40 MG TABLET PO SCH (06:02)
[2024-03-14] MEDS ORDERED: ASPIRIN 325 MG TAB PO SCH (09:00)
[2024-03-14] MEDS: ASPIRIN 81 MG PO SCH (09:09)
[2024-03-14] MEDS: atenoloL 25 MG TAB PO SCH (09:09)
[2024-03-14] MEDS: LORATADINE 10 MG TAB PO SCH (09:09)
[2024-03-14] MEDS: OXYBUTYNIN 10 MG TAB.ER.24 PO SCH (09:09)
[2024-03-14 09:31] LABS: Chol/HDL Ratio 1.88 Ratio; LDL Cholesterol,Calculated 62.7 mg/dL (0.0-131.0); VLDL Calculation 10.56 mg/dL (5.00-40.00)
--- NOTE | 2024-03-14 12:44 | MR ---
EXAMINATION TYPE: MR brain wo con DATE OF EXAM: 03/14/2024 8:10 AM COMPARISON: CT brain 03/13/2024, CT brain C-spine 05/14/2021, MRI brain 04/23/2018. CLINICAL INDICATION:Female, 79 years old with history of CVA; PHH, TECHNIQUE: Multi planar, multi sequence imaging was performed through the brain. No gadolinium was gi reymundo. FINDINGS: The butt-white junctions, ventricular system, and cisterns appear unremarkable. Patchy and confluent areas of high T2/FLAIR signal intensity are seen within the periventricular and subcortical white ma tter. Increase from prior MRI. Midline structures show no abnormality. Diffusion-weighted imaging catarina ws no evidence of restricted diffusion. The susceptibility weighted images demonstrate sulci blooming artifact within the left lateral frontal lobe, right frontal lobe medially, and right prior lobe lat erally. No corresponding T1 hyperintensity. Consistent with prior microhemorrhage. Age-appropriate ce rebral volume loss. The bone marrow signal is within normal limits. Hyperostosis frontalis. The paranasal sinuses are unr emarkable. Bilateral aphakia. IMPRESSION: 1. No evidence of intracranial mass or acute/subacute infarct. 2. Progression of nonspecific white matter changes, likely secondary to small vessel ischemic disease . [facility], , 03/14/2024 12:41 PM
[2024-03-14] MEDS: LISINOPRIL-HCTZ 10-12.5 MG 1 EACH TAB PO SCH (12:58)
--- NOTE | 2024-03-14 13:37 | P.DS ---
Providers Date of admission: 03/13/24 14:27 Expected date of discharge: 03/14/24 Attending physician: Alessia Shetty MD Consults: 03/13/24 14:26 Consult Physician Urgent Consulting Provider: Ata Vuong Consult Reason/Comments: expressive aphasia, possible tia Do you want consulting provider notified?: Yes Primary care physician: [facility] Course: 79 year old F with PMH of DVT, Asthma, Tachycardia?, Dyslipidemia presents to the ED. Patient reports difficulty finding words that started around 10:30AM. She denies any facial droop, slurred speech, numbness/weakness/tingling of the extremities. She does report an unstable gait but states this has been ongoing for the past 2 years. These symptoms prompted her to come to the ED. In the ED she underwent extensive evaluation. BP 146/87, HR 68, RR 16, T 98.1F, 100% on RA. CBC, Coag panel, CMP significant for APTT 30.9. Troponin < 0.012. EKG sinus rhythm with no ST T wave changes. CXR shows mild cardiomegaly with diffuse interstitial prominence. CT brain negative. CTA head and neck no evidence of high grade stenosis. Patient is admitted for CVA workup. 03/14 Patient was seen and examined. Speech back to normal. No complaints. A1c 7.3. Lipid panel T. Chol 157, LDL 62.7. MRI brain no infarct, nonspecific white matter changes. Echo is pending. Discussed with Dr. Vuong, switch ASA to Plavix. Plans for discharge home today pending Echo results. General: non toxic, no distress, appears at stated age Derm: warm, dry Head: atraumatic, normocephalic, symmetric Eyes: EOMI, no lid lag, anicteric sclera Mouth: no lip lesion, mucus membranes moist Cardiovascular: S1 S2 reg. No murmurs, rubs, gallops Lungs: Clear to auscultation bilaterally, no accessory muscle use Ext: no gross muscle atrophy, no edema, no contractures Neuro: no focal neuro deficits Psych: Alert, oriented, appropriate affect Discharge Diagnosis: TIA: Rule out CVA. CT brain, MRI brain, A1c, Lipid panel and CTA head and neck as above. Obtain Echo. Telemetry monitoring. Advanced neurochecks. ASA switched to Plavix 75 mg PO QD. Increase Crestor to 20 mg PO QHS. Neurology on board. history of DVT: Diagnosed in 11/2023. Eliquis 5 mg PO BID. Hypertension: Atenolol 25 mg PO QD. Start HCTZ 25 mg PO QD and Losartan 50 mg PO QD. Patient denies history of A-Fib. Dyslipidemia: Crestor as above. CODE STATUS: FULL CODE. DVT Prophylaxis: Eliquis GI Prophylaxis: Protonix PO Designated medical POA if patient is not able to make medical decisions for themselves: . I have reviewed the following contact center consultant notes: I have reviewed the results of the following tests: A1c. Lipid panel. MRI brain. I have ordered the following tests: Pending: Echo I have discussed the care of this patient with the following independent his radha: JOSHUA. I have independently interpreted the following test below: I have discussed the management of this patient with the following physician: Dr. Vuong. Patient Condition at Discharge: Stable Plan - Discharge Summary New Discharge Prescriptions: No Action Tolterodine [Detrol] 2 mg PO BID Vitamin B Complex 1 cap PO DAILY Glucosam/Jaren-Msm1/C/Robert/Bosw [Glucosamine-Chondroitin Tablet] 1 tab PO BID Aspirin [Adult Low Dose Aspirin EC] 81 mg PO DAILY Montelukast Sodium [Singulair] 10 mg PO HS atenoloL 25 mg PO DAILY Acetaminophen [Tylenol] 500 mg PO Q4-6H PRN PRN Reason: Pain Rosuvastatin Calcium [Crestor] 5 mg PO TUSA Cyanocobalamin (Vitamin B-12) [Vitamin B-12] 1,000 mcg PO DAILY Cyclobenzaprine [Flexeril] 10 mg PO TID PRN PRN Reason: Muscle Spasm Multivitamins, Thera [Multivitamin (formulary)] 1 tab PO DAILY Cholecalciferol [Vitamin D3 (125 Mcg = 5000 Iu)] 125 mcg PO DAILY Cbd Gummy 1 tab PO HS Fluticasone Propion/Salmeterol [Wixela 500-50 Inhub] 1 puff INHALATION RT-BID Calcium Carbonate/Vitamin D3 [Calcium 500 mg-Vit D3 5 mcg (200 Unit)] 1 tab PO DAILY Cetirizine HCl [Zyrtec] 10 mg PO DAILY Omeprazole [PriLOSEC] 20 mg PO DAILY traMADol HCL 50 mg PO Q4-6H PRN PRN Reason: Pain HYDROcodone/APAP 7.5-325MG [Jones 7.5-325] 1 tab PO Q6H PRN PRN Reason: Pain Apixaban [Eliquis] 5 mg PO BID Cranberry Fruit Extract [Cranberry] 500 mg PO DAILY Discharge Medication List Glucosam/Jaren-Msm1/C/Robert/Bosw [Glucosamine-Chondroitin Tablet] 1 tab PO BID 01/25/15 [History] Tolterodine [Detrol] 2 mg PO BID 01/25/15 [History] Vitamin B Complex 1 cap PO DAILY 01/25/15 [History] Aspirin [Adult Low Dose Aspirin EC] 81 mg PO DAILY 01/11/16 [History] Montelukast Sodium [Singulair] 10 mg PO HS 06/26/17 [History] atenoloL 25 mg PO DAILY 06/26/17 [History] Acetaminophen [Tylenol] 500 mg PO Q4-6H PRN 01/14/21 [History] Calcium Carbonate/Vitamin D3 [Calcium 500 mg-Vit D3 5 mcg (200 Unit)] 1 tab PO DAILY 01/14/21 [History] Fluticasone Propion/Salmeterol [Wixela 500-50 Inhub] 1 puff INHALATION RT-BID 01/14/21 [History] Cetirizine HCl [Zyrtec] 10 mg PO DAILY 11/16/21 [History] Cyanocobalamin (Vitamin B-12) [Vitamin B-12] 1,000 mcg PO DAILY 11/16/21 [History] Rosuvastatin Calcium [Crestor] 5 mg PO TUSA 11/16/21 [History] Apixaban [Eliquis] 5 mg PO BID 03/13/24 [History] Cbd Gummy 1 tab PO HS 03/13/24 [History] Cholecalciferol [Vitamin D3 (125 Mcg = 5000 Iu)] 125 mcg PO DAILY 03/13/24 [History] Cranberry Fruit Extract [Cranberry] 500 mg PO DAILY 03/13/24 [History] Cyclobenzaprine [Flexeril] 10 mg PO TID PRN 03/13/24 [History] HYDROcodone/APAP 7.5-325MG [Jones 7.5-325] 1 tab PO Q6H PRN 03/13/24 [History] Multivitamins, Thera [Multivitamin (formulary)] 1 tab PO DAILY 03/13/24 [History] Omeprazole [PriLOSEC] 20 mg PO DAILY 03/13/24 [History] traMADol HCL 50 mg PO Q4-6H PRN 03/13/24 [History] Follow up Appointment(s)/Referral(s): Vira Torres MD [Primary Care Provider] - 1-2 days
[2024-03-14 15:42] VITALS: TEMP 97.6
--- NOTE | 2024-03-14 15:51 | P.CNNES ---
History of Present Illness Consult date: 03/14/24 Requesting physician: Edwina Anthony Reason for Consult: expressive aphasia, possible tia History of Present Illness: This is a 79-year-old woman who presented emergency department because of speech difficulty. She stated that yesterday around 10:00 in the morning she had difficulty getting her words out even though she knew what she wanted to say and her speech was slow. She denies any focal weakness, numbness, visual disturbance, difficulty swallowing. Her episode lasted for 20 minutes. She denies any history of stroke in the past. Denies any TIA. Denies history of atrial fibrillation. Seems the patient has a history of blood clot and she is on Eliquis. Patient is also on aspirin 81 mg daily. She also has underlying history of diabetes. She feels back to baseline. Patient denies any history of multiple sclerosis in the past. Some of the workup during this hospital visit consisted of: Initial serum glucose is 87 Hemoglobin A1c 7.3 Lipid panel is triglyceride 52, cholesterol is 157, LDL is 62 and HDL is 83. CT of the head is reported as no acute bleed or mass effect. Marked chronic ischemic white matter demyelination. Mild age-appropriate atrophy. I personally reviewed the CT and I agree there is no acute or subacute stroke. She does have marked white matter changes. CT angiography of the head and neck is reported as no evidence of dissection of cervical internal carotid artery or vertebral artery or any evidence of significant stenosis at the carotid bifurcation. No evidence of high-grade stenosis or intracranial aneurysm. Review of Systems Positive and negative as per HPI. Past Medical History Past Medical History: Asthma, Diabetes Mellitus, Fibromyalgia, GERD/Reflux, Hearing Disorder / Deafness, Hyperlipidemia, Osteoarthritis (OA), Pneumonia, Skin Disorder Additional Past Medical History / Comment(s): Hx. bronchial asthma, chronic ALLERGIC rhinitis, edema legs, hx. superficial thrombophlebitis, spinal stenosis, scoliosis of the spine, takes atenolol for palpitations, hiatal hernia, degenerative disc disease, peripheral neuropathy, diet controlled diabetic, fell last Sunday & fx. nose, possibly hairline fx. 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 Mother Family Medical History: Cancer Medications and Allergies Home Medications Medication Instructions Recorded Confirmed Type Glucosam/Jaren-Msm1/C/Robert/Bosw 1 tab PO BID 01/25/15 03/13/24 History [Glucosamine-Chondroitin Tablet] Tolterodine [Detrol] 2 mg PO BID 01/25/15 03/13/24 History Vitamin B Complex 1 cap PO DAILY 01/25/15 03/13/24 History Aspirin [Adult Low Dose Aspirin EC] 81 mg PO DAILY 01/11/16 03/13/24 History Montelukast Sodium [Singulair] 10 mg PO HS 06/26/17 03/13/24 History atenoloL 25 mg PO DAILY 06/26/17 03/13/24 History Acetaminophen [Tylenol] 500 mg PO Q4-6H PRN 01/14/21 03/13/24 History Calcium Carbonate/Vitamin D3 1 tab PO DAILY 01/14/21 03/13/24 History [Calcium 500 mg-Vit D3 5 mcg (200 Unit)] Fluticasone Propion/Salmeterol 1 puff INHALATION RT-BID 01/14/21 03/13/24 Hist ory [Wixela 500-50 Inhub] Cetirizine HCl [Zyrtec] 10 mg PO DAILY 11/16/21 03/13/24 History Cyanocobalamin (Vitamin B-12) 1,000 mcg PO DAILY 11/16/21 03/13/24 History [Vitamin B-12] Rosuvastatin Calcium [Crestor] 5 mg PO TUSA 11/16/21 03/13/24 History Apixaban [Eliquis] 5 mg PO BID 03/13/24 03/13/24 History Cbd Gummy 1 tab PO HS 03/13/24 03/13/24 History Cholecalciferol [Vitamin D3 (125 125 mcg PO DAILY 03/13/24 03/13/24 History Mcg = 5000 Iu)] Cranberry Fruit Extract [Cranberry] 500 mg PO DAILY 03/13/24 03/13/24 History Cyclobenzaprine [Flexeril] 10 mg PO TID PRN 03/13/24 03/13/24 History HYDROcodone/APAP 7.5-325MG [[place] 1 tab PO Q6H PRN 03/13/24 03/13/24 History 7.5-325] Multivitamins, Thera [Multivitamin 1 tab PO DAILY 03/13/24 03/13/24 History (formulary)] Omeprazole [PriLOSEC] 20 mg PO DAILY 03/13/24 03/13/24 History traMADol HCL 50 mg PO Q4-6H PRN 03/13/24 03/13/24 History Allergies Allergy/AdvReac Type Severity Reaction Status Date / Time amoxicillin Allergy itchy Verified 03/13/24 13:49 throat Sulfa (Sulfonamide Allergy Unknown Verified 03/13/24 13:49 Antibiotics) sulfamethoxazole Allergy Rash/Hives Verified 03/13/24 13:49 [From Bactrim] trimethoprim [From Bactrim] Allergy Rash/Hives Verified 03/13/24 13:49 gabapentin AdvReac dizzy Verified 03/13/24 13:49 lisinopril AdvReac Cough Verified 03/13/24 13:49 [id number] Reductase AdvReac leg Verified 03/13/24 13:49 Inhibitor swelling & pain Physical Examination - Vital Signs Vital Signs: Vital Signs Temp Pulse Pulse Resp BP BP BP 03/14/24 07:00 97.4 F L 83 20 173/80 03/14/24 02:00 97.8 F 86 15 135/78 03/13/24 23:00 75 14 133/81 03/13/24 19:30 79 21 132/92 03/13/24 18:00 76 18 03/13/24 17:27 97.3 F L 71 18 148/104 03/13/24 16:27 77 18 146/98 Pulse Ox 03/14/24 07:00 99 03/14/24 02:00 97 03/13/24 23:00 97 03/13/24 19:30 97 10/10/24 18:00 03/13/24 17:27 98 03/13/24 16:27 Intake and Output 03/14/24 03/14/24 03/14/24 06:59 14:59 22:59 Intake Total 450 240 Balance 450 240 Intake: Oral 450 240 Other: Voiding Method Toilet Toilet # Voids 4 GENERAL: The patient is lying in bed and is not in acute distress. NEUROLOGICAL: Higher mental function: The patient is awake, alert, oriented to self, place and time. Patient is following commands. No aphasia and no neglect. Cranial nerves: The pupils are round, equal and reactive to light and accommodation. Visual quintana are full to confrontation throughout. Extraocular movement is intact no nystagmus is noted. Facial sensation is normal to touch throughout. The facial strength is normal throughout. Hearing is moderately to severely decreased bilaterally to hand rub. Tongue is midline and moved [id number] without any difficulty. No dysarthria is noted. Shoulder shrug is normal bilaterally. Motor: The strength is 5 over 5 throughout. Normal tone and bulk. Cerebellum: Normal finger to nose heel to chin bilaterally. Sensation: Sensation is normal to touch throughout. Reflexes (right/left): 2+ uppers while lowers deferred because of patient cooperation since feels pain. Plantars are mute bilaterally. Results - Laboratory Findings CBC and BMP: 03/13/24 11:48 03/13/24 11:48 Abnormal Lab Findings: Abnormal Labs 03/13/24 03/13/24 03/13/24 11:48 11:48 11:48 APTT 30.9 H Hemoglobin A1c 7.3 H HDL Cholesterol 83.70 H Assessment and Plan Assessment: This is a 79-year-old woman who present emergency department because of difficulty getting her words out yesterday at 10 AM and lasted for 20 minutes. Patient has a history of blood clot and she is on Eliquis as well as she is on aspirin 81 mg daily. Likely transient ischemic attack. Patient is back to baseline. No IV thrombolytics since the patient is on Eliquis as well as patient's symptoms resolved and the risk outweigh the benefit. Diabetes mellitus and her recent hemoglobin A1c is 7.3 History of blood clot and patient is on Eliquis Hard of hearing Plan: Patient had MRI of the brain and I personally reviewed it and it seems unremarkable for any acute or subacute stroke. Pending final report 2D echo was ordered and is pending Patient is on Eliquis 5 mg twice daily for her blood clot as well as on home aspirin 81 mg daily. In the ED she was given aspirin 325 daily. Her aspirin was discontinued and was placed on Plavix 75 mg daily by the primary team and I agree with that. Will defer the long-term use of Eliquis to her primary physician regarding her blood clot she stated she had 1 after her knee surgery but in the past that she had a questionable blood clot she thinks but unsure and I will defer that to her primary care physician regarding long-term management. Patient is on Lipitor 40 mg nightly for that sufficient for secondary stroke prophylaxis Continue neurochecks Cardiac monitoring PT, OT and FINANCIAL WRITER are consulted. Defer the rest of the medical management to primary and other specialist For DVT prophylaxis the patient is on Eliquis Discharge the patient needs to follow-up with a neurologist as an outpatient within 2 to 3 weeks. Plan discussed with the patient, primary team as well as her nurse. Thank you for the consultation Time with Patient: Greater than 30
[2024-03-14 16:49] VITALS: BP 117/67; PULSE 65; RESP 18
--- NOTE | 2024-03-14 17:56 | CA ---
Transthoracic Echo Report Name: Annita Brannon Age: 79 Gender: F : 1945 Exam Date: 03/14/2024 13:57 Exam Location: [facility] Ht (in): 66 Wt (lb): 202 Ordering Physician: Alessia Shetty MD Attending/Referring Phys: Music Therapist Patti Garcia RDCS Procedure CPT: Indications: CVA Cardiac Hx: Technical Quality: Fair Contrast 1: Definity Total Dose (mL): 2 Contrast 2: Total Dose (mL): MEASUREMENTS (Male / Female) Normal Values 2D ECHO LV Diastolic Diameter PLAX 4.1 cm 4.2 - 5.9 / 3.9 - 5.3 cm LV Systolic Diameter PLAX 2.1 cm IVS Diastolic Thickness 1.3 cm 0.6 - 1.0 / 0.6 - 0.9 cm LVPW Diastolic Thickness 1.3 cm 0.6 - 1.0 / 0.6 - 0.9 cm LV Relative Wall Thickness 0.6 RV Internal Dim ED PLAX 2.0 cm LA Systolic Diameter LX 4.1 cm 3.0 - 4.0 / 2.7 - 3.8 cm LA Volume 39.5 cm??? 18 - 58 / 22 - 52 cm??? LA Volume Index 18.8 cm???/m??? 16 - 28 cm???/m??? M-MODE Aortic Root Diameter MM 3.4 cm LA Systolic Diameter MM 3.4 cm LA Ao Ratio MM 1.0 AV Cusp Separation MM 2.3 cm DOPPLER MV Area PHT 2.5 cm??? Mitral E Point Velocity 69.1 cm/s Mitral A Point Velocity 104.1 cm/s Mitral E to A Ratio 0.7 MV Deceleration Time 298.1 ms TR Peak Velocity 235.9 cm/s TR Peak Gradient 22.3 mmHg FINDINGS Left Ventricle Left ventricular ejection fraction is estimated at 55-60 %.Normal left ventricular systolic function with no obvious regional wall motion abnormalities. Left ventricular cavity size normal.Mildly increased left ventricular wall thickness. Right Ventricle Normal right ventricular size and function. Right ventricular systolic pressure within normal limits. Right Atrium Mild right atrial dilatation. Left Atrium Mildly increased left atrial diameter. Mitral Valve Structurally normal mitral valve. Mild mitral regurgitation. No mitral stenosis.mitral annular calcification. Aortic Valve Trileaflet aortic valve. No aortic valve stenosis or regurgitation. Tricuspid Valve Structurally normal tricuspid valve. Mild tricuspid regurgitation. No tricuspid stenosis. Pulmonic Valve Structurally normal pulmonic valve. Trace pulmonic regurgitation. No pulmonic stenosis. Pericardium No pericardial or pleural effusion. Aorta Normal size aortic root and proximal ascending aorta. CONCLUSIONS 1. Normal left ventricular size and systolic function 2. Mild mitral and tricuspid regurgitation with normal pulmonary pressure Technically difficult study. Definity ECHO contrast used for improved visualization of the endocardial borders (inadequate visualization of two or more contiguous segments). Previewed by: Dr. Jose Rabago MD (Electronically Signed) Final Date: 14 March 2024 17:55
[2024-03-15] MEDS ORDERED: ATORVASTATIN 10 MG TAB PO SCH (09:00)
[2024-03-15] MEDS ORDERED: hydroCHLOROthiazide 25 MG TAB PO SCH (09:00)
[2024-03-15] MEDS ORDERED: LOSARTAN 50 MG TAB PO SCH (09:00)
[2024-03-15] MEDS ORDERED: CLOPIDOGREL 75 MG TAB PO SCH (09:00)
== END 2024-03-14 17:32 | disposition home or self-care (01) ==
LOC: EC 11:09 → 6NMEDSUR 14:27
PROVIDERS: ADMIT Family Medicine; ATTEND Family Medicine
DX: R47.01 Aphasia (principal); R00.0 Tachycardia, unspecified; I10 Essential (primary) hypertension; E78.5 Hyperlipidemia, unspecified; J45.909 Unspecified asthma, uncomplicated; K21.9 Gastro-esophageal reflux disease without esophagitis; E11.42 Type 2 diabetes mellitus with diabetic polyneuropathy; F41.9 Anxiety disorder, unspecified; H91.90 Unspecified hearing loss, unspecified ear; Z86.718 Personal history of other venous thrombosis and embolism; Z79.01 Long term (current) use of anticoagulants; Z79.02 Long term (current) use of antithrombotics/antiplatelets; Z79.82 Long term (current) use of aspirin; Z79.899 Other long term (current) drug therapy; Z88.0 Allergy status to penicillin; Z88.2 Allergy status to sulfonamides
CPT/HCPCS: 99285; 36415; 93005; 97161; 92610; 92523; 80061; 80053; 82550; 84484; 85025; 85610; 85730; 83036; 71046; 70496; 70450; 70498; 70551; G0378 ×2; C8929; Q9957; Q9967; 93306

== ENCOUNTER 2024-03-29 12:31 | Emergency (ER) | payer MEDICARE, BC ==
[2024-03-29 12:38] VITALS: RESP 18
--- NOTE | 2024-03-29 13:02 | ED ---
Lower Extremity Injury HPI - General Chief Complaint: Extremity Injury, Lower Stated Complaint: Fall Both Knees/Ankles Time Seen by Provider: 03/29/24 12:59 Source: patient, RN notes reviewed Mode of arrival: wheelchair Limitations: physical limitation - History of Present Illness Initial Comments: 79-year-old female presenting to the ER with a chief complaint of a fall. Patient states she was outside when her phone alarm went off reminding her to take her medications. She states when attempting to walk into the house she excellently tripped on the carpet causing her to fall landing on her knees. She denies any head injury, loss of consciousness. She does take Eliquis for DVT. Patient is reporting pain to lateral aspect of right knee and overlying right fifth metatarsal. Patient also was complaining of medial left knee pain and left ankle pain. Patient took Tylenol prior to arrival for pain control. Denies any paresthesias. Patient does report a history of meniscus surgery by Dr. Lane on the left knee and she has chronic pain in her left knee. No other injuries or complaints. - Related Data Home Medications Medication Instructions Recorded Confirmed Glucosam/Jaren-Msm1/C/Robert/Bosw 1 tab PO BID 01/25/15 03/13/24 [Glucosamine-Chondroitin Tablet] Tolterodine [Detrol] 2 mg PO BID 01/25/15 03/13/24 Vitamin B Complex 1 cap PO DAILY 01/25/15 03/13/24 Montelukast Sodium [Singulair] 10 mg PO HS 06/26/17 03/13/24 atenoloL 25 mg PO DAILY 06/26/17 03/13/24 Acetaminophen [Tylenol] 500 mg PO Q4-6H PRN 01/14/21 03/13/24 Calcium Carbonate/Vitamin D3 1 tab PO DAILY 01/14/21 03/13/24 [Calcium 500 mg-Vit D3 5 mcg (200 Unit)] Fluticasone Propion/Salmeterol 1 puff INHALATION RT-BID 01/14/21 03/13/24 [Wixela 500-50 Inhub] Cetirizine HCl [Zyrtec] 10 mg PO DAILY 11/16/21 03/13/24 Cyanocobalamin (Vitamin B-12) 1,000 mcg PO DAILY 11/16/21 03/13/24 [Vitamin B-12] Apixaban [Eliquis] 5 mg PO BID 03/13/24 03/13/24 Cbd Gummy 1 tab PO HS 03/13/24 03/13/24 Cholecalciferol [Vitamin D3 (125 125 mcg PO DAILY 03/13/24 03/13/24 Mcg = 5000 Iu)] Cranberry Fruit Extract [Cranberry] 500 mg PO DAILY 03/13/24 03/13/24 Cyclobenzaprine [Flexeril] 10 mg PO TID PRN 03/13/24 03/13/24 HYDROcodone/APAP 7.5-325MG [Freeman 1 tab PO Q6H PRN 03/13/24 03/13/24 7.5-325] Multivitamins, Thera [Multivitamin 1 tab PO DAILY 03/13/24 03/13/24 (formulary)] Omeprazole [PriLOSEC] 20 mg PO DAILY 03/13/24 03/13/24 traMADol HCL 50 mg PO Q4-6H PRN 03/13/24 03/13/24 Previous Rx's Medication Instructions Recorded Clopidogrel [Plavix] 75 mg PO DAILY #30 tab 03/14/24 Losartan [Cozaar] 50 mg PO DAILY #30 tab 03/14/24 Rosuvastatin [Crestor] 20 mg PO DAILY #30 tablet 03/14/24 hydroCHLOROthiazide [Hydrodiuril] 25 mg PO DAILY #30 tab 03/14/24 Allergies Allergy/AdvReac Type Severity Reaction Status Date / Time amoxicillin Allergy itchy Verified 03/29/24 12:38 throat Sulfa (Sulfonamide Allergy Unknown Verified 03/29/24 12:38 Antibiotics) sulfamethoxazole Allergy Rash/Hives Verified 03/29/24 12:38 [From Bactrim] trimethoprim [From Bactrim] Allergy Rash/Hives Verified 03/29/24 12:38 gabapentin AdvReac dizzy Verified 03/29/24 12:38 lisinopril AdvReac Cough Verified 03/29/24 12:38 [id number] Reductase AdvReac leg Verified 03/29/24 12:38 Inhibitor swelling & pain Review of Systems ROS Statement: Those systems with pertinent positive or pertinent negative responses have been documented in the HPI. ROS Other: All systems not noted in ROS Statement are negative. Past Medical History Past Medical History: Asthma, CVA/TIA, Diabetes Mellitus, Fibromyalgia, GERD/Reflux, Hearing Disorder / Deafness, Hyperlipidemia, Osteoarthritis (OA), Pneumonia, Skin Disorder Additional Past Medical History / Comment(s): Hx. bronchial asthma, chronic ALLERGIC rhinitis, edema legs, hx. superficial thrombophlebitis, spinal stenosis, scoliosis of the spine, takes atenolol for palpitations, hiatal hernia, degenerative disc disease, peripheral neuropathy, diet controlled diabetic, fell last Sunday & fx. nose, possibly hairline fx. 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 Mother Family Medical History: Cancer General Exam Limitations: physical limitation Respiratory exam: Present: normal lung sounds bilaterally. Absent: respiratory distress, wheezes, rales, rhonchi, stridor Cardiovascular Exam: Present: regular rate, normal rhythm, normal heart sounds. Absent: systolic murmur, diastolic murmur, rubs, gallop, clicks Extremities exam: Present: normal inspection, full ROM, tenderness (Right lateral knee and fifth metatarsal. No overlying skin changes. Left medial knee.) Neurological exam: Present: alert, oriented X3, CN II-XII intact Skin exam: Present: warm, dry, intact, normal color. Absent: rash Course Vital Signs 03/29/24 03/29/24 12:33 14:43 Temperature 97.5 F L 97.9 F Pulse Rate 73 75 Respiratory 18 18 Rate Blood Pressure 112/68 110/63 O2 Sat by Pulse 97 99 Oximetry Medical Decision Making - Medical Decision Making Was pt. sent in by a medical professional or institution (LISSETH Thakur, [employer], urgent care, hospital, or fci...) When possible be specific @ -No Did you speak to anyone other than the patient for history (EMS, parent, family, police, friend...)? What history was obtained from this source @ -No Did you review nursing and triage notes (agree or disagree)? Why? @ -I reviewed and agree with nursing and triage notes Were old charts reviewed (outside hosp., previous admission, EMS record, old EKG, old radiological studies, urgent care reports/EKG's, fci records)? Report findings @ -No old charts were reviewed Differential Diagnosis (chest pain, altered mental status, abdominal pain women, abdominal pain men, vaginal bleeding, weakness, fever, dyspnea, syncope, headache, dizziness, GI bleed, back pain, seizure, CVA, palpatations, mental health, musculoskeletal)? @ -Fracture, dislocation, contusion, hematoma, intracranial hemorrhage, concussion, abrasion, laceration this list does not like to be all-inclusive EKG interpreted by me (3pts min.). @ -None done X-rays interpreted by me (1pt min.). @ -Bilateral knee x-ray negative for acute osseous process. Small joint effusion. Right ankle and foot x-ray negative for acute evidence of fractures or dislocations. Mild degenerative changes. Soft tissue swelling around ankle. CT interpreted by me (1pt min.). @ -None done U/S interpreted by me (1pt. min.). @ -None done What testing was considered but not performed or refused? (CT, X-rays, U/S, labs)? Why? @ -None What meds were considered but not given or refused? Why? @ -None Did you discuss the management of the patient with other professionals (professionals i.e. LISSETH Thakur, [employer], lab, RT, psych nurse, vp digital marketing social media and crm, school clerk, teacher, correctional security officer, caseworker intake)? Give summary @ -No Was smoking cessation discussed for >3mins.? @ -No Was critical care preformed (if so, how long)? @ -No Were there social determinants of health that impacted care today? How? (Homelessness, low income, unemployed, alcoholism, drug addiction, transportation, low edu. Level, literacy, decrease access to med. care, half-way, rehab)? @ -No Was there de-escalation of care discussed even if they declined (Discuss DNR or withdrawal of care, Hospice)? DNR status @ -No What co-morbidities impacted this encounter? (DM, HTN, Smoking, COPD, CAD, Cancer, CVA, ARF, Chemo, Hep., AIDS, mental health diagnosis, sleep apnea, morbid obesity)? @ -None Was patient admitted / discharged? Hospital course, mention meds given and route, prescriptions, significant lab abnormalities, going to OR and other pertinent info. @ -Discharge. 79-year-old female presenting to the ER with a chief complaint of a fall. Patient complaining of bilateral knee pain and right ankle/foot pain. Patient denying head injury. X-rays completed negative for acute osseous process. There is a small joint effusion noted to right knee. Patient given p.o. Freeman for pain control in the ER, with improvement. Upon reevaluation, patient resting comfortably exam room no signs of acute distress. Results discussed with patient, all questions answered. Tylenol 3 starter pack given. Strict return parameters discussed. Patient discharged in stable condition with follow-up to PCP. Patient verbally expressed understanding and agreement with care plan. Case discussed with ED attending, Dr. Judge. Undiagnosed new problem with uncertain prognosis? @ -No Drug Therapy requiring intensive monitoring for toxicity (Heparin, Nitro, Insulin, Cardizem)? @ -No Were any procedures done? @ -No Diagnosis/symptom? @ -Fall/knee pain Acute, or Chronic, or Acute on Chronic? @ -Acute Uncomplicated (without systemic symptoms) or Complicated (systemic symptoms)? @ -Uncomplicated Side effects of treatment? @ -No Exacerbation, Progression, or Severe Exacerbation? @ -No Poses a threat to life or bodily function? How? (Chest pain, USA, MA, pneumonia, PE, COPD, DKA, ARF, appy, cholecystitis, CVA, Diverticulitis, Homicidal, Suicidal, threat to staff... and all critical care pts) @ -No - Radiology Data Radiology results: report reviewed, image reviewed Disposition Clinical Impression: Fall, Knee pain Disposition: HOME SELF-CARE Condition: Stable Instructions (If sedation given, give patient instructions): Knee Pain (ED) Additional Instructions: Continue taking [id number] Tylenol for pain control. Follow-up with PCP and/or Dr. Lane. Return to the ER for any new or worsening symptoms. Is patient prescribed a controlled substance at d/c from ED?: No Referrals: Vira Torres MD [Primary Care Provider] - 1-[address] DO [Doctor of Osteopathic Medicine] - 1-2 days Time of Disposition: 14:19
[2024-03-29] MEDS: HYDROcodone/APAP 7.5-325MG 1 EACH TAB PO ONE (13:25)
--- NOTE | 2024-03-29 13:48 | XR ---
EXAMINATION TYPE: XR foot complete RT, XR ankle complete RT DATE OF EXAM: 03/29/2024 1:21 PM CLINICAL INDICATION: Female, 79 years old with history of fall; H COMPARISON: Same day radiographs TECHNIQUE: XR foot complete RT, XR ankle complete RT examined in the AP, oblique, and lateral project ions. FINDINGS: Fixation changes to the right first digit with hardware in place and appears intact. No evidence of a ny acute osseous pathology. Multifocal degeneration changes throughout the joints of the foot with os teophyte formation and joint space narrowing. Soft tissue swelling without evidence of subcutaneous g as or erosion to suggest osteomyelitis. Calcaneal plantar spurring is present. IMPRESSION: 1. No evidence of acute fracture. 2. Mild/moderate degeneration changes throughout the joints of the foot. 3. Soft tissue swelling around the ankle without evidence of fracture. [facility], Workstation: [id number], 03/29/2024 1:46 PM
--- NOTE | 2024-03-29 13:50 | XR ---
EXAMINATION TYPE: XR knee complete bilateral DATE OF EXAM: 03/29/2024 1:21 PM CLINICAL INDICATION: Female, 79 years old with history of fall; H COMPARISON: None. TECHNIQUE: XR knee complete bilateral; examined in Frontal, lateral and oblique projections. FINDINGS: No evidence of any acute osseous pathology, soft tissue swelling is noted. Tricompartment al osteophyte formation involving the femoral condyles, tibial plateau and patella. Mild joint space narrowing. Small joint effusion present. IMPRESSION: 1. No acute osseous pathology. 2. Mild tricompartmental osteoarthritic changes. 3. Small joint effusion present. [facility], Workstation: [id number], 03/29/2024 1:47 PM
[2024-03-29] MEDS: ACET/COD 300 MG/30 MG STARTER PACK 6 TAB BTL PO STA (14:31)
[2024-03-29 14:44] VITALS: BP 110/63; PULSE 75; TEMP 97.9
== END 2024-03-29 14:44 | disposition home or self-care (01) ==
LOC: EC 12:31
CPT/HCPCS: 99283

== ENCOUNTER → 2024-10-06 | Outpatient (CLI) | payer MEDICARE, BC ==
[2024-10-06 15:33] LABS: ALT 24 U/L (8-44); AST 22 U/L (13-35); Albumin 4.1 g/dL (3.8-4.9); Albumin/Globulin Ratio 1.46 Ratio (1.60-3.17); Alkaline Phosphatase 101 U/L (41-126); BUN/Creat Ratio 18.44 Ratio (12.00-20.00); Blood Urea Nitrogen 16.6 mg/dL (9.0-27.0); Calcium 9.7 mg/dL (8.7-10.3); Carbon Dioxide 24.5 mmol/L (21.6-31.8); Chloride 102 mmol/L (96-109); Chol/HDL Ratio 1.78 Ratio; Globulin 2.8 g/dL (1.6-3.3); Glucose 132 mg/dL (70-110); LDL Cholesterol,Calculated 53.6 mg/dL (0.0-131.0); Potassium 3.9 mmol/L (3.5-5.5); Sodium 138 mmol/L (135-145); Total Bilirubin 0.4 mg/dL (0.3-1.2); Total Protein 6.9 g/dL (6.2-8.2); VLDL Calculation 10.82 mg/dL (5.00-40.00)
[2024-10-06 19:08] LABS: Microalbumin Creatinine Ratio <19 mg/g Cr (0-30); Urine Creatinine 64.7 mg/dL (28.0-217.0)
== END | disposition home or self-care (01) ==
LOC: LABWHC1 08:06
PROVIDERS: ATTEND Internal Medicine Endocrinology, Diabetes & Metabolism
DX: E11.65 Type 2 diabetes mellitus with hyperglycemia (principal)
CPT/HCPCS: 36415; 80053; 80061; 82043; 82570; 83036; 84443

== ENCOUNTER 2024-12-30 07:47 | Day surgery (SDC) | payer MEDICARE, BC ==
[2024-12-30] MEDS: IV FLUID CONTINUATION 1,000 ML IV ONE (08:14)
[2024-12-30 08:27] VITALS: RESP 16; TEMP 97.8
[2024-12-30] MEDS: LACTATED RINGERS 1,000 ML IV SCH (08:28)
[2024-12-30 08:30] LABS: Glucose,Whole Blood 96 mg/dL (70-110)
[2024-12-30] MEDS ORDERED: PROPOFOL 10 MG/ML 20 ML VIAL IV ONE (08:56)
--- NOTE | 2024-12-30 09:17 | P.PCN ---
Date of Procedure: 12/30/24 Procedure(s) Performed: BRIEF HISTORY: Patient is a 79-year-old pleasant white female scheduled for an elective colonoscopy as a part of screening for colon cancer. PROCEDURE PERFORMED: Colonoscopy with snare polypectomy PREOPERATIVE DIAGNOSIS: Screening for colon cancer. IV sedation per Anesthesia. PROCEDURE: After informed consent was obtained, the patient, was brought into the endoscopy unit. IV sedation was administered by Anesthesia under continuous monitoring. Digital rectal examination was normal. Initially the Olympus CF-160 flexible video colonoscope was then inserted in the rectum, gradually advanced into the cecum and further advancement was not possible because of acute angulat ion in this area. The scope was removed and a pediatric colonoscopy was then introduced into the rectum and gradually advanced to the cecum with moderate to severe difficulty. . Careful examination was performed as the scope was gradually being withdrawn. Ileocecal valve and the appendiceal orifice were visualized and appeared normal. Prep was excellent. Mucosa of the cecum, an 8 mm sessile polyp that was removed with cold snare polypectomy. In the ascending colon there was a 6 mm polyp removed by cold snare polypectomy. Rest of the ascending colon, transverse colon, descending colon, sigmoid colon, and rectum appeared normal. Scattered diffuse diverticulosis. Retroflexion was performed in the rectum and grade 2 internal were seen. The patient tolerated the procedure well. IMPRESSION: 8 mm cecal polyp by the appendiceal orifice status post cold snare polypectomy 6 mm ascending colon polyp status post cold snare polypectomy Scattered diffuse diverticula RECOMMENDATIONS: Findings of this examination were discussed with the patient as well as her family. She was advised to follow the biopsy results. If the biopsy is adenoma she can have repeat colonoscopy in 3 years.
[2024-12-30 09:22] VITALS: PULSE 72
[2024-12-30 09:35] VITALS: BP 111/78
== END 2024-12-30 10:14 | disposition home or self-care (01) ==
LOC: ORWHC2ENDO 07:47
PROVIDERS: ATTEND Internal Medicine Gastroenterology
DX: Z12.11 Encounter for screening for malignant neoplasm of colon (principal); D12.2 Benign neoplasm of ascending colon; K57.30 Diverticulosis of large intestine without perforation or abscess without bleeding; I10 Essential (primary) hypertension; E11.42 Type 2 diabetes mellitus with diabetic polyneuropathy; E78.5 Hyperlipidemia, unspecified; I49.9 Cardiac arrhythmia, unspecified; J45.909 Unspecified asthma, uncomplicated; K44.9 Diaphragmatic hernia without obstruction or gangrene; Z79.02 Long term (current) use of antithrombotics/antiplatelets; Z79.84 Long term (current) use of oral hypoglycemic drugs; Z79.899 Other long term (current) drug therapy; Z86.73 Personal history of transient ischemic attack (TIA), and cerebral infarction without residual deficits
CPT/HCPCS: 88305; 45385; J2704